=== PATIENT | female | born 1945 | race Caucasian/White ===

== ENCOUNTER 2019-04-01 08:54 | Inpatient (IN) | payer MEDICARE ==
[2019-04-01] MEDS ORDERED: methylPREDNISolone 125 MG* 2 ML VIAL IV ONE (09:05)
[2019-04-01] MEDS ORDERED: Albuterol/Ipratropium NEB.SOL* Albuterol 2.5 MG/Ipratropium 0.5 MG 3 ML INH ONE (09:05)
--- NOTE | 2019-04-01 09:07 | ED ---
Shortness of Breath - HPI Summary HPI Summary: This patient is a 73 year old female brought in by EMS presenting to [facility] with a chief complaint of SOB since 2 days ago. The patient reports dizziness, nausea , and vomiting. The patient has a Hx of COPD. The patient has a DNR that refuses CPR/intubation. She received nebulizer treatments by EMS en route. - History of Current Complaint Chief Complaint: EDShortnessOfBreath Time Seen by Provider: 04/01/19 08:58 Hx Obtained From: Patient Onset/Duration: Lasting Days Associated Signs & Symptoms: Wheezing - Risk Factors Pseudomonas: Chronic Lung Disease - Allergy/Home Medications Allergies/Adverse Reactions: Allergies Allergy/AdvReac Type Severity Reaction Status Date / Time latex Allergy Unknown Verified 04/01/19 09:42 Reaction Details Sulfa (Sulfonamide Allergy Unknown Verified 04/01/19 09:42 Antibiotics) Reaction Details Home Medications: Home Medications Albuterol 2.5MG/3ML (0.083%)* [Ventolin 2.5 MG/3 ML NEB.RASHAD*] 2.5 mg INH Q4H PRN 04/01/19 [History Confirmed 04/01/19] Fluoxetine HCl [Prozac] 60 mg PO DAILY 04/01/19 [History Confirmed 04/01/19] Fluticasone/Vilanterol [Breo Ellipta 200-25 Mcg INH] 1 each IH DAILY 04/01/19 [ History Confirmed 04/01/19] Gabapentin 400 mg PO TID 04/01/19 [History Confirmed 04/01/19] LORazepam [Ativan 0.5 MG TAB] 0.5 mg PO SEE INSTRUCTIONS PRN 04/01/19 [History Confirmed 04/01/19] Levothyroxine TAB* [Synthroid TAB*] 50 mcg PO DAILY 04/01/19 [History Confirmed 04/01/19] Montelukast Sodium TAB* [Singulair TAB*] 10 mg PO DAILY 04/01/19 [History Confirmed 04/01/19] Morphine CONCENTRATE ORAL SYR* 10 mg PO Q4HR PRN 04/01/19 [History Confirmed ] Omeprazole 20 mg PO DAILY 04/01/19 [History Confirmed 04/01/19] Potassium Chloride [K-Tab] 20 meq PO DAILY 04/01/19 [History Confirmed 04/01/19] Sennosides/Docusate Sodium [Senna Plus Tablet] 2 each PO BEDTIME 04/01/19 [ History Confirmed 04/01/19] Umeclidinium Emmett [Incruse Ellipta] 1 puff IN DAILY 04/01/19 [History Confirmed 04/01/19] dilTIAZem HCl [Diltiazem HCl] 90 mg PO BID 04/01/19 [History Confirmed 04/01/19] predniSONE [Prednisone 5 MG TAB] 5 mg PO DAILY 04/01/19 [History Confirmed 04/01] PMH/Surg Hx/FS Hx/Imm Hx Endocrine/Hematology History: Reports: Hx Thyroid Disease Respiratory History: Reports: Hx Chronic Obstructive Pulmonary Disease (COPD) Psychiatric History: Reports: Hx Anxiety, Hx Depression Infectious Disease History: No Infectious Disease History: Denies: Traveled Outside the [place] in Last 30 Days - Family History Known Family History: Negative: Seizure Disorder - Social History Alcohol Use: None Hx Substance Use: No Hx Tobacco Use: Yes Smoking Status (MU): Former Smoker Review of Systems Positive: Shortness Of Breath Positive: Vomiting, Nausea All Other Systems Reviewed And Are Negative: Yes Physical Exam - Summary Physical Exam Summary: Appearance: Well appearing, Skin: warm, dry, reflects adequate perfusion Head/face: normal Eyes: EOMI, LIBRADO ENT: normal Neck: supple, non-tender Respiratory: Bilateral wheezes. Cardiovascular: Tachycardia, pulses symmetrical Abdomen: non-tender, soft Musculoskeletal: normal, strength/ROM intact Neuro: A&Ox3 Triage Information Reviewed: Yes Vital Signs On Initial Exam: Initial Vitals Temp Pulse Resp BP Pulse Ox 99.0 F 123 34 147/79 92 04/01/19 08:58 04/01/19 08:58 04/01/19 08:58 04/01/19 08:58 04/01/19 08:58 Vital Signs Reviewed: Yes Diagnostics - Vital Signs Vital Signs Temp Pulse Resp BP Pulse Ox 04/01/19 08:58 99.0 F 123 34 147/79 92 - Laboratory Result Diagrams: 04/01/19 09:55 04/01/19 09:54 Lab Statement: Any lab studies that have been ordered have been reviewed, and results considered in the medical decision making process. - Radiology CXR Radiology Interpretation Completed By: Radiologist Summary of Radiographic Findings: Findings could be compatible with pulmonary edema/vascular congestion or early appearance of instersitial lung disease. There are no prior chest x-rays for comparison to comment on chronicity. ED Provider has reviewed this report. - EKG 0920 Cardiac Rate: Tachycardia - 119 BPM EKG Rhythm: Sinus Tachycardia Course/Dx - Course Course Of Treatment: This patient is a 73 year old female with a Hx of COPD brought in by EMS presenting to [facility] with a chief complaint of SOB since 2 days ago. The patient received breathing treatments in the ED. CXR revealed findings could be compatible with pulmonary edema/vascular congestion or early appearance of instersitial lung disease. There are no prior chest x-rays for comparison to comment on chronicity. Dr. Matamoros, hospitalist, accepted the patient for admission. The patient was agreeable with this plan. - Diagnoses Differential Diagnosis/HQI/PQRI: Positive: Asthma, Bronchitis, CHF, COPD Exacerbation, Pneumonia Provider Diagnoses: Pneumonia, COPD exacerbation - Critical Care Time Critical Care Time: 30-74 min Discharge - Sign-Out/Discharge Documenting (check all that apply): Patient Departure - Admission - Discharge Plan Condition: Stable Disposition: ADMITTED TO [facility] Referrals: Romy Terry MD [Medical Doctor] - - Billing Disposition and Condition Condition: STABLE Disposition: Admitted to [facility] - Attestation Statements Document Initiated by Anthony: Yes Documenting Sharronibkeyur: Shane Vazquez Provider For Whom Anthony is Documenting (Include Credential): Ortiz Devi MD Scribe Attestation: Shane Carter scribed for Ortiz Devi MD on 04/01/19 at 1130. Scribe Documentation Reviewed: Yes Provider Attestation: The documentation as recorded by the Shane morton accurately reflects the service I personally performed and the decisions made by , Ortiz Devi MD Status of Scribe Document: Viewed
[2019-04-01] MEDS ORDERED: Ondansetron INJ* 2 MG/ML VIAL IV ONE (09:15)
[2019-04-01 10:12] LABS: Activated Partial Thrombo Time 30.3 seconds (26.0-38.0); INR 0.98 (0.82-1.09)
[2019-04-01 10:18] LABS: Hematocrit 34 % (35-47); Hemoglobin 10.9 g/dL (12.0-16.0); Mean Corpuscular HGB Conc 32 g/dL (31-36); Mean Corpuscular Hemoglobin 29 pg (27-31); Mean Corpuscular Volume 91 fL (80-97); Mean Platelet Volume 7.2 fL (7.4-10.4); Platelet Count 610 10^3/uL (150-450); Red Cell Distribution Width 16 % (10-15); White Blood Count 34.7 10^3/uL (3.5-10.8)
[2019-04-01 10:23] LABS: Albumin 3.9 g/dL (3.2-5.2); Albumin/Globulin Ratio 1.3 (1-3); BUN/Creatinine Ratio 26.6 (8-20); Calcium 9.5 mg/dL (8.6-10.3); EGFR African American 86.3 (>60); EGFR Non-African American 71.3 (>60); Globulin 2.9 g/dL (2-4); Potassium 3.6 mmol/L (3.5-5.0); Total Bilirubin 0.4 mg/dL (0.2-1.0); Total Protein 6.8 g/dL (6.4-8.9)
[2019-04-01 10:24] LABS: Troponin I 0.27 ng/mL (<0.04)
[2019-04-01] MEDS ORDERED: Piperacillin/Tazobac ADVAN(*) 3.375 GM in NS 0.9% 100 ML* 100 ML IVPB ONE (10:25)
[2019-04-01 11:04] LABS: ABS Basophils 0.1 10^3/ul (0-0.2); ABS Lymphocytes 0.7 10^3/ul (1.0-4.8); ABS Monocytes 1.4 10^3/ul (0-0.8); ABS Neutrophils 32.5 10^3/ul (1.5-7.7); Lymphocyte % 2.1 %
[2019-04-01] MEDS ORDERED: Lorazepam PYXIS KEY PRN (11:50)
[2019-04-01] MEDS: NS 0.9% 1000 ML** 1,000 ML IV SCH ×2 (11:54→21:36)
[2019-04-01] MEDS ORDERED: Vancomycin per Pharmacy* NOTE FOLLOW UP SCH (12:00)
[2019-04-01] MEDS ORDERED: Vancomycin(*) 1,000 MG in NS 0.9% 250 ML* 250 ML IVPB ONE (12:00)
[2019-04-01] MEDS: Albuterol 2.5 MG/3 ML NEB.SOL* (0.083%) INH SCH ×3 (12:34→20:11)
[2019-04-01] MEDS: Azithromycin 500 mg/250 ml NS 500 MG/250 ML BAG IVPB SCH (14:01)
[2019-04-01 14:11] LABS: Troponin I 0.25 ng/mL (<0.04)
[2019-04-01] MEDS: Diltiazem TAB* 60 MG PO SCH ×2 (14:49→21:42)
[2019-04-01] MEDS: Gabapentin CAP(*) 400 MG PO SCH ×2 (14:50→21:41)
[2019-04-01] MEDS: Heparin VIAL(*) 5000 UNITS/ML VIAL (FIVE THOUSAND) SUBCUT SCH ×2 (14:50→21:23)
[2019-04-01] MEDS: LORazepam INJ* 2 MG/ML 1 ML VIAL IV PUSH PRN (16:41)
[2019-04-01] MEDS: Morphine ORAL CONCENTRATE* 5 MG/0.25 ML ORAL.SYRIN PO PRN ×2 (16:41→21:40)
[2019-04-01] MEDS: Lactobacillus Acidophilus* 1 TAB PO SCH ×2 (16:41→21:41)
[2019-04-01] MEDS: methylPREDNISolone SOD 40 MG* 1 ML VIAL IV SCH (16:41)
[2019-04-01] MEDS: Cefepime 2 GM in Dextrose(*) 2 GM/50 ML BAG IV SCH (18:03)
--- NOTE | 2019-04-01 20:18 | HP ---
HISTORY AND PHYSICAL: DATE OF ADMISSION: 04/01/19 PRIMARY CARE PROVIDER: Provider at [facility]. CHIEF COMPLAINT: Shortness of breath and hypoxia. HISTORY OF PRESENT ILLNESS: Ms. Barbosa is a 73-year-old female with history of end- stage COPD, who on the night prior to admission felt that she was being stalked by another resident. She noted that resident to be standing at door, peeping into her room. She became very nervous because of this and then subsequently developed severe shortness of breath. She called for nursing who gave her a nebulizer treatment due to marked wheezing. Several hours later, she called for another nebulizer treatment, however, it was too early and she was therefore given her dose of Roxanol. She received more Roxanol in the morning. Nursing went to check on the patient at some point early this morning and found her lying on the floor, cyanotic and with an O2 saturation of 48% on 4 L of oxygen. The patient was asked if she wanted to go to the emergency room and she said no. She was asked again and she again said no, then we called her daughter and the daughter said yes. The patient was subsequently brought to the emergency room for evaluation. At this point, despite the patient having comfort measures only dictated on her MOLST form, she does whish to be treated. She states that she chronically is severely short of breath, however, last night her breathing became worse. She denies any cough or sputum production. She denies any fever or chills. She denies any chest pain. The patient states that prior to arriving at [facility] at the end of February. She was living independently in [place]. Her daughter states that she had a hospitalization for respiratory issue approximately every other week. This went on for months and therefore, the patient moved to [facility] to see with more support she will be able to stay out of the hospital. PAST MEDICAL HISTORY: 1. COPD with chronic hypoxic respiratory failure, on 4 L O2 continuously. 2. Baseline tachycardia. PAST SURGICAL HISTORY: 1. D and C. 2. Left foot surgery. MEDICATIONS: 1. Omeprazole 20 mg p.o. daily. 2. Prednisone 5 mg p.o. daily. 3. Senna/docusate 2 caps p.o. q.h.s. 4. Potassium chloride 20 mEq p.o. daily. 5. Singulair 10 mg p.o. daily. 6. Ativan 0.5 mg p.o. daily p.r.n. anxiety. 7. Fluoxetine 60 mg p.o. daily. 8. Albuterol 1 neb inhale q.4 hours p.r.n. shortness of breath. 9. Diltiazem 90 mg p.o. b.i.d. 10. Incruse Ellipta 1 puff inhale daily. 11. Levothyroxine 50 mcg p.o. daily. 12 Gabapentin 400 mg p.o. t.i.d. 13. Breo Ellipta 1 puff inhale daily. 14. Roxanol 10 mg p.o. q.4 hours p.r.n. air hunger. ALLERGIES: SULFA. FAMILY HISTORY: Mom at the age of 73 of liver cancer. Dad at the age of 65, he had an PA and CVA. SOCIAL HISTORY: The patient is a former smoker. She believes she quit approximately 12 years ago. She smokes approximately 2 packs per day x50 years. She does not drink alcohol. 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 She is . She has 3 children. Her daughter, Shweta, who is present with her during her history and physical, is her healthcare proxy. REVIEW OF SYSTEMS: A complete 11 system review of systems was obtained. Pertinent positives and negatives are as HPI. In addition, the patient does states she has chronic anorexia and poor appetite. She did vomit just prior to EMS bringing her to the hospital and she has felt nauseous in the emergency room. She has significant anxiety and the rest of the review of systems was negative. PHYSICAL EXAMINATION GENERAL: The patient is a well-developed, elderly chronically ill appearing female, seen sitting up on bed. Appearing to be tachypneic and in mild respiratory distress. VITAL SIGNS: Blood pressure 108/80, pulse 118, respirations 19, temperature 99 , O2 sat 92% on 4 L. HEENT: Pupils are equal and round. Extraocular muscles were intact. Oropharynx is clear. Oral mucosa is moist. There is no submandibular, cervical , supraclavicular adenopathy. Thyroid is not enlarged. No thyroid nodules are noted. PULMONARY: There are minimal breath sounds heard in all lung barr. CARDIAC: Normal S1, S2. Heart rate is regular, but tachycardic. There is no lower extremity edema. ABDOMEN: Bowel sounds present. Abdomen is soft, nontender, nondistended. MUSCULOSKELETAL: There is cyanosis or clubbing of the digits. There is full active range of all 4 extremities. SKIN: Warm and dry. There are no rashes. NEUROLOGIC: Cranial nerves II through XII are grossly intact. Sensation is intact to light touch. Strength is 5/5 and symmetric in both upper and lower extremities bilaterally. PSYCH: The patient is alert. She is oriented x3. Affect appears appropriate. DIAGNOSTIC DATA/LAB DATA: WBC 34.7, hemoglobin 10.9, hematocrit 34, platelet 610. INR 0.98. Sodium 139, potassium 3.6, chloride 97, CO2 31, BUN 21, creatinine 0.79, glucose 128, lactic acid 0.8, calcium 9.5. Bilirubin 0.4, AST 19, AFT 20, alk phos 74. Troponin 0.27. BNP 57. Albumin 3.9. EKG reveals sinus tachycardia. Chest x-ray findings could be compatible with pulmonary edema/vascular congestion or early appearance of interstitial lung disease. There are no prior chest x-rays for comparison. ASSESSMENT AND PLAN: Ms. Barbosa is a 73-year-old female who has a history of end stage renal disease and chronic hypoxic respiratory failure, on 4 L O2 continuously, who developed probable chronic obstructive pulmonary disease exacerbation at the residential, prompting transfer to the emergency room for evaluation. 1. Chronic obstructive pulmonary disease exacerbation. At this point, the patient is on her baseline level of O2. She, however, is quite tachypneic and appearing to be in respiratory distress. The patient will be admitted for IV steroids, round the clock nebulizer treatments and IV antibiotics, though I do not suspect pneumonia based on the chest x-ray and history. We will likely give broad spectrum antibiotics for the next couple of days and weaned down to an oral antibiotic to complete a course of therapy. The patient is aware that her end stage chronic obstructive pulmonary disease going to continue to give her issues. She has already had very frequent hospitalization in [facility]. I believe continued discussions about her goals of care should be had. The patient's daughter was under the impression this patient was on hospice at the residential. We will need to determine if this is correct or not. I did explain that it is not feasible to have hospice at the residential and keep coming back and forth to hospital for admissions. We will continue Roxanol for air hunger and I will add IV Ativan for severe anxiety. 2. Sinus tachycardia and elevated troponin. I suspect these are being driven by the patient's respiratory distress and hypoxia earlier this morning. Follow up troponin has been ordered for 1300. I am not going to give anything to slow her heart rate at this point, but we will give IV fluids to see if improving her hydration status will help her heart rate. If she remains tachycardic, utilizing a calcium channel miguel may be necessary to bring heart rate down. Elevated troponin, I suspect is demand ischemia, again related to her respiratory distress, hypoxia, and ongoing sinus tachycardia. 3. Hypothyroidism, continue Synthroid. 4. DVT prophylaxis. According to the Adult Thrombosis Prophylaxis Risk Factor Assessment Guide, the patient has a total risk factor score of 4 making her high risk. She will be placed on heparin 500 units subcutaneous q.8 hours. 5. Code status is DNR/DNI. [id number]/[facility] #: [id number] MTDElver
[2019-04-01] MEDS: Senna TAB 8.6 mg* TAB PO SCH (21:41)
[2019-04-01] MEDS: Docusate CAP* 100 MG PO SCH (21:42)
[2019-04-02] MEDS: Albuterol 2.5 MG/3 ML NEB.SOL* (0.083%) INH SCH ×6 (00:30→19:37)
[2019-04-02] MEDS: methylPREDNISolone SOD 40 MG* 1 ML VIAL IV SCH ×3 (00:55→18:18)
[2019-04-02] MEDS: Vancomycin(*) 1,000 MG in NS 0.9% 250 ML* 250 ML IVPB SCH ×2 (00:55→12:46)
[2019-04-02] MEDS: Morphine ORAL CONCENTRATE* 5 MG/0.25 ML ORAL.SYRIN PO PRN ×5 (04:34→22:30)
[2019-04-02] MEDS: Heparin VIAL(*) 5000 UNITS/ML VIAL (FIVE THOUSAND) SUBCUT SCH ×3 (06:32→22:36)
[2019-04-02] MEDS: Diltiazem TAB* 60 MG PO SCH ×3 (06:33→22:29)
[2019-04-02] MEDS: Cefepime 2 GM in Dextrose(*) 2 GM/50 ML BAG IV SCH ×2 (06:33→18:17)
[2019-04-02 06:55] LABS: Hematocrit 28 % (35-47); Hemoglobin 8.8 g/dL (12.0-16.0); Mean Corpuscular HGB Conc 32 g/dL (31-36); Mean Corpuscular Hemoglobin 29 pg (27-31); Mean Corpuscular Volume 91 fL (80-97); Mean Platelet Volume 6.8 fL (7.4-10.4); Platelet Count 469 10^3/uL (150-450); Red Blood Count 3.04 10^6 /uL (3.70-4.87); Red Cell Distribution Width 16 % (10-15); White Blood Count 37.9 10^3/uL (3.5-10.8)
[2019-04-02 07:01] LABS: ABS Basophils 0.1 10^3/ul (0-0.2); ABS Lymphocytes 0.4 10^3/ul (1.0-4.8); ABS Monocytes 0.8 10^3/ul (0-0.8); ABS Neutrophils 36.5 10^3/ul (1.5-7.7); Lymphocyte % 1.2 %
[2019-04-02 07:18] LABS: Anion Gap 6 mmol/L (2-11); BUN/Creatinine Ratio 43.5 (8-20); Blood Urea Nitrogen 20 mg/dL (6-24); CO2 Carbon Dioxide 33 mmol/L (22-32); Chloride 99 mmol/L (101-111); EGFR African American 161.1 (>60); EGFR Non-African American 133.2 (>60); Glucose 132 mg/dL (70-100); Potassium 4.2 mmol/L (3.5-5.0); Sodium 138 mmol/L (135-145)
[2019-04-02] MEDS: LORazepam INJ* 2 MG/ML 1 ML VIAL IV PUSH PRN ×2 (08:12→18:12)
[2019-04-02] MEDS: Mometasone/Formoter 200/5 MDI INH SCH ×2 (08:14→19:37)
[2019-04-02] MEDS: FLUoxetine CAP* 20 MG PO SCH (08:34)
[2019-04-02] MEDS: Gabapentin CAP(*) 400 MG PO SCH ×3 (08:34→22:29)
[2019-04-02] MEDS: Levothyroxine TAB* 50 MCG TAB PO SCH (08:34)
[2019-04-02] MEDS: Pantoprazole TAB * 40 MG TAB PO SCH (08:35)
[2019-04-02] MEDS: Montelukast Sodium TAB* 10 MG PO SCH (08:36)
[2019-04-02] MEDS: Potassium Chlor TAB* 20 MEQ TAB.ER PO SCH (08:36)
[2019-04-02] MEDS: Lactobacillus Acidophilus* 1 TAB PO SCH ×2 (08:36→22:29)
--- NOTE | 2019-04-02 12:31 | PN ---
Subjective Date of Service: 04/02/19 Interval History: States she feels short of breath getting out of bed but at rest she is fine. Family History: Unchanged from Admission Social History: Unchanged from Admission Past Medical History: Unchanged from Admission Objective Active Medications: Albuterol (Ventolin 2.5 Mg/3 Ml Neb.Vandana*) 2.5 mg INH [id number] AWAKE [facility] Last Admin: 04/02/19 11:52 Dose: 2.5 mg Diltiazem HCl (Cardizem Tab*) 60 mg PO Q8HR [facility] Last Admin: 04/02/19 06:33 Dose: 60 mg Docusate Sodium (Colace Cap*) 100 mg PO BEDTIME [facility] Last Admin: 04/01/19 21:42 Dose: 100 mg Fluoxetine HCl (Prozac Cap*) 60 mg PO DAILY [facility] Last Admin: 04/02/19 08:34 Dose: 60 mg Gabapentin (Neurontin Cap(*)) 400 mg PO TID [facility] Last Admin: 04/02/19 08:34 Dose: 400 mg Heparin Sodium (Porcine) (Heparin Vial(*)) 5,000 units SUBCUT Q8HR [facility] Last Admin: 04/02/19 06:32 Dose: Not Given Azithromycin (Zithromax 500 Mg/250 Ml) 500 mg in 250 mls @ 250 mls/hr IVPB Q24H [facility] Last Admin: 04/01/19 14:01 Dose: 250 mls/hr Cefepime HCl (Maxipime 2 Gm In Dextrose Duplex (*)) 2 gm in 50 mls @ 100 mls/ hr IV Q12H [facility] Last Admin: 04/02/19 06:33 Dose: 100 mls/hr Sodium Chloride (Ns 0.9% 1000 Ml) 1,000 mls @ 100 mls/hr IV PER RATE [facility] Last Admin: 04/01/19 21:36 Dose: 100 mls/hr Vancomycin HCl 1,000 mg/ (Sodium Chloride) 250 mls @ 166.667 mls/hr IVPB Q12H [facility] Last Admin: 04/02/19 00:55 Dose: 166.667 mls/hr Lactobacillus Rhamnosus (Lactobacillus Acidophilus*) 1 tab PO BID [facility] Last Admin: 04/02/19 08:36 Dose: 1 tab Levothyroxine Sodium (Synthroid Tab*) 50 mcg PO DAILY@0600 [facility] Last Admin: 04/02/19 08:34 Dose: Not Given Lorazepam (Ativan Inj*) 0.5 mg IV PUSH Q6H PRN PRN Reason: ANXIETY Last Admin: 04/02/19 08:12 Dose: 0.5 mg Methylprednisolone Sodium Succinate (Solu-Medrol 40 Mg) 40 mg IV Q8H [facility] Last Admin: 04/02/19 08:34 Dose: 40 mg Miscellaneous (Ativan Pyxis Sandoval) 1 ea N/A .ATIVAN IV SANDOVAL PRN PRN Reason: PYXIS SANDOVAL Mometasone Furoate/Formoterol Fumar (Dulera 200/5 Mdi*) 2 puff INH BID [facility] Last Admin: 04/02/19 08:14 Dose: Not Given Montelukast Sodium (Singulair Tab*) 10 mg PO DAILY [facility] Last Admin: 04/02/19 08:36 Dose: 10 mg Morphine Sulfate (Morphine Oral Concentrate*) 10 mg PO Q4HR PRN PRN Reason: air hunger Last Admin: 04/02/19 08:36 Dose: 10 mg Pantoprazole Sodium (Protonix Tab*) 40 mg PO DAILY [facility] Last Admin: 04/02/19 08:35 Dose: 40 mg Pharmacy Consult (Vancomycin Per Pharmacy*) 1 note FOLLOW UP .VANC PER PHARMACY [facility]; Protocol Pharmacy Profile Note (Vancomycin Trough Check) 1 note FOLLOW UP .ENTER TIME ONE Stop: 04/03/19 11:31 Potassium Chloride (Klor Con Er Tab*) 20 meq PO DAILY [facility] Last Admin: 04/02/19 08:36 Dose: 20 meq Senna (Senokot Tab*) 2 tab PO BEDTIME [facility] Last Admin: 04/01/19 21:41 Dose: 2 tab Vital Signs - 8 hr 04/02/19 04/02/19 04/02/19 04:34 08:00 08:12 Temperature Pulse Rate Respiratory 26 28 32 Rate Blood Pressure (mmHg) O2 Sat by Pulse Oximetry 04/02/19 04/02/19 04/02/19 08:18 08:25 08:34 Temperature 98.1 F Pulse Rate 87 90 Respiratory 28 32 18 Rate Blood Pressure 116/69 (mmHg) O2 Sat by Pulse 94 95 Oximetry 04/02/19 04/02/19 04/02/19 08:36 09:14 11:15 Temperature 96.8 F Pulse Rate 90 Respiratory 32 28 16 Rate Blood Pressure 133/68 (mmHg) O2 Sat by Pulse 96 Oximetry 04/02/19 11:59 Temperature Pulse Rate 87 Respiratory 18 Rate Blood Pressure (mmHg) O2 Sat by Pulse 96 Oximetry Oxygen Devices in Use Now: Nasal Cannula - 4L Eyes: No Scleral Icterus Respiratory: Clear to Auscultation Cardiovascular: NL Sounds; No Murmurs; No JVD, RRR Abdominal: NL Sounds; No Tenderness; No Distention, No Hepatosplenomegaly Extremities: No Edema Skin: No Rash or Ulcers Neurological: Alert and Oriented x 3 Result Diagrams: 04/02/19 06:42 04/02/19 06:42 Microbiology and Other Data: Microbiology 04/01/19 09:54 Aerobic Blood Culture - Preliminary Blood Venous No Growth Day 1 Anaerobic Blood Culture - Preliminary No Growth Day 1 04/01/19 09:29 Aerobic Blood Culture - Preliminary Blood Venous No Growth Day 1 Anaerobic Blood Culture - Preliminary No Growth Day 1 04/01/19 11:29 Nasal Screen MRSA (PCR) - Final Nasal Mrsa Detected Assess/Plan/Problems-Billing Assessment: 73yoF with COPD, Hypothyroidism here due to worsening shortness of breath from COPD exacerbation. - Patient Problems (1) COPD exacerbation Current Visit: Yes Status: Acute Code(s): J44.1 - CHRONIC OBSTRUCTIVE PULMONARY DISEASE W (ACUTE) EXACERBATION SNOMED Code(s): 781840365 Comment: -Continue steroids, nebs, ABx. -Patient requesting to be placed on BiPAP at night. (2) Elevated troponin Current Visit: Yes Status: Acute Code(s): R74.8 - ABNORMAL LEVELS OF OTHER SERUM ENZYMES SNOMED Code(s): 918720506 Comment: -Tachycardia vs hypoxia induced. -Trending down. -Check ECHO. -Consider cardiology if repeat level worsens or ECHO suggests abnormality. (3) Leukocytosis Current Visit: Yes Status: Acute Code(s): D72.829 - ELEVATED WHITE BLOOD CELL COUNT, UNSPECIFIED SNOMED Code(s): 717285036 Comment: Follow up cultures. Repeat lab in AM. (4) Anemia Current Visit: Yes Status: Acute Code(s): D64.9 - ANEMIA, UNSPECIFIED SNOMED Code(s): 734385382 Comment: -Work-up initiated with Iron (Low), TIBC, B12(Low), Folate(Low), Stool occult and Ferritin (although ferritin might be elevated falsely due to leukocytosis) -Replace via IV to improve the anemia more quickly. -Outpatient work-up for malabsorbtion syndrome if stool occult is negative. -For no r/o any celiac causing malabsorbtion (5) Thrombocytosis Current Visit: Yes Status: Acute Comment: -Reactive from anemia. (6) Hypothyroidism Current Visit: Yes Status: Acute Code(s): E03.9 - HYPOTHYROIDISM, UNSPECIFIED SNOMED Code(s): 20246215 Comment: -Continue home levothyroxine. -Check TSH. (7) DVT prophylaxis Current Visit: Yes Status: Acute Code(s): Z29.9 - ENCOUNTER FOR PROPHYLACTIC MEASURES, UNSPECIFIED SNOMED Code(s): 096484135 Comment: SubCut Heparin.
[2019-04-02 13:15] LABS: Troponin I 0.07 ng/mL (<0.04)
[2019-04-02 15:06] LABS: Total Iron Binding Capacity 308 mcg/dL (250-450); Transferrin 220 mg/dL (203-362)
[2019-04-02 15:07] LABS: % Iron Saturation 6 % (15-55); Iron < 20 ug/dL (50-212)
[2019-04-02 15:16] LABS: TSH (Thyroid Stimulating Horm) 0.47 mcIU/mL (0.34-5.60)
[2019-04-02 15:23] LABS: Ferritin 200.8 ng/mL (11-307)
[2019-04-02 15:27] LABS: Folate 2.59 ng/mL (>3.99)
[2019-04-02] MEDS: Azithromycin 500 mg/250 ml NS 500 MG/250 ML BAG IVPB SCH (15:40)
[2019-04-02] MEDS: NS 0.9% 1000 ML** 1,000 ML IV SCH (15:40)
--- NOTE | 2019-04-02 17:48 | ECHO ---
*[facility]* [place] [address] Fax #: [phone] Transthoracic Echocardiogram Patient: Carole Barbosa : 1945 Study Date: 04/02/2019 Age: 73 Gender: F HR: 101 bpm Height: 66 in /167.6 cm BSA: 1.71 m^2 Weight: 137.7 lb /62.6 kg BMI: 22.3 kg/m^2 *Assorter: * April Milner RDCS RN *Referring Physician: * Alexander Chavez *Reading Physician: * Dc Patterson MD Indications: SOB. History: Chronic obstructive pulmonary disease. Tachycardia. Risk factors: Former tobacco use. Conclusions Summary: - Left ventricle: Systolic function is hyperdynamic. The estimated ejection fraction is 60-65%. Wall motion is normal; there are no regional wall motion abnormalities. - Mitral valve: There is trace to mild regurgitation. - Aortic valve: There is no significant regurgitation. - Tricuspid valve: There is trace regurgitation. - Pulmonary arteries: Systolic pressure can not be accurately estimated. Study data: Transthoracic echocardiogram. Procedure: Transthoracic echocardiography was performed. The study was technically limited due to COPD and Smoking history. Complete 2D, spectral Doppler, and color flow Doppler. Location: Bedside. Patient status: Inpatient. Patient room number: 451. Rhythm: Tachycardia. Findings Left ventricle: The cavity size is below normal. Wall thickness is normal. Systolic function is hyperdynamic. The estimated ejection fraction is 60-65%. Wall motion is normal; there are no regional wall motion abnormalities. There is no consistent Doppler evidence of clinically significant diastolic dysfunction. Right ventricle: The cavity size is normal. Systolic function is normal. Left atrium: The atrium is normal in size. Right atrium: The atrium is normal in size. Mitral valve: The leaflets are mildly thickened. There is no evidence of stenosis. There is trace to mild regurgitation. Aortic valve: Not well visualized. There is no evidence of stenosis. There is no significant regurgitation. Tricuspid valve: The valve is structurally normal. The leaflets are normal thickness. There is no evidence of stenosis. There is trace regurgitation. Pulmonic valve: Not well visualized. There is no evidence of stenosis. There is no significant regurgitation. Aorta: Aortic root: The aortic root is not dilated. Ascending aorta: The ascending aorta is not visualized. Aortic arch: The aortic arch is not visualized. Pericardium: There is no pericardial effusion. Pulmonary arteries: Not well visualized. Systolic pressure can not be accurately estimated. Systemic veins: Inferior vena cava: The vessel is normal in size. There is (< 50%) respiratory change in the IVC dimension. Measurements Left ventricle Value Ref Right atrium Value Ref FREDDY, LAX (L) 3.5 cm 3.8 - 5.2 ML dim, ES, A4C 3.0 cm 2.6 - 4.4 ESD, LAX 2.5 cm 2.2 - 3.5 SI dim, ES, A4C 3.8 cm 3.4 - 5.3 FS, LAX 32 % 27 - 45 PW, ED (H) 1.0 cm 0.6 - 0.9 Aortic valve Value Ref IVS/PW, ED 0.99 Peak v, S 1.8 m/sec --------- E', lat jose, TDI (L) 8.9 cm/sec >=10.0 VTI, S 34.9 cm --- ------ E/e', lat jose, 14 Mean grad, S 7.0 mm Hg ------ --- TDI Peak grad, S 14.0 mm Hg --------- E', med jose, TDI 9.5 cm/sec >=7.0 LVOT/AV, VTI ratio 0.66 --- ------ E/e', med jose, 13 TDI Mitral valve Value Ref E', avg, TDI 9.2 cm/sec Peak E 1.25 m/sec ------ --- E/e', avg, TDI 14 <=14 Peak A 1.57 m/sec --- ------ Decel time 211 ms --------- LVOT Value Ref Peak grad, D 6.3 mm Hg --------- Peak abeilno, S 1.18 m/sec Peak E/A ratio 0.8 --------- VTI, S 23.2 cm Peak grad, S 6 mm Hg Pulmonic valve Value Ref Mean grad, S 3 mm Hg Peak v, S 0.98 m/sec --------- Peak grad, S 4.0 mm Hg --------- Ventricular septum Value Ref IVS, ED (H) 1.0 cm 0.6 - 0.9 Aortic root Value Ref Root diam 2.7 cm <3.9 Right ventricle Value Ref FREDDY minor ax, 3.4 cm 1.9 - 3.5 Inferior vena cava Value Ref A4C mid Diam 2.0 cm --------- Left atrium Value Ref AP dim, ES 3.30 cm 2.70 - 3.80 ML dim, A4C 3.0 cm SI dim, A4C 4.7 cm Vol/bsa, ES, 1-p 16 ml/m^2 11 - 40 A4C Vol/bsa, ES, A/L 16 ml/m^2 16 - 34 Legend: (L) and (H) ale values outside specified reference range. Prepared and electronically signed by Dc Patterson MD 04/02/2019 17:48
[2019-04-02] MEDS ORDERED: Cyanocobalamin INJ * 1,000 MCG/ML VIAL 1 ML VIAL IM ONE (18:00)
[2019-04-02] MEDS ORDERED: Ferric Gluconate IV* 125 MG in NS 0.9% 100 ML* 100 ML IVPB SCH (18:00)
[2019-04-02] MEDS: Docusate CAP* 100 MG PO SCH (22:28)
[2019-04-02] MEDS: Senna TAB 8.6 mg* TAB PO SCH (22:29)
[2019-04-03] MEDS: Vancomycin(*) 1,000 MG in NS 0.9% 250 ML* 250 ML IVPB SCH ×2 (00:57→12:38)
[2019-04-03] MEDS: methylPREDNISolone SOD 40 MG* 1 ML VIAL IV SCH ×3 (00:57→17:18)
[2019-04-03] MEDS: Albuterol 2.5 MG/3 ML NEB.SOL* (0.083%) INH SCH ×3 (02:00→20:46)
[2019-04-03] MEDS: Diltiazem TAB* 60 MG PO SCH ×3 (06:26→22:24)
[2019-04-03] MEDS: Levothyroxine TAB* 50 MCG TAB PO SCH (06:26)
[2019-04-03] MEDS: Cefepime 2 GM in Dextrose(*) 2 GM/50 ML BAG IV SCH ×2 (06:26→17:18)
[2019-04-03] MEDS: NS 0.9% 1000 ML** 1,000 ML IV SCH (06:29)
[2019-04-03] MEDS: Morphine ORAL CONCENTRATE* 5 MG/0.25 ML ORAL.SYRIN PO PRN ×5 (06:45→22:26)
[2019-04-03] MEDS: Heparin VIAL(*) 5000 UNITS/ML VIAL (FIVE THOUSAND) SUBCUT SCH ×3 (07:41→23:00)
[2019-04-03] MEDS: Mometasone/Formoter 200/5 MDI INH SCH ×2 (07:44→20:46)
[2019-04-03] MEDS: LORazepam INJ* 2 MG/ML 1 ML VIAL IV PUSH PRN ×2 (08:44→17:17)
[2019-04-03] MEDS: Pantoprazole TAB * 40 MG TAB PO SCH (08:46)
[2019-04-03] MEDS: Lactobacillus Acidophilus* 1 TAB PO SCH ×2 (08:46→22:24)
[2019-04-03] MEDS: FLUoxetine CAP* 20 MG PO SCH (08:47)
[2019-04-03] MEDS: Potassium Chlor TAB* 20 MEQ TAB.ER PO SCH ×2 (08:47→08:51)
[2019-04-03] MEDS: Gabapentin CAP(*) 400 MG PO SCH ×3 (08:47→22:24)
[2019-04-03] MEDS: Montelukast Sodium TAB* 10 MG PO SCH (08:48)
[2019-04-03] MEDS: Albuterol 2.5 MG/3 ML NEB.SOL* (0.083%) INH PRN ×2 (08:51→14:10)
[2019-04-03] MEDS ORDERED: Folic Acid IV* 1 MG/0.2 ML SYRINGE IV SCH (09:00)
[2019-04-03] MEDS: Folic Acid IV* 1 MG in NS 0.9% 50 ML* 50 ML IVPB SCH (10:55)
[2019-04-03] MEDS ORDERED: Vancomycin Trough Check NOTE FOLLOW UP ONE (11:30)
[2019-04-03 11:50] LABS: Hematocrit 29 % (35-47); Hemoglobin 9.1 g/dL (12.0-16.0); Mean Corpuscular HGB Conc 32 g/dL (31-36); Mean Corpuscular Hemoglobin 29 pg (27-31); Mean Corpuscular Volume 92 fL (80-97); Red Blood Count 3.12 10^6 /uL (3.70-4.87); Red Cell Distribution Width 16 % (10-15); White Blood Count 35.8 10^3/uL (3.5-10.8)
[2019-04-03 11:51] LABS: ABS Basophils 0.1 10^3/ul (0-0.2); ABS Lymphocytes 0.3 10^3/ul (1.0-4.8); ABS Monocytes 0.8 10^3/ul (0-0.8); ABS Neutrophils 34.6 10^3/ul (1.5-7.7); Eosinophil % 0.1 %; Lymphocyte % 0.8 %; Nucleated Red Blood Cells % 0.1
--- NOTE | 2019-04-03 12:20 | PN ---
Subjective Date of Service: 04/03/19 Interval History: Nursing reports that patient expresses she wished she had been left to pass away when she was found with hypoxia at [facility] "because I would have been comfortable." When I speak with her, she emphasizes that now that she is at the hospital, she would like to continue with treatment. She is interested in palliative services. Additionally, nursing reports that patient was breathing with pursed lips and very tachypneic this AM. Frequency of morphine dose was increased and this improved. Patient reports her breathing is comfortable at rest. She has worsened dyspnea with exertion and additionally endorses dizziness with exertion. She denies chest pain, abd pain, fever/chills. Family History: Unchanged from Admission Social History: Unchanged from Admission Past Medical History: Unchanged from Admission Objective Active Medications: Albuterol (Ventolin 2.5 Mg/3 Ml Neb.Vandana*) 2.5 mg INH [id number] AWAKE PRN PRN Reason: SOB/WHEEZING Last Admin: 04/03/19 08:51 Dose: 2.5 mg Diltiazem HCl (Cardizem Tab*) 60 mg PO Q8HR [facility] Last Admin: 04/03/19 06:26 Dose: 60 mg Docusate Sodium (Colace Cap*) 100 mg PO BEDTIME [facility] Last Admin: 04/02/19 22:28 Dose: 100 mg Fluoxetine HCl (Prozac Cap*) 60 mg PO DAILY [facility] Last Admin: 04/03/19 08:47 Dose: 60 mg Gabapentin (Neurontin Cap(*)) 400 mg PO TID [facility] Last Admin: 04/03/19 08:47 Dose: 400 mg Heparin Sodium (Porcine) (Heparin Vial(*)) 5,000 units SUBCUT Q8HR [facility] Last Admin: 04/03/19 07:41 Dose: Not Given Azithromycin (Zithromax 500 Mg/250 Ml) 500 mg in 250 mls @ 250 mls/hr IVPB Q24H [facility] Last Admin: 04/02/19 15:40 Dose: 250 mls/hr Cefepime HCl (Maxipime 2 Gm In Dextrose Duplex (*)) 2 gm in 50 mls @ 100 mls/ hr IV Q12H [facility] Last Admin: 04/03/19 06:26 Dose: 100 mls/hr Vancomycin HCl 1,000 mg/ (Sodium Chloride) 250 mls @ 166.667 mls/hr IVPB Q12H [facility] Last Admin: 04/03/19 00:57 Dose: 166.667 mls/hr Ferric Sodium Gluconate Complex 125 mg/ Sodium Chloride 110 mls @ 110 mls/hr IVPB DAILY@1800 [facility] Stop: 04/06/19 17:59 Last Admin: 04/02/19 18:38 Dose: 110 mls/hr Folic Acid 1 mg/ Sodium (Chloride) 50.2 mls @ 100.4 mls/hr IVPB DAILY [facility] Last Admin: 04/03/19 10:55 Dose: 100.4 mls/hr Lactobacillus Rhamnosus (Lactobacillus Acidophilus*) 1 tab PO BID [facility] Last Admin: 04/03/19 08:46 Dose: 1 tab Levothyroxine Sodium (Synthroid Tab*) 50 mcg PO DAILY@0600 [facility] Last Admin: 04/03/19 06:26 Dose: 50 mcg Lorazepam (Ativan Inj*) 0.5 mg IV PUSH Q6H PRN PRN Reason: ANXIETY Last Admin: 04/03/19 08:44 Dose: 0.5 mg Methylprednisolone Sodium Succinate (Solu-Medrol 40 Mg) 40 mg IV Q8H [facility] Last Admin: 04/03/19 08:46 Dose: 40 mg Miscellaneous (Ativan Pyxis Sandoval) 1 ea N/A .ATIVAN IV SANDOVAL PRN PRN Reason: PYXIS SANDOVAL Mometasone Furoate/Formoterol Fumar (Dulera 200/5 Mdi*) 2 puff INH BID [facility] Last Admin: 04/03/19 07:44 Dose: Not Given Montelukast Sodium (Singulair Tab*) 10 mg PO DAILY [facility] Last Admin: 04/03/19 08:48 Dose: 10 mg Morphine Sulfate (Morphine Oral Concentrate*) 10 mg PO Q2H PRN PRN Reason: air hunger Last Admin: 04/03/19 09:18 Dose: 10 mg Pantoprazole Sodium (Protonix Tab*) 40 mg PO DAILY [facility] Last Admin: 04/03/19 08:46 Dose: 40 mg Pharmacy Consult (Vancomycin Per Pharmacy*) 1 note FOLLOW UP .VANC PER PHARMACY [facility]; Protocol Potassium Chloride (Klor Con Er Tab*) 20 meq PO DAILY [facility] Last Admin: 04/03/19 08:51 Dose: Not Given Senna (Senokot Tab*) 2 tab PO BEDTIME [facility] Last Admin: 04/02/19 22:29 Dose: 2 tab Vital Signs - 8 hr 04/03/19 04/03/19 04/03/19 06:45 07:15 07:58 Temperature 97.6 F Pulse Rate 83 Respiratory 32 24 28 Rate Blood Pressure 140/77 (mmHg) O2 Sat by Pulse 91 91 Oximetry 04/03/19 04/03/19 04/03/19 08:44 08:47 08:48 Temperature Pulse Rate Respiratory 34 34 34 Rate Blood Pressure (mmHg) O2 Sat by Pulse Oximetry 04/03/19 04/03/19 04/03/19 09:18 11:38 11:39 Temperature Pulse Rate Respiratory 38 24 24 Rate Blood Pressure (mmHg) O2 Sat by Pulse Oximetry Oxygen Devices in Use Now: Nasal Cannula Appearance: elderly white female, laying in hospital bed, appearing comfortable and in NAD Eyes: No Scleral Icterus, PERRLA Ears/Nose/Mouth/Throat: Mucous Membranes Moist Neck: NL Appearance and Movements; NL JVP Respiratory: Symmetrical Chest Expansion and Respiratory Effort, - - dimished lung sounds throughout, otherwise clear to auscultation Cardiovascular: NL Sounds; No Murmurs; No JVD, RRR Abdominal: - - abd soft, nontender, nondistended Extremities: No Edema, No Clubbing, Cyanosis Skin: - - skin is warm, dry, intact Neurological: Alert and Oriented x 3, NL Muscle Strength and Tone Result Diagrams: 04/03/19 11:30 04/03/19 16:00 Microbiology and Other Data: Microbiology 04/01/19 09:54 Aerobic Blood Culture - Preliminary Blood Venous No Growth Day 1 Anaerobic Blood Culture - Preliminary No Growth Day 1 04/01/19 09:29 Aerobic Blood Culture - Preliminary Blood Venous No Growth Day 1 Anaerobic Blood Culture - Preliminary No Growth Day 1 04/01/19 11:29 Nasal Screen MRSA (PCR) - Final Nasal Mrsa Detected Assess/Plan/Problems-Billing Assessment: 73yoF with COPD on 4L O2 at home and Hypothyroidism, presents from [facility] where she is a skilled nursing resident due to hypoxia to 48%. - Patient Problems (1) Acute and chronic respiratory failure Current Visit: Yes Status: Acute Code(s): J96.20 - ACUTE AND CHR RESP FAILURE, UNSP W HYPOXIA OR HYPERCAPNIA SNOMED Code(s): 01493231 Comment: -initially with hypoxia to 48% at [facility] -patient uses 4L oxygen and prn morphine at [facility] for COPD -patient with increased dyspnea between morphine doses today per nursing, increased frequency and patient more comfortable at time of my eval -discussed with patient, she still wants aggressive medical treatment though is open to discussing hospice -consult to Dr. Bello, appreciate recommendations -cont dulera, duonebs, solumedrol, prn ativan, singulair (2) Elevated troponin Current Visit: Yes Status: Acute Code(s): R74.8 - ABNORMAL LEVELS OF OTHER SERUM ENZYMES SNOMED Code(s): 443184741 Comment: -Tachycardia vs hypoxia induced. -Troponin trended down to 0.07 -echo without concern for ACS (3) Leukocytosis Current Visit: Yes Status: Acute Code(s): D72.829 - ELEVATED WHITE BLOOD CELL COUNT, UNSPECIFIED SNOMED Code(s): 980924677 Comment: -possible due to stress, CXR does appear abnormal and there are no previous CXRs for comparison -pt last received glucocorticoids outpatient on 03/12/19 per [facility] records and did not receive from ambulance either; therefore this is likely not the explanation as she had this leukocytosis upon arrival -will order UA -not ordering CT chest at this time as this will likely not globe changer as she is already receiving azithromycin and cefepime -requested pathologist comment (4) Thrombocytosis Current Visit: Yes Status: Acute Comment: -likely reactive but requested pathologist comment -plt results pending today, clumped (5) Hypothyroidism Current Visit: Yes Status: Acute Code(s): E03.9 - HYPOTHYROIDISM, UNSPECIFIED SNOMED Code(s): 96577448 Comment: -Continue home levothyroxine. -Check TSH. (6) DNR (do not resuscitate) Current Visit: Yes Status: Acute (7) DVT prophylaxis Current Visit: Yes Status: Acute Code(s): Z29.9 - ENCOUNTER FOR PROPHYLACTIC MEASURES, UNSPECIFIED SNOMED Code(s): 751003281 Comment: SubCut Heparin.
[2019-04-03 12:31] LABS: Platelet Count Platelets clumped. 10^3/uL (150-450)
[2019-04-03 12:40] LABS: Troponin I 0.04 ng/mL (<0.04)
[2019-04-03 13:57] LABS: BUN/Creatinine Ratio 45.5 (8-20); Blood Urea Nitrogen 20 mg/dL (6-24); CO2 Carbon Dioxide 30 mmol/L (22-32); Calcium 9.2 mg/dL (8.6-10.3); Chloride 102 mmol/L (101-111); EGFR African American 169.6 (>60); EGFR Non-African American 140.2 (>60); Glucose 161 mg/dL (70-100); Sodium 137 mmol/L (135-145)
[2019-04-03] MEDS: Azithromycin 500 mg/250 ml NS 500 MG/250 ML BAG IVPB SCH (14:09)
[2019-04-03 14:16] LABS: Anion Gap 5 mmol/L (2-11); Troponin I 0.49 ng/mL (<0.04)
--- NOTE | 2019-04-03 20:44 | CONSULT ---
Palliative / Hospice Consult Ordering Provider: Rossy Landis - PCPAdelso Referal Reason: Goals of care and aftercare - Subjective Code Status: DNR Advance Directives Location: No Advance Directives MOLST Part A Completed: Yes - on chart MOLST Part E Completed:: Yes - on chart - History or Present Illness History or Present Illness: 73yo female resident of [facility] presented [place] [facility] after being found on the floor with O2 sat 48%. 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 Pt is an ex smoker, no etoh, with 3 children her daughter Shweta is her HCP [phone]. Studies Echo EF 60-65%, Ekg -sinus tach, CXR-pulm edema/vascular congestion or early interstitial disease, H /H 9.1/29, BUN/Cr 20/.46, egfr 133.2, tprot 6.8 and alb 3.9. All history is from the pt, her daughter and medical record. Pt was admitted with chronic obstructive pulmonary disease exacerbation. Her home was in [place] and has been hospitalized at [place], this is her first hospitalization at [facility] Lab Values: Abnormal Lab Results 04/02/19 04/03/19 04/03/19 06:42 11:30 11:30 WBC 37.9 H 35.8 H RBC 3.04 L 3.12 L Hgb 8.8 L 9.1 L Hct 28 L 29 L MCV 91 92 MCH 29 29 MCHC 32 32 RDW 16 H 16 H Plt Count 469 H D Platelets clumped. H MPV 6.8 L Not Reportable Neut % (Auto) 96.4 96.6 Lymph % (Auto) 1.2 0.8 Campbell % (Auto) 2.2 2.2 Eos % (Auto) 0.0 0.1 Baso % (Auto) 0.2 0.3 Absolute Neuts (auto) 36.5 H 34.6 H Absolute Lymphs (auto) 0.4 L 0.3 L Absolute Monos (auto) 0.8 0.8 Absolute Eos (auto) 0.0 0.0 Absolute Basos (auto) 0.1 0.1 Absolute Nucleated RBC 0.0 0.0 Nucleated RBC % 0.0 0.1 Hem Pathologist Commnt Sodium Potassium Chloride Carbon Dioxide Anion Gap BUN Creatinine Est GFR ( Amer) Est GFR (Non-Af Amer) BUN/Creatinine Ratio Glucose Calcium Troponin I 0.04 H* Vancomycin Trough 13.0 04/03/19 04/03/19 13:08 16:00 WBC RBC Hgb Hct MCV MCH MCHC RDW Plt Count MPV Neut % (Auto) Lymph % (Auto) Campbell % (Auto) Eos % (Auto) Baso % (Auto) Absolute Neuts (auto) Absolute Lymphs (auto) Absolute Monos (auto) Absolute Eos (auto) Absolute Basos (auto) Absolute Nucleated RBC Nucleated RBC % Hem Pathologist Commnt Sodium 137 Potassium TNP 4.0 Chloride 102 Carbon Dioxide 30 Anion Gap 5 BUN 20 Creatinine 0.44 L Est GFR ( Amer) 169.6 Est GFR (Non-Af Amer) 140.2 BUN/Creatinine Ratio 45.5 H Glucose 161 H Calcium 9.2 Troponin I 0.49 H* Vancomycin Trough Laboratory Last Values WBC 35.8 10^3/uL (3.5-10.8) H 04/03/19 11:30 RBC 3.12 10^6 /uL (3.70-4.87) L 04/03/19 11:30 Hgb 9.1 g/dL (12.0-16.0) L 04/03/19 11:30 Hct 29 % (35-47) L 04/03/19 11:30 MCV 92 fL (80-97) 04/03/19 11:30 MCH 29 pg (27-31) 04/03/19 11:30 MCHC 32 g/dL (31-36) 04/03/19 11:30 RDW 16 % (10-15) H 04/03/19 11:30 Plt Count Platelets clumped. 10^3/uL (150-450) H 04/03/19 11:30 MPV Not Reportable 04/03/19 11:30 Neut % (Auto) 96.6 % 04/03/19 11:30 Lymph % (Auto) 0.8 % 04/03/19 11:30 Campbell % (Auto) 2.2 % 04/03/19 11:30 Eos % (Auto) 0.1 % 04/03/19 11:30 Baso % (Auto) 0.3 % 04/03/19 11:30 Absolute Neuts (auto) 34.6 10^3/ul (1.5-7.7) H 04/03/19 11:30 Absolute Lymphs (auto) 0.3 10^3/ul (1.0-4.8) L 04/03/19 11:30 Absolute Monos (auto) 0.8 10^3/ul (0-0.8) 04/03/19 11:30 Absolute Eos (auto) 0.0 10^3/ul (0-0.6) 04/03/19 11:30 Absolute Basos (auto) 0.1 10^3/ul (0-0.2) 04/03/19 11:30 Absolute Nucleated RBC 0.0 10^3/ul 04/03/19 11:30 Nucleated RBC % 0.1 04/03/19 11:30 Hem Pathologist Commnt 04/02/19 06:42 INR (Anticoag Therapy) 0.98 (0.82-1.09) 04/01/19 09:54 APTT 30.3 seconds (26.0-38.0) 04/01/19 09:54 ABG pH 7.36 (7.35-7.45) 04/01/19 09:22 ABG pCO2 64 mmHg (35-45) H 04/01/19 09:22 ABG pO2 75 mmHg (80-100) L 04/01/19 09:22 ABG HCO3 31.4 mmol/L (19-31) H 04/01/19 09:22 ABG O2 Saturation 96.5 % (94.0-98.0) 04/01/19 09:22 ABG Base Excess 8.4 mmol/L (-2.0-2.0) H 04/01/19 09:22 Sodium 137 mmol/L (135-145) 04/03/19 13:08 Potassium 4.0 mmol/L (3.5-5.0) 04/03/19 16:00 Chloride 102 mmol/L (101-111) 04/03/19 13:08 Carbon Dioxide 30 mmol/L (22-32) 04/03/19 13:08 Anion Gap 5 mmol/L (2-11) 04/03/19 13:08 BUN 20 mg/dL (6-24) 04/03/19 13:08 Creatinine 0.44 mg/dL (0.51-0.95) L 04/03/19 13:08 Est GFR ( Amer) 169.6 (>60) 04/03/19 13:08 Est GFR (Non-Af Amer) 140.2 (>60) 04/03/19 13:08 BUN/Creatinine Ratio 45.5 (8-20) H 04/03/19 13:08 Glucose 161 mg/dL (70-100) H 04/03/19 13:08 Lactic Acid 0.8 mmol/L (0.5-2.0) 04/01/19 09:56 Calcium 9.2 mg/dL (8.6-10.3) 04/03/19 13:08 Iron < 20 ug/dL (50-212) L 04/02/19 06:38 TIBC 308 mcg/dL (250-450) 04/02/19 06:38 % Saturation 6 % (15-55) L 04/02/19 06:38 Unsat Iron Binding < 293 ug/dL 04/02/19 06:38 Transferrin 220 mg/dL (203-362) 04/02/19 06:38 Ferritin 200.8 ng/mL (11-307) 04/02/19 06:38 Total Bilirubin 0.40 mg/dL (0.2-1.0) 04/01/19 09:54 AST 19 U/L (13-39) 04/01/19 09:54 ALT 20 U/L (7-52) 04/01/19 09:54 Alkaline Phosphatase 74 U/L (34-104) 04/01/19 09:54 Troponin I 0.49 ng/mL (<0.04) H* 04/03/19 13:08 B-Natriuretic Peptide 57 pg/mL (<=100) 04/01/19 09:55 Total Protein 6.8 g/dL (6.4-8.9) 04/01/19 09:54 Albumin 3.9 g/dL (3.2-5.2) 04/01/19 09:54 Globulin 2.9 g/dL (2-4) 04/01/19 09:54 Albumin/Globulin Ratio 1.3 (1-3) 04/01/19 09:54 Vitamin B12 349 pg/mL (180-914) 04/02/19 06:38 Folate 2.59 ng/mL (>3.99) 04/02/19 06:38 TSH 0.47 mcIU/mL (0.34-5.60) 04/02/19 06:38 Vancomycin Trough 13.0 mcg/mL 04/03/19 11:30 - Objective Active Medications: Albuterol (Ventolin 2.5 Mg/3 Ml Neb.Vandana*) 2.5 mg INH [id number] AWAKE [facility] Azithromycin (Zithromax Tab*) 250 mg PO DAILY [facility] Diltiazem HCl (Cardizem Tab*) 60 mg PO Q8HR [facility] Last Admin: 04/03/19 14:01 Dose: 60 mg Docusate Sodium (Colace Cap*) 100 mg PO BEDTIME [facility] Last Admin: 04/02/19 22:28 Dose: 100 mg Fluoxetine HCl (Prozac Cap*) 60 mg PO DAILY [facility] Last Admin: 04/03/19 08:47 Dose: 60 mg Gabapentin (Neurontin Cap(*)) 400 mg PO TID [facility] Last Admin: 04/03/19 14:02 Dose: 400 mg Heparin Sodium (Porcine) (Heparin Vial(*)) 5,000 units SUBCUT Q8HR [facility] Last Admin: 04/03/19 14:09 Dose: Not Given Cefepime HCl (Maxipime 2 Gm In Dextrose Duplex (*)) 2 gm in 50 mls @ 100 mls/ hr IV Q12H [facility] Last Admin: 04/03/19 17:18 Dose: 100 mls/hr Folic Acid 1 mg/ Sodium (Chloride) 50.2 mls @ 100.4 mls/hr IVPB DAILY [facility] Last Admin: 04/03/19 10:55 Dose: 100.4 mls/hr Lactobacillus Rhamnosus (Lactobacillus Acidophilus*) 1 tab PO BID [facility] Last Admin: 04/03/19 08:46 Dose: 1 tab Levothyroxine Sodium (Synthroid Tab*) 50 mcg PO DAILY@0600 [facility] Last Admin: 04/03/19 06:26 Dose: 50 mcg Lorazepam (Ativan Inj*) 0.5 mg IV PUSH Q6H PRN PRN Reason: ANXIETY Last Admin: 04/03/19 17:17 Dose: 0.5 mg Methylprednisolone Sodium Succinate (Solu-Medrol 40 Mg) 40 mg IV Q8H [facility] Last Admin: 04/03/19 17:18 Dose: 40 mg Miscellaneous (Ativan Pyxis Sandoval) 1 ea N/A .ATIVAN IV SANDOVAL PRN PRN Reason: PYXIS SANDOVAL Mometasone Furoate/Formoterol Fumar (Dulera 200/5 Mdi*) 2 puff INH BID [facility] Last Admin: 04/03/19 07:44 Dose: Not Given Montelukast Sodium (Singulair Tab*) 10 mg PO DAILY [facility] Last Admin: 04/03/19 08:48 Dose: 10 mg Morphine Sulfate (Morphine Oral Concentrate*) 10 mg PO Q2H PRN PRN Reason: air hunger Last Admin: 04/03/19 16:32 Dose: 10 mg Pantoprazole Sodium (Protonix Tab*) 40 mg PO DAILY [facility] Last Admin: 04/03/19 08:46 Dose: 40 mg Potassium Chloride (Klor Con Er Tab*) 20 meq PO DAILY [facility] Last Admin: 04/03/19 08:51 Dose: Not Given Senna (Senokot Tab*) 2 tab PO BEDTIME [facility] Last Admin: 04/02/19 22:29 Dose: 2 tab Vital Signs: Vital Signs: Temp Pulse Resp BP Pulse Ox 97.6 F 94 18 151/62 92 04/03/19 15:15 04/03/19 15:15 04/03/19 19:57 04/03/19 15:15 04/03/19 15:15 Patient Weight: Weight 62.596 kg Intake and Output: Intake & Output 04/01/19 04/02/19 04/03/19 04/04/19 06:59 06:59 06:59 06:59 Intake Total 1462 1750 710 Output Total 225 0 Balance 1462 1525 710 Weight 62.596 kg Intake: IV Fluids 1082 1270 350 ABX - VANCOMYCIN 280 NS (0.9%) 990 350 IVPB 270 ABX - VANCOMYCIN 270 Oral 110 480 360 Output: Urine 225 0 Other: Estimated Stool Amount Small # Voids 1 ADLs: Meal Record Start: 04/01/19 11: 57 Freq: DAILY@0900,1400,1800 Status: Active Protocol: Created 04/01/19 11:57 System (Rec: 04/01/19 11:57 System MED-2) Document 04/01/19 18:00 [id number] (Rec: 04/01/19 22:42 [id number] TELE-C05) Document 04/02/19 09:00 [id number] (Rec: 04/02/19 10:16 [id number] TELE-C01) Document 04/02/19 14:00 [id number] (Rec: 04/02/19 15:32 [id number] TELE-C01) Document 04/02/19 18:00 [id number] (Rec: 04/02/19 18:32 [id number] TELE-M02) Document 04/03/19 09:00 [id number] (Rec: 04/03/19 09:44 [id number] TELE-C01) Document 04/03/19 14:00 [id number] (Rec: 04/03/19 14:56 [id number] TELE-C05) Intake and Output Start: 04/01/19 09: 01 Freq: Status: Active Protocol: Created 04/01/19 09:01 System (Rec: 04/01/19 09:01 System [id number]) Intake and Output Start: 04/01/19 11: 57 Freq: DAILY@0600,1400,2200 Status: Active Protocol: Created 04/01/19 11:57 System (Rec: 04/01/19 11:57 System MED-M22) Document 04/01/19 22:00 [id number] (Rec: 04/01/19 22:43 [id number] TELE-C05) Document 04/02/19 06:00 [id number] (Rec: 04/02/19 06:42 [id number] TELE-C09) Document 04/02/19 08:07 [id number] (Rec: 04/02/19 08:07 [id number] TELE-M07) Document 04/02/19 14:00 [id number] (Rec: 04/02/19 15:32 [id number] TELE-C01) Document 04/02/19 21:54 [id number] (Rec: 04/02/19 21:55 [id number] TELE-C11) Document 04/03/19 05:16 [id number] (Rec: 04/03/19 05:17 [id number] TELE-C11) Document 04/03/19 14:00 [id number] (Rec: 04/03/19 14:56 [id number] TELE-C05) Eyes: No Scleral Icterus, PERRLA Ears/Nose/Mouth/Throat: Mucous Membranes Moist Neck: NL Appearance and Movements; NL JVP Cardiovascular: NL Sounds; No Murmurs; No JVD, RRR Respiratory: - - poor air movement, abdominal breathing Abdominal: - - abd soft, nontender, nondistended Extremities: No Edema, No Clubbing, Cyanosis Neurological: Alert and Oriented x 3, NL Muscle Strength and Tone - Assessment Assessment: 73 yo female resident of [facility] with endstage COPD exacerbation - Plan Consult Plan (MU): Hospice Plan: Long discussion with pt and her daughter Shweta. Pt was on comfort care orders at [facility] but pt got frightened and opted to go to the hospital. She is DNR/ DNI as per her MOLST. Pt is unable to be cared for at home and was getting settled at [facility]. She initially was there under rehab but had been switched over to permanent resident She has 7 cats and a dog, whom her daughter is looking after and trying to find the homes. Pt knows she is dying and is frightened by it but she acknowledges she is suffering when it is so hard to breathe. We discussed hospice, information/brochure were given. Daughter is going to visit the residence and decide if it is a good option. Overall they are happy with [facility]. I explained hospice could come to her at [facility] and help with her symptom management. Recommended chairman emeritus visit. Pt has applied for medicaid. Pt is eligible for hospice with end stage COPD on maximal therapy and dyspnea at rest. KPS 30%, PPS 40% - Time On Unit Date of Evaluation: 04/03/19 Hospice Consult Time in: 14:00 Hospice Consult Time Out: 15:30 Hospice Consult Time Total: 90 > 50% of Time Spend In Counseling or Coordinating Care: Yes
[2019-04-03] MEDS: Senna TAB 8.6 mg* TAB PO SCH (22:23)
[2019-04-03] MEDS: Docusate CAP* 100 MG PO SCH (22:25)
[2019-04-04] MEDS: Albuterol 2.5 MG/3 ML NEB.SOL* (0.083%) INH SCH ×2 (01:51→07:38)
[2019-04-04] MEDS: methylPREDNISolone SOD 40 MG* 1 ML VIAL IV SCH ×2 (02:03→09:51)
[2019-04-04] MEDS: Morphine ORAL CONCENTRATE* 5 MG/0.25 ML ORAL.SYRIN PO PRN ×3 (05:42→15:02)
[2019-04-04] MEDS: Cefepime 2 GM in Dextrose(*) 2 GM/50 ML BAG IV SCH (05:42)
[2019-04-04] MEDS: Levothyroxine TAB* 50 MCG TAB PO SCH (05:46)
[2019-04-04] MEDS: Diltiazem TAB* 60 MG PO SCH ×2 (05:46→13:26)
[2019-04-04 06:55] LABS: Hematocrit 28 % (35-47); Hemoglobin 9.3 g/dL (12.0-16.0); Mean Corpuscular HGB Conc 33 g/dL (31-36); Mean Corpuscular Hemoglobin 30 pg (27-31); Mean Corpuscular Volume 90 fL (80-97); Mean Platelet Volume 7.3 fL (7.4-10.4); Platelet Count 432 10^3/uL (150-450); Red Blood Count 3.11 10^6 /uL (3.70-4.87); Red Cell Distribution Width 16 % (10-15)
[2019-04-04 06:58] LABS: ABS Lymphocytes 0.2 10^3/ul (1.0-4.8); ABS Monocytes 0.4 10^3/ul (0-0.8); ABS Neutrophils 21.3 10^3/ul (1.5-7.7); Eosinophil % 0.1 %
[2019-04-04] MEDS: Heparin VIAL(*) 5000 UNITS/ML VIAL (FIVE THOUSAND) SUBCUT SCH ×2 (07:37→13:29)
[2019-04-04 07:38] LABS: Calcium 9.3 mg/dL (8.6-10.3); Potassium 4.7 mmol/L (3.5-5.0)
[2019-04-04] MEDS: Mometasone/Formoter 200/5 MDI INH SCH (07:39)
[2019-04-04] MEDS ORDERED: Albuterol 2.5 MG/3 ML NEB.SOL* (0.083%) INH PRN (07:41)
[2019-04-04 07:43] LABS: BUN/Creatinine Ratio 41.7 (8-20); EGFR African American 153.4 (>60); EGFR Non-African American 126.8 (>60)
[2019-04-04 08:17] LABS: Troponin I 0.16 ng/mL (<0.04)
[2019-04-04] MEDS ORDERED: Azithromycin TAB* 250 MG PO SCH (09:00)
[2019-04-04] MEDS: Gabapentin CAP(*) 400 MG PO SCH ×2 (09:51→13:26)
[2019-04-04] MEDS: FLUoxetine CAP* 20 MG PO SCH (09:52)
[2019-04-04] MEDS: Lactobacillus Acidophilus* 1 TAB PO SCH (09:52)
[2019-04-04] MEDS: Pantoprazole TAB * 40 MG TAB PO SCH (09:52)
[2019-04-04] MEDS: Potassium Chlor TAB* 20 MEQ TAB.ER PO SCH (09:54)
[2019-04-04] MEDS: Folic Acid IV* 1 MG in NS 0.9% 50 ML* 50 ML IVPB SCH (11:57)
[2019-04-04] MEDS ORDERED: Folic Acid TAB* 1 MG PO SCH (12:00)
[2019-04-04] MEDS: Montelukast Sodium TAB* 10 MG PO SCH (12:11)
[2019-04-04] MEDS ORDERED: LORazepam TAB(*) 0.5 MG PO PRN (12:31)
[2019-04-04 12:38] LABS: Urine Appearance Clear; Urine Bilirubin Negative (Negative); Urine Blood Negative (Negative); Urine Color Yellow; Urine Glucose Negative (Negative); Urine Ketones Negative (Negative); Urine Nitrite Negative (Negative); Urine Protein Negative (Negative); Urine Specific Gravity 1.012 (1.010-1.030); Urine Urobilinogen Negative (Negative)
[2019-04-04 15:58] LABS: Tissue Transglutaminase IgA Ab <1.2 U/mL
[2019-04-04] MEDS ORDERED: Cefdinir cap* 300 MG CAP PO SCH ×2 (16:30→17:00)
--- NOTE | 2019-04-04 17:18 | DS ---
DISCHARGE SUMMARY: ADDENDUM: In addition to previously mentioned prescriptions, the patient may be of benefit for receiving folic acid 1 mg p.o. daily given low folic acid found during her hospital stay in the setting of her anemia. DEVEN BEE [id number]/[facility] #: [id number] LAURA
--- NOTE | 2019-04-04 17:18 | DS ---
DISCHARGE SUMMARY: DATE OF ADMISSION: 04/01/19 DATE OF DISCHARGE: 04/04/19 PROVIDER: DEVEN King. ATTENDING PHYSICIAN WHILE IN THE HOSPITAL: Dr. Rama Coffey * (dictated by DEVEN King). PRIMARY CARE PROVIDER: Physician at [facility]. PRIMARY DIAGNOSES: 1. Brkwu-ue-fupbgym hypoxic respiratory failure, likely exacerbated by pneumonia or acute bronchitis. 2. Type 2 [id number] myocardial infarction. SECONDARY DIAGNOSES: 1. Chronic obstructive pulmonary disease with chronic hypoxic respiratory failure, on 4 L of O2 continuously. 2. Baseline tachycardia. PERTINENT STUDIES WHILE IN THE HOSPITAL: Transthoracic echocardiogram on : Ejection fraction of 60% to 65%. Normal wall motion of the left ventricle. PERTINENT LAB DATA: Troponin 0.16 on 04/04/19. HISTORY OF PRESENT ILLNESS/HOSPITAL COURSE: Carole Barbosa is a 73-year-old white female with past medical history significant for tachycardia and COPD, on 4 L of oxygen, who presented to the emergency department via [facility], where she is a long- term resident, with confusion and shortness of breath. She was reportedly cyanotic and with oxygen saturation to 48% at [facility]. Please see admitting H and P dictated by Dr. Anabell Matamoros from 04/01/19 for further details. During her hospital stay, she was at her baseline level of oxygen requirement, but did continue to have obvious shortness of breath. She was provided with IV antibiotics of azithromycin and cefepime to cover for possible pneumonia or acute bronchitis. She did have a significant leukocytosis at admission; however, she was afebrile during the entirety of her hospital stay. Her leukocytosis did begin to downtrend by the date of discharge to 22,000. She continued to have good saturations on her normal 4 L of oxygen. She was increasingly short of breath at rest at times, which was relieved with morphine. The patient was already receiving every 4 hours oral morphine at [facility] and I increased the frequency to every 2 hours; however, it appears that the patient never required this every 2 hours. She also received Solu- Medrol during her hospital stay for this exacerbation of her COPD. During her hospital stay, the patient was seen by palliative care physician, Dr. Bello, and was agreeable to hospice services. She was interested in potentially going to the hospice residence; however, there was no bed available and was therefore agreeable to returning to [facility] to receive hospice care there. During her hospital stay, it was evident that the patient did have an ischemic demand. Her troponin was elevated, but there were no EKG changes and no symptoms and her echo showed no wall motion findings, which is consistent with a type 2 NSTEMI. On the day of discharge, the patient feels that her breathing is better than the day before. She does have shortness of breath with mild exertion, but maintains good saturations and is relieved by oral morphine. Denies chest pain, difficulty breathing at rest, abdominal pain, neck pain, jaw pain. PHYSICAL EXAMINATION: General: An elderly white female, lying in hospital bed , appearing in no acute distress. Breathing was pursed-lipped at times, not using accessory muscles. Eyes: PERRL. Sclerae anicteric. ENT: Mucous membranes moist. Lungs: Diminished breath sounds throughout. Cardio: Regular rate and rhythm without murmurs, rubs, or gallops. Abdomen: Abdomen is soft, nontender, nondistended. Extremities: No cyanosis, clubbing, or edema. Neuro: The patient is alert and oriented x3. No focal deficits. Psych : The patient is pleasant and cooperative. DISCHARGE PLAN: Diet: The patient may return to normal unrestricted diet. Activity: The patient may return to normal activity as tolerated with the use of oxygen. The patient is going to be returning to [facility], where she is a long-term resident, and hospice will be signing on with the patient there. She is to continue treatment for possible pneumonia with her antibiotics and she is to continue a taper of prednisone. She is going to return to her normal home medications, but we will increase her morphine frequency to every 2 hours instead of every 4 hours and additionally, Ativan should be utilized in the meantime until hospice can come evaluate the patient. Folic acid as been added as well to treat anemia. The patient should determine with hospice at the time of sign on whether she would like to change her MOLST if she decides she does not want to be hospitalized in the future. The patient is unsure of this at this time and that should be discussed. DISCHARGE MEDICATIONS: Continued Home Medications: 1. Omeprazole 20 mg p.o. daily. 2. Senna 2 tabs p.o. at bedtime. 3. Potassium chloride 20 mEq p.o. daily. 4. Singulair 10 mg p.o. daily. 5. Ativan 0.5 mg p.o. p.r.n. for anxiety. 6. Fluoxetine 60 mg p.o. daily. 7. Albuterol nebulized solution 2.5 mg inhaled q.4 hours p.r.n. for shortness of breath/wheezing. 8. Diltiazem 300 mg p.o. b.i.d. 9. Incruse Ellipta 1 puff inhaled daily. 10. Synthroid 50 mcg p.o. daily. 11. Gabapentin 400 mg p.o. t.i.d. 12. Breo Ellipta 1 inhalation daily. 13. Folic acid 1 mg po daily New Medications: 1. Morphine concentrate oral solution 10 mg p.o. q.2 hours p.r.n. for shortness of breath or pain. 2. Prednisone 50 mg x2 days, 40 mg x2 days, 30 mg x2 days, 20 mg x2 days, 10 mg x2 days, then discontinue. 3. Azithromycin 250 mg p.o. x1 dose on 04/05/19, which can then be discontinued. 4. Cefdinir 300 mg p.o. b.i.d., which can be discontinued after administration on 04/10/19. DISPOSITION: To [facility] to receive hospice care. CONDITION ON DISCHARGE: Fair. TIME SPENT: Approximately 45 minutes were spent on this discharge; approximately half this time was spent at bedside. [id number]/[facility]PS #: [id number]/CPS #: [id number] LAURA
[2019-04-04 17:22] VITALS: BP 151/72
[2019-04-04 17:39] LABS: Tissue Transglutaminase IgG Ab <1.2 U/mL
== END 2019-04-04 18:40 | DRG 189 ==
LOC: ED 08:54 → MEDTELE 11:24 → UNDOADMIN 11:24 → MED 11:24
PROVIDERS: ADMIT Hospitalist; ATTEND Internal Medicine
DX: J96.21 Acute and chronic respiratory failure with hypoxia (principal); I21.A1 Myocardial infarction type 2; J44.1 Chronic obstructive pulmonary disease with (acute) exacerbation; J44.0 Chronic obstructive pulmonary disease with (acute) lower respiratory infection; I10 Essential (primary) hypertension; Z66 Do not resuscitate; E03.9 Hypothyroidism, unspecified; R63.0 Anorexia; F41.9 Anxiety disorder, unspecified; D64.9 Anemia, unspecified; J20.9 Acute bronchitis, unspecified; R00.0 Tachycardia, unspecified; D47.3 Essential (hemorrhagic) thrombocythemia; F32.9 Major depressive disorder, single episode, unspecified; Z87.891 Personal history of nicotine dependence; Z68.22 Body mass index [BMI] 22.0-22.9, adult; Z82.49 Family history of ischemic heart disease and other diseases of the circulatory system; Z88.2 Allergy status to sulfonamides; Z91.040 Latex allergy status; Z80.0 Family history of malignant neoplasm of digestive organs; Z82.3 Family history of stroke
CPT/HCPCS: 36415; 71045; 80048; 80053; 80202; 81003; 82607; 82728; 82746; 82803; 83516; 83540; 83550; 83605; 83880; 84443; 84484; 85025; 85060; 85610; 85730; 86256; 87040; 87641; 93005; 93306; 94640; 94660; 99284; A9270-GY; J0456; J0692; J1644; J2060; J2405; J2543; J2916; J2920; J2930; J3370; J3420

== ENCOUNTER 2019-05-07 11:18 | Inpatient (IN) | payer MEDICARE, MEDICAID ==
--- NOTE | 2019-05-07 11:34 | ED ---
Adult Trauma - HPI Summary HPI Summary: This pt is a 73 y/o female presenting to [facility] via EMS from [facility] for right hip pain s/p fall today. Pt reports at 0800 today she got up from her bed to grab Febreze from across the room. She notes as she was walking she fell directly on her right hip. Denies head strike or LOC. Staff were able to put the patient back to her bed but has been complaining of right hip pain. Pain is 10/10 sharp, aggravated with movement. Denies back pain, left hip pain, leg pain. Pt was given Aleve and morphine today. Pt has hx of COPD and wears 4L of O2 at home at baseline. She does not have an inhaler that she uses regularly. Pt c/o SOB while in the ED but states this is chronic. Pt is on comfort care for COPD and receives morphine. - History of Current Complaint Stated Complaint: RIGHT HIP PAIN PER EMS Time Seen by Provider: 05/07/19 11:21 Hx Obtained From: Patient Mechanism of Injury: Fall Ambulatory at the Scene: Yes Loss of Consciousness: no loss of consciousness Onset/Duration: Started Hours Ago, Traumatic, Still Present Onset of Pain: Hours Current Severity: Severe Pain Intensity: 10 Pain Scale Used: 0-10 Numeric Location: Other - Right hip Aggravating Factor(s): Movement Alleviating Factor(s): Nothing Associated Signs & Symptoms: Positive: SOB - chronic. Negative: Fever, Nausea/ Vomiting, Loss of Consciousness Related History: Other: - s/p fall today - Additional Pertinent History Primary Care Physician: [facility] - Allergy/Home Medications Allergies/Adverse Reactions: Allergies Allergy/AdvReac Type Severity Reaction Status Date / Time latex Allergy Unknown Verified 05/07/19 11:28 Reaction Details Sulfa (Sulfonamide Allergy Unknown Verified 05/07/19 11:28 Antibiotics) Reaction Details PMH/Surg Hx/FS Hx/Imm Hx Endocrine/Hematology History: Reports: Hx Thyroid Disease Respiratory History: Reports: Hx Chronic Obstructive Pulmonary Disease (COPD) Sensory History: Reports: Hx Contacts or Glasses Denies: Hx Hearing Aid Opthamlomology History: Reports: Hx Contacts or Glasses Psychiatric History: Reports: Hx Anxiety, Hx Depression Infectious Disease History: Denies: Traveled Outside the [place] in Last 30 Days - Family History Known Family History: Negative: Seizure Disorder - Social History Alcohol Use: None Hx Substance Use: No Substance Use Type: Reports: None Hx Tobacco Use: Yes Smoking Status (MU): Former Smoker Type: Cigarettes Length of Time of Smoking/Using Tobacco: 50 years 2 packs per day Have You Smoked in the Last Year: No Review of Systems Negative: Fever, Chills Positive: Shortness Of Breath Musculoskeletal: Other - POSITIVE: right hip pain Negative: Other - NEGATIVE: back pain, left hip pain, leg pain All Other Systems Reviewed And Are Negative: Yes Physical Exam - Summary Physical Exam Summary: Constitutional: Chronically ill appearing HENT: Normocephalic. Atraumatic, No abrasions/contusions, Midface stable, No dental trauma, No trismus Eyes: EOM normal, PERRL Neck: Trachea midline, No stridor, No cervical step off, No posterior cervical spine tenderness Cardio: Rhythm regular, rate normal, Heart sounds normal, Radial pulses are 2+ and symmetric. Pulmonary/Chest wall: Increased work of breathing. Diffuse expiratory wheezing. Accessory muscle use. Abd: Soft, Appearance normal. (-) Distension, (-) Tenderness. Musculoskeletal: Tenderness to the right lateral proximal femur. No knee/tib fib tenderness. 2+ DP pulse Neuro: Alert,GCS 15. Strength R 5/5 foot/ankle unable to SLR 2/2 pain. Skin: Warm, Dry, Skin intact Triage Information Reviewed: Yes Vital Signs Reviewed: Yes Diagnostics - Laboratory Result Diagrams: 05/07/19 12:13 05/07/19 12:13 Lab Statement: Any lab studies that have been ordered have been reviewed, and results considered in the medical decision making process. - Radiology Right femur XR Radiology Interpretation Completed By: Radiologist Summary of Radiographic Findings: IMPRESSION: No fracture of the right femur or hip is noted. Dr. Art has reviewed this report. Right hip and pelvis XR Radiology Interpretation Completed By: Radiologist Summary of Radiographic Findings: IMPRESSION: Likely impacted fracture through the neck of the right femur. Dr. Art has reviewed this report. chest XR Radiology Interpretation Completed By: Radiologist Summary of Radiographic Findings: IMPRESSION: Likely chronic interstitial disease, no active cardiopulmonary disease is noted. Dr. Art has reviewed this report. Re-Evaluation - Re-Evaluation First Eval Comment: Wet read of x-ray shows a femoral neck fracture we'll consult orthopedics. Family updated of plan. Given comorbidities patient may be poor surgical candidate but family still interested in surgery if an option. Adult Trauma Course/Dx - Course Course Of Treatment: 73 y/o F w end stage COPD p/w R hip/leg pain after fall. - Physical exam with tenderness to the right proximal femur, concern for femur fracture will check plain films. Vital signs notable for tachycardia and low 100s, SPO2 94% on 5 L. - Give 1 DuoNeb and check a chest x-ray as well - Diagnoses Provider Diagnoses: Fracture of femoral neck, right - Physician Notifications Discussed Care Of Patient With: Dennise Isaacs Time Discussed With Above Provider: 11:59 Instructed by Provider To: Other - Discussed with Dr. Isaacs, orthopedist, who will come see the pt for possible surgery and recommends admission to medicine. [12:02] Discussed with Dr. Matamoros, hospitalist, who accepted the pt for admission. Discharge ED - Sign-Out/Discharge Documenting (check all that apply): Patient [place]art[place] [facility] [place] Received Moderate/Deep Sedation with Procedure: No - Discharge Plan Condition: Stable Disposition: ADMITTED TO [facility] Referrals: Chandu Sorensen MD [Primary Care Provider] - - Billing Disposition and Condition Condition: STABLE Disposition: Admitted to [facility] - Attestation Statements Document Initiated by Anthony: Yes Documenting Scribe: Alejandra Solorzano Provider For Whom Anthony is Documenting (Include Credential): Renu Art MD Scribe Attestation: Alejandra Carter, scribed for Renu Art MD on 05/07/19 at 1325. Scribe Documentation Reviewed: Yes Provider Attestation: The documentation as recorded by the Alejandra morton accurately reflects the service I personally performed and the decisions made by me, Renu Art MD Status of Scribe Document: Viewed
[2019-05-07] MEDS ORDERED: Albuterol/Ipratropium NEB.SOL* Albuterol 2.5 MG/Ipratropium 0.5 MG 3 ML INH ONE (11:37)
[2019-05-07 12:22] LABS: ABS Basophils 0.1 10^3/ul (0-0.2); ABS Lymphocytes 0.6 10^3/ul (1.0-4.8); ABS Monocytes 1.2 10^3/ul (0-0.8); ABS Neutrophils 17.1 10^3/ul (1.5-7.7); Eosinophil % 0.1 %; Hematocrit 33 % (35-47); Hemoglobin 10.7 g/dL (12.0-16.0); Lymphocyte % 2.9 %; Mean Corpuscular HGB Conc 32 g/dL (31-36); Mean Corpuscular Hemoglobin 29 pg (27-31); Mean Corpuscular Volume 89 fL (80-97); Mean Platelet Volume 6.9 fL (7.4-10.4); Platelet Count 398 10^3/uL (150-450); Red Cell Distribution Width 16 % (10-15)
[2019-05-07 12:40] LABS: Albumin 3.8 g/dL (3.2-5.2); Albumin/Globulin Ratio 1.5 (1-3); BUN/Creatinine Ratio 33.9 (8-20); Calcium 9.4 mg/dL (8.6-10.3); EGFR African American 120.9 (>60); EGFR Non-African American 99.9 (>60); Globulin 2.6 g/dL (2-4); Potassium 3.6 mmol/L (3.5-5.0); Total Bilirubin 0.3 mg/dL (0.2-1.0); Total Protein 6.4 g/dL (6.4-8.9)
[2019-05-07] MEDS ORDERED: Ondansetron INJ* 2 MG/ML VIAL IV PRN (13:31)
--- NOTE | 2019-05-07 14:54 | CONS ---
ORTHOPEDIC CONSULTATION NOTE IN EMERGENCY ROOM: DATE OF CONSULT: 05/07/19 DICTATED BY: Dennise Isaacs MD ATTENDING SURGEON: Dennise Isaacs MD CHIEF COMPLAINT: Right hip pain. HISTORY OF PRESENT ILLNESS: Ms. Barbosa is a 73-year-old resident of [facility], who had a fall while ambulating without her required rolling walker earlier today. She fell onto the right side. She immediately had 8/10 pain in the right hip. Any attempt to stand or walk increased her pain. She was brought to [facility] and found to have a valgus-impacted right femoral neck fracture. I am consulted for orthopedic fracture care. PAST MEDICAL HISTORY: End-stage COPD, on comfort care. PAST SURGICAL HISTORY: None. HOME MEDICATIONS: 1. Albuterol 2.5 inhaled q.6 hours. 2. Zithromax 250 mg p.o. daily. 3. Cardizem 60 mg p.o. q.8 hours. 4. Docusate 100 mg p.o. q.h.s. 5. Prozac 60 mg p.o. daily. 6. Gabapentin 400 mg p.o. t.i.d. 7. Heparin 5000 units subcu q.8 hours. 8. Morphine 10 mg p.o. q.2 hours p.r.n. pain. 9. Protonix 40 mg p.o. daily. 10. Klor-Con 20 mEq p.o. daily. 11. Senna 2 tabs p.o. q.h.s. 12. Singulair 10 mg p.o. daily. ALLERGIES: SULFA, LATEX. FAMILY HISTORY: Negative. SOCIAL HISTORY: The patient lives at [facility]. Former smoker, 50-pack years, 2 packs per day. No alcohol or recreational drugs. Normally ambulates with a rolling walker, is a minimal ambulator. REVIEW OF SYSTEMS: Fourteen systems reviewed with the patient, positive for recent fall, positive for shortness of breath, right hip pain. Negative for fevers, chills, chest pain, nausea, vomiting, headache, or dizziness. Otherwise , the patient reports review of systems is negative or not relevant. PHYSICAL EXAM: Vitals: Temperature 98.3, pulse of 110, blood pressure 158/98, O2 saturation 93% on 5 L, respiratory rate 24. General: The patient is a thin , cachectic female, alert and oriented x3, daughter is at the bedside. Slightly angry mood and inappropriate affect. Gait not assessed. HEENT: Atraumatic, normocephalic. Pupils equal and reactive to light. Neck: Trachea midline. No palpable adenopathy. Heart: S1, S2. Lungs: Significant wheezing in all lung barr. Mild accessory muscle use. Abdomen: Soft, nontender, nondistended. Bowel sounds in 4 quadrants. Bilateral Upper Extremities: Skin is intact. She can elevate at the shoulders to 110 degrees. 2+ palpable radial pulses. Right Lower Extremity: The patient's skin is intact. No abrasions or open wounds. She demonstrates dorsiflexion, plantarflexion. Any movement of the hip causes pain. Full sensation to light touch in all nerve distributions and 2+ palpable DP pulse. Left Lower Extremity : The patient's skin is intact. No abrasions or open wounds. No palpable masses or lymph nodes. Hip flexion to 90 degrees. Distally neurovascularly intact. DIAGNOSTIC STUDIES/LAB DATA: Laboratory values show white blood cell of 19, hematocrit 33, platelets 398. INR 1. Sodium 139, potassium 3.6, BUN and creatinine 20 and 0.59, chloride 99, carbon dioxide 35. Protein 6.4. Radiographs: Chest x-ray per Radiology report shows chronic interstitial disease, no active cardiopulmonary disease. Femur and hip films show a valgus- impacted femoral neck fracture with minimal displacement. ASSESSMENT AND PLAN: Ms. Barbosa is a 73-year-old female on comfort care for end - stage chronic obstructive pulmonary disease. She had a fall on [facility], where she is a resident, sustaining a minimally displaced closed right femoral neck fracture. The patient, her daughter, and I discussed the operative and nonoperative treatment options. They understand nonoperative treatment would involve bedrest and minimal ability to walk now or possibly ever. Operative care would involve cannulated screw fixation if the fracture does not displace versus hemiarthroplasty if the fracture does displace. We discussed the risks and benefits of surgery and nonoperative care. I do believe she should be high risk for surgery. The hospitalist group and pulmonary group will see the patient and asses her further for surgical risks. If she is deemed to be a surgical candidate at high risk, I am willing to perform cannulated screws tomorrow on 05/08/19 in the afternoon. She should be clear liquids for breakfast, n.p.o. after breakfast. She should be nonweightbearing. I would recommend a urinalysis due to her elevated white blood cells, although this could be reactive. For now, she will have respiratory treatments. I would recommend a Tucker catheter since she will be on bedrest. I will follow up in the morning to see about her decision regarding surgery. Of course, I respect her decision if she decides on nonoperative care, although my best medical recommendation is surgical intervention and I made this clear to the patient and her family. [id number]/[facility] #: [id number] LAURA
[2019-05-07] MEDS: Morphine 4 MG/ML VIAL (1 ml) 4 MG/ML VIAL IV PRN ×3 (15:20→23:27)
[2019-05-07] MEDS: Heparin VIAL(*) 5000 UNITS/ML VIAL (FIVE THOUSAND) SUBCUT SCH ×3 (15:20→21:35)
[2019-05-07] MEDS: NS 0.9% 1000 ML** 1,000 ML IV SCH (15:46)
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
[2019-05-07] MEDS ORDERED: LORazepam TAB(*) 0.5 MG PO PRN (18:24)
[2019-05-07] MEDS ORDERED: Albuterol 2.5 MG/3 ML NEB.SOL* (0.083%) INH PRN (18:24)
[2019-05-07] MEDS ORDERED: Senna/Docusate (NF) TAB PO SCH (21:00)
[2019-05-07] MEDS ORDERED: Docusate CAP* 100 MG PO SCH (21:00)
[2019-05-07] MEDS: Diltiazem TAB* 30 MG PO SCH (21:34)
[2019-05-07] MEDS: Gabapentin CAP(*) 400 MG PO SCH (21:34)
[2019-05-07] MEDS: Senna TAB 8.6 mg* TAB PO SCH (21:35)
[2019-05-07] MEDS ORDERED: fentaNYL* 50 MCG/ML 2 ML VIAL (100 MCG VIAL) IV SLOW PU ONE (23:00)
[2019-05-07 23:14] LABS: Urine Appearance Cloudy; Urine Bacteria Absent (Absent); Urine Bilirubin Negative (Negative); Urine Blood 2+ (Negative); Urine Color Yellow; Urine Glucose Negative (Negative); Urine Ketones Negative (Negative); Urine Nitrite Negative (Negative); Urine Protein 2+(100 mg/dL) (Negative); Urine Red Blood Cell 3+(>10/hpf) (Absent); Urine Specific Gravity 1.026 (1.010-1.030); Urine Urobilinogen Negative (Negative); Urine White Blood Cell Absent (Absent)
[2019-05-08] MEDS ORDERED: fentaNYL* 50 MCG/ML 2 ML VIAL (100 MCG VIAL) IV SLOW PU ONE (02:30)
[2019-05-08] MEDS: NS 0.9% 1000 ML** 1,000 ML IV SCH ×2 (05:05→17:46)
[2019-05-08] MEDS: Morphine 4 MG/ML VIAL (1 ml) 4 MG/ML VIAL IV PRN ×4 (05:19→22:08)
[2019-05-08] MEDS: Levothyroxine TAB* 50 MCG TAB PO SCH (05:19)
[2019-05-08 05:42] LABS: ABS Basophils 0.1 10^3/ul (0-0.2); ABS Eosinophils 0.1 10^3/ul (0-0.6); ABS Lymphocytes 0.8 10^3/ul (1.0-4.8); ABS Monocytes 1.3 10^3/ul (0-0.8); ABS Neutrophils 15.5 10^3/ul (1.5-7.7); Eosinophil % 0.4 %; Hematocrit 32 % (35-47); Hemoglobin 10.4 g/dL (12.0-16.0); Lymphocyte % 4.5 %; Mean Corpuscular HGB Conc 33 g/dL (31-36); Mean Corpuscular Hemoglobin 29 pg (27-31); Mean Corpuscular Volume 89 fL (80-97); Mean Platelet Volume 7.3 fL (7.4-10.4); Platelet Count 363 10^3/uL (150-450); Red Blood Count 3.55 10^6 /uL (3.70-4.87); Red Cell Distribution Width 16 % (10-15); White Blood Count 17.7 10^3/uL (3.5-10.8)
[2019-05-08 05:48] LABS: Calcium 9.1 mg/dL (8.6-10.3); EGFR African American 131.1 (>60); EGFR Non-African American 108.3 (>60); Potassium 4.2 mmol/L (3.5-5.0)
[2019-05-08] MEDS ORDERED: Lorazepam PYXIS KEY PRN ×2 (08:27→16:04)
[2019-05-08] MEDS ORDERED: Montelukast Sodium TAB* 10 MG PO SCH (09:00)
[2019-05-08] MEDS: FLUoxetine CAP* 20 MG PO SCH (09:08)
[2019-05-08] MEDS: predniSONE TAB* 10 MG PO SCH (09:08)
[2019-05-08] MEDS: Folic Acid TAB* 1 MG PO SCH (09:08)
[2019-05-08] MEDS: Gabapentin CAP(*) 400 MG PO SCH ×3 (09:08→21:36)
[2019-05-08] MEDS: Pantoprazole TAB * 40 MG TAB PO SCH (09:08)
[2019-05-08] MEDS: Diltiazem TAB* 30 MG PO SCH ×2 (09:08→21:36)
[2019-05-08] MEDS: Mometasone/Formoter 200/5 MDI INH SCH (09:29)
[2019-05-08] MEDS: SPIRIVA Respimat* (tiotropium) 2.5 mcg/inh Inhaler INH SCH (09:30)
--- NOTE | 2019-05-08 10:15 | PN ---
Progress Note - Progress Note Date of Service: 05/08/19 SOAP: Subjective: []Pt seen at bedside. She is comfortable at rest, no pain in the right hip currently. Denies CP, nausea, dizziness. She has end stage COPD and is chronically SOB. Objective: []Gen: Appears well, NAD RLE: skin envelope intact, tender to palpation over the right hip, RLE is otherwise nontender. f/e ankle and MTPs intact without pain. Sensation intact to light touch distally. LLE: skin envelope intact. nontender to palpation. f/e hip, knee, ankle, MTPs intact without pain. BL Calves are supple and nontender without erythema, edema or palpable cords BL upper extremities skin envelope intact, nontender to palpation. F/E at digits , wrist, elbow, shoulder nonpainful. Assessment: [Right femoral neck fracture Plan: []NWB RLE NPO and hold chemical DVT prophy for today for possible OR Needs pulm consult which has been placed If optimized from pulm standpoint, possible patient would go to the OR today for R hip cannulated screws today. Vital Signs Temp 98.6 F 05/08/19 11:10 Pulse 96 05/08/19 11:10 Resp 19 05/08/19 11:10 BP 145/65 05/08/19 11:10 Pulse Ox 93 05/08/19 11:10 Intake & Output 05/07/19 05/08/19 05/08/19 18:59 06:59 18:59 Intake Total 979 Output Total 320 Balance 659 Weight 135 lb Intake: IV Fluids 979 NS (0.9%) 979 Output: Tucker 320 Laboratory Last Values WBC 17.7 10^3/uL (3.5-10.8) H 05/08/19 05:19 RBC 3.55 10^6 /uL (3.70-4.87) L 05/08/19 05:19 Hgb 10.4 g/dL (12.0-16.0) L 05/08/19 05:19 Hct 32 % (35-47) L 05/08/19 05:19 MCV 89 fL (80-97) 05/08/19 05:19 MCH 29 pg (27-31) 05/08/19 05:19 MCHC 33 g/dL (31-36) 05/08/19 05:19 RDW 16 % (10-15) H 05/08/19 05:19 Plt Count 363 10^3/uL (150-450) 05/08/19 05:19 MPV 7.3 fL (7.4-10.4) L 05/08/19 05:19 Neut % (Auto) 87.3 % 05/08/19 05:19 Lymph % (Auto) 4.5 % 05/08/19 05:19 [place] % (Auto) 7.3 % 05/08/19 05:19 Eos % (Auto) 0.4 % 05/08/19 05:19 Baso % (Auto) 0.5 % 05/08/19 05:19 Absolute Neuts (auto) 15.5 10^3/ul (1.5-7.7) H 05/08/19 05:19 Absolute Lymphs (auto) 0.8 10^3/ul (1.0-4.8) L 05/08/19 05:19 Absolute Monos (auto) 1.3 10^3/ul (0-0.8) H 05/08/19 05:19 Absolute Eos (auto) 0.1 10^3/ul (0-0.6) 05/08/19 05:19 Absolute Basos (auto) 0.1 10^3/ul (0-0.2) 05/08/19 05:19 Absolute Nucleated RBC 0.0 10^3/ul 05/08/19 05:19 Nucleated RBC % 0.0 05/08/19 05:19 INR (Anticoag Therapy) 1.00 (0.82-1.09) 05/07/19 12:13 Sodium 138 mmol/L (135-145) 05/08/19 05:19 Potassium 4.2 mmol/L (3.5-5.0) 05/08/19 05:19 Chloride 101 mmol/L (101-111) 05/08/19 05:19 Carbon Dioxide 33 mmol/L (22-32) H 05/08/19 05:19 Anion Gap 4 mmol/L (2-11) 05/08/19 05:19 BUN 22 mg/dL (6-24) 05/08/19 05:19 Creatinine 0.55 mg/dL (0.51-0.95) 05/08/19 05:19 Est GFR ( Amer) 131.1 (>60) 05/08/19 05:19 Est GFR (Non-Af Amer) 108.3 (>60) 05/08/19 05:19 BUN/Creatinine Ratio 40.0 (8-20) H 05/08/19 05:19 Glucose 111 mg/dL (70-100) H 05/08/19 05:19 Calcium 9.1 mg/dL (8.6-10.3) 05/08/19 05:19 Total Bilirubin 0.30 mg/dL (0.2-1.0) 05/07/19 12:13 AST 22 U/L (13-39) 05/07/19 12:13 ALT 30 U/L (7-52) 05/07/19 12:13 Alkaline Phosphatase 74 U/L (34-104) 05/07/19 12:13 Total Protein 6.4 g/dL (6.4-8.9) 05/07/19 12:13 Albumin 3.8 g/dL (3.2-5.2) 05/07/19 12:13 Globulin 2.6 g/dL (2-4) 05/07/19 12:13 Albumin/Globulin Ratio 1.5 (1-3) 05/07/19 12:13 Urine Color Yellow 05/07/19 22:53 Urine Appearance Cloudy 05/07/19 22:53 Urine pH 5.0 (5-9) 05/07/19 22:53 Ur Specific [place] 1.026 (1.010-1.030) 05/07/19 22:53 Urine Protein 2+(100 mg/dl) (Negative) A 05/07/19 22:53 Urine Ketones Negative (Negative) 05/07/19 22:53 Urine Blood 2+ (Negative) A 05/07/19 22:53 Urine Nitrate Negative (Negative) 05/07/19 22:53 Urine Bilirubin Negative (Negative) 05/07/19 22:53 Urine Urobilinogen Negative (Negative) 05/07/19 22:53 Ur Leukocyte Esterase Negative (Negative) 05/07/19 22:53 Urine WBC (Auto) Absent (Absent) 05/07/19 22:53 Urine RBC (Auto) 3+(>10/hpf) (Absent) A 05/07/19 22:53 Urine Bacteria Absent (Absent) 05/07/19 22:53 Urine Glucose Negative (Negative) 05/07/19 22:53 Blood Type A Positive 05/07/19 12:13 Antibody Screen Negative 05/07/19 12:13
[2019-05-08] MEDS: LORazepam INJ* 2 MG/ML 1 ML VIAL IV PUSH PRN (12:59)
--- NOTE | 2019-05-08 13:17 | PN ---
Progress Note - Progress Note Date of Service: 05/08/19 - Pulm consult Note: Pt seen and examined at bedside. Please refer to detail consult reprot that was dictated Pt to have surgery that is considered to be low risk. Would advise against GA. She has severe COPD and chronic hypoxic and possibly hypercapnic resp failure. Her O2 requirement has not increased from her baseline. She is tachypneic likely from anxiety with contribution from underlying severe COPD I donot think waiting longer would minimize her risk and might only increase the change for complications that could result from immobility. She is at high risk for pulmonary complications however benefits outweigh risks and I would recommend continuing with surgical procedure as planned today. Continue with bronchodilators, low dose prednisone, incentive spirometry, DVT px and early mobilization. I have discussed in detail with pt and her daughter at bedside in length. I have also discussed with Dr Martinez and Martha Cardenas
--- NOTE | 2019-05-08 14:00 | CONS ---
PULMONARY CONSULTATION REPORT: DATE OF CONSULT: 05/08/19 CONSULTATION REQUESTED BY: Alejandra Martinez MD, DEVEN Schumacher REASON FOR CONSULT: Pulmonary consultation for preop pulmonary clearance. HISTORY OF PRESENT ILLNESS: The patient is a 73-year-old female with history of end-stage COPD; chronic hypoxemia, on 4 L oxygen at baseline. The patient was brought in for evaluation of a fall and was found to have right hip fracture. She is awaiting surgery today. The patient was seen and examined at bedside. The patient is hyperventilating at baseline. She has mild expiratory wheeze on auscultation. No cough or sputum production. Denies recent colds. She is at her baseline O2 requirement , which is 2 L per minute. PAST MEDICAL HISTORY: 1. End-stage COPD with hypoxemic respiratory failure, on 4 L. 2. Tachycardia. 3. History of breast cancer. PAST SURGICAL HISTORY: D and C, left foot surgery, left breast surgery. MEDICATIONS: 1. Omeprazole. 2. Senna. 3. Potassium. 4. Singulair. 5. Ativan. 6. Fluoxetine. 7. Albuterol. 8. Diltiazem. 9. Incruse. 10. Synthroid. 11. Gabapentin. 12. Breo. 13. Folic acid. 14. Morphine 10 mg p.o. q.2 hours for shortness of breath. ALLERGIES: SULFA. FAMILY HISTORY: Mom at the age of 73 of liver cancer. Dad at age 65 with DE and CVA. SOCIAL HISTORY: Former smoker, quit 12 years ago, smoked 2 packs per day for 50 years prior to quitting. REVIEW OF SYSTEMS: Fourteen systems reviewed and as per HPI. PHYSICAL EXAM: The patient is in bed, in no apparent distress. Vital Signs: Temperature 98.6, pulse 96 beats per minute, respiratory rate 19 to 24 per minute, O2 sat 93% on 4 L, blood pressure 145/65. HEENT: Pupils equal, reactive to light. Mucous membranes moist. Lungs: Diminished air entry, mild expiratory wheezing. Cardiovascular: S1, S2 present. Abdomen: Soft, nontender , nondistended. Bowel sounds present. Musculoskeletal: Right lower extremity externally rotated. Neuro: Alert, awake, oriented, anxiety present. DIAGNOSTIC STUDIES/LAB DATA: WBC count 17.7, hemoglobin 10.4, hematocrit 32, platelet count 363. Sodium 138, potassium 4.2, chloride 101, bicarb 33, BUN 22 , creatinine 0.5. Chest x-ray done on admission was personally reviewed by me - prominence of interstitial markings with no acute process evident. IMPRESSION AND RECOMMENDATIONS: 73-year-old female with history of severe chronic obstructive pulmonary disease, severity unknown, as per reports seems like severe. She also has chronic hypoxemic respiratory failure requiring 4 L oxygen. She does have diminished breath sounds and mild expiratory wheeze. Bicarb is slightly elevated at 33. She had fall and hip fracture on the right side and is requiring surgery. The patient to be undergoing low risk surgical procedure, which is pinning of the left hip. This could be done under local and nerve block and does not need general anesthesia, which minimizes risk for postop respiratory complications. From my end, given this is essential surgery to help minimize complications later for her that could result from immobility, she should be able to undergo the procedure as planned today. Partly, her breathing could also have been affected by her anxiety. The patient reports that her son a few days back. She does report benefit with Ativan and morphine p.r.n., which would be continued. She is also initiated on nebulizers. She would receive nebulizers perioperatively, pre and postprocedure. She would also be closely monitored during the procedure while she goes under anesthesia to ensure no further worsening of hypoxemic respiratory failure. She should do incentive spirometer and will be started on DVT prophylaxis as soon as possible after the surgery. There is no other further optimization that would help her even if she delays the surgery. If this is much required surgery in spite of the risks, she should go ahead with the surgery as the benefits outweigh the risks at this time. This was thoroughly discussed with the patient and her daughter at bedside. I also discussed with DEVEN Schumacher and Dr. Alejandra Martinez. Please feel free to contact me with any questions or concerns. [id number]/[facility] #: [id number] ALURA
--- NOTE | 2019-05-08 15:01 | PN ---
Subjective Date of Service: 05/08/19 Interval History: Significant pain overnight, as patient given less morphine and lorazepam here than her home dosing. Covered with one time doses of IV fentanyl. Patient reports significant anxiety, which is making her feel more SOB. She reports pain only over her R groin. Denies fevers, chills, orthopnea, chest pain , palpitations. She states she is always tremulous. She refuses breathing treatments, as one time, years ago, she became hypoxic after a breathing treatment and thinks the nebulizer caused hypoxia. To OR today if medically optimized by Pulm consult. UPDATE On way to OR, pt experienced significant anxiety and increased WOB. Discussed case with pulm. Possible that anxiety driving current COPD exacerbation. Pt held in PACU, given IV lorazepam and IV methylprednisone, started on BiPAP, and transferred to ICU. Objective Active Medications: Albuterol (Ventolin 2.5 Mg/3 Ml Neb.Vandana*) 2.5 mg INH Q4H PRN PRN Reason: SOB/WHEEZING Diltiazem HCl (Cardizem Tab*) 90 mg PO BID [facility] Last Admin: 05/08/19 09:08 Dose: Not Given Fluoxetine HCl (Prozac Cap*) 60 mg PO DAILY [facility] Last Admin: 05/08/19 09:08 Dose: Not Given Folic Acid (Folvite Tab*) 1 mg PO DAILY [facility] Last Admin: 05/08/19 09:08 Dose: Not Given Gabapentin (Neurontin Cap(*)) 400 mg PO TID [facility] Last Admin: 05/08/19 14:28 Dose: Not Given Sodium Chloride (Ns 0.9% 1000 Ml) 1,000 mls @ 75 mls/hr IV PER RATE [facility] Last Admin: 05/08/19 05:05 Dose: 75 mls/hr Levothyroxine Sodium (Synthroid Tab*) 50 mcg PO 0600 [facility] Last Admin: 05/08/19 05:19 Dose: 50 mcg Lorazepam (Ativan Inj*) 0.5 mg IV PUSH Q6H PRN PRN Reason: ANXIETY Last Admin: 05/08/19 12:59 Dose: 0.5 mg Magnesium Hydroxide (Milk Of Magnesia Liq*) 30 ml PO Q6H PRN PRN Reason: CONSTIPATION Miscellaneous (Ativan Pyxis Sandoval) 1 ea N/A .ATIVAN IV SANDOVAL PRN PRN Reason: PYXIS SANDOVAL Mometasone Furoate/Formoterol Fumar (Dulera 200/5 Mdi*) 2 puff INH DAILY [facility] Last Admin: 05/08/19 09:29 Dose: 2 % Montelukast Sodium (Singulair Tab*) 10 mg PO DAILY [facility] Last Admin: 05/08/19 09:08 Dose: Not Given Morphine Sulfate (Morphine 4 Mg/Ml Vial (1 Ml)) 8 mg IV Q4H PRN PRN Reason: PAIN - SEVERE Last Admin: 05/08/19 09:24 Dose: 8 mg Ondansetron HCl (Zofran Inj*) 4 mg IV Q6H PRN PRN Reason: NAUSEA Pantoprazole Sodium (Protonix Tab*) 40 mg PO DAILY [facility] Last Admin: 05/08/19 09:08 Dose: Not Given Prednisone (Deltasone Tab*) 10 mg PO DAILY [facility] Last Admin: 05/08/19 09:08 Dose: Not Given Senna (Senokot 8.6 Mg Tab*) 2 tab PO BEDTIME [facility] Last Admin: 05/07/19 21:35 Dose: 2 tab Tiotropium [place] (Spiriva Respimat 2.5 Mcg) 2 puff INH DAILY [facility] Last Admin: 05/08/19 09:30 Dose: 2 puff Vital Signs - 8 hr 05/08/19 05/08/19 05/08/19 07:56 08:00 09:24 Temperature 99.3 F Pulse Rate 99 Respiratory 18 18 28 Rate Blood Pressure 130/65 (mmHg) O2 Sat by Pulse 96 Oximetry 05/08/19 05/08/19 11:10 12:59 Temperature 98.6 F Pulse Rate 96 Respiratory 19 28 Rate Blood Pressure 145/65 (mmHg) O2 Sat by Pulse 93 Oximetry Oxygen Devices in Use Now: Nasal Cannula Appearance: anxious, increased WOB Ears/Nose/Mouth/Throat: Clear Oropharnyx, Mucous Membranes Moist Neck: NL Appearance and Movements; NL JVP Respiratory: - - scant expiratory wheeze, decreased air movement b/l Cardiovascular: NL Sounds; No Murmurs; No JVD, RRR Abdominal: NL Sounds; No Tenderness; No Distention, No Hepatosplenomegaly Extremities: No Edema Neurological: Alert and Oriented x 3 Result Diagrams: 05/09/19 03:15 05/09/19 03:15 Assess/Plan/Problems-Billing 73W with end-stage COPD with chronic hypoxic respiratory failure on 4L O2 at home, also on morphine/lorazepam, who presents after mechanical fall with R hip fracture. Planned for OR 05/09. - Patient Problems (1) Closed right hip fracture Comment: - appreciate Ortho input - Dr. Valentine to medically optimize for OR - pain control with morphine, bowel regimen (2) COPD (chronic obstructive pulmonary disease) Comment: - pt refuses nebs - cont home inhalers, home pred 10 daily - cont home morphine and Ativan, switch to IV pending OR (3) Anxiety Comment: Significant anxiety driving dyspnea. - cont home Ativan, convert to IV prn - cont home SSRI (4) DVT prophylaxis Current Visit: Yes Status: Acute Comment: SCDs pending surgery (5) DNR (do not resuscitate) Current Visit: Yes Status: Acute
[2019-05-08] MEDS ORDERED: LORazepam INJ* 2 MG/ML 1 ML VIAL IV PUSH ONE (16:04)
[2019-05-08] MEDS ORDERED: Lorazepam PYXIS KEY ONE (16:08)
[2019-05-08] MEDS ORDERED: LORazepam INJ* 2 MG/ML 1 ML VIAL ONE (16:08)
[2019-05-08] MEDS ORDERED: Albuterol/Ipratropium NEB.SOL* Albuterol 2.5 MG/Ipratropium 0.5 MG 3 ML INH ONE (16:22)
[2019-05-08] MEDS ORDERED: methylPREDNISolone 125 MG* 2 ML VIAL IV ONE (16:23)
[2019-05-08 19:11] LABS: Magnesium 1.8 mg/dL (1.9-2.7)
[2019-05-08 19:29] LABS: TSH (Thyroid Stimulating Horm) 0.9 mcIU/mL (0.34-5.60)
[2019-05-08] MEDS ORDERED: Metoprolol Tartrate IV* 1 MG/ML 5 ML VIAL IV ONE (20:50)
[2019-05-08] MEDS: Senna TAB 8.6 mg* TAB PO SCH (21:36)
[2019-05-09] MEDS: LORazepam INJ* 2 MG/ML 1 ML VIAL IV PUSH PRN ×3 (00:53→21:02)
[2019-05-09 03:35] LABS: ABS Lymphocytes 0.2 10^3/ul (1.0-4.8); ABS Monocytes 0.2 10^3/ul (0-0.8); ABS Neutrophils 17.1 10^3/ul (1.5-7.7); Hematocrit 30 % (35-47); Hemoglobin 9.9 g/dL (12.0-16.0); Lymphocyte % 1.4 %; Mean Corpuscular HGB Conc 33 g/dL (31-36); Mean Corpuscular Hemoglobin 29 pg (27-31); Mean Corpuscular Volume 89 fL (80-97); Mean Platelet Volume 7.6 fL (7.4-10.4); Platelet Count 309 10^3/uL (150-450); Red Blood Count 3.37 10^6 /uL (3.70-4.87); Red Cell Distribution Width 16 % (10-15); White Blood Count 17.5 10^3/uL (3.5-10.8)
[2019-05-09 03:37] LABS: INR 1.14 (0.82-1.09)
[2019-05-09 03:50] LABS: BUN/Creatinine Ratio 48.9 (8-20); Calcium 9.3 mg/dL (8.6-10.3); EGFR African American 165.3 (>60); EGFR Non-African American 136.6 (>60); Magnesium 1.8 mg/dL (1.9-2.7); Potassium 3.8 mmol/L (3.5-5.0)
[2019-05-09] MEDS: Morphine 4 MG/ML VIAL (1 ml) 4 MG/ML VIAL IV PRN ×3 (05:50→20:50)
[2019-05-09] MEDS: FLUoxetine CAP* 20 MG PO SCH (08:10)
[2019-05-09] MEDS: Diltiazem TAB* 30 MG PO SCH ×2 (08:10→20:54)
[2019-05-09] MEDS: Folic Acid TAB* 1 MG PO SCH (08:11)
[2019-05-09] MEDS: predniSONE TAB* 10 MG PO SCH (08:11)
[2019-05-09] MEDS: Pantoprazole TAB * 40 MG TAB PO SCH (08:11)
[2019-05-09] MEDS: Gabapentin CAP(*) 400 MG PO SCH ×3 (08:15→20:54)
[2019-05-09] MEDS: Mometasone/Formoter 200/5 MDI INH SCH (08:18)
[2019-05-09] MEDS: SPIRIVA Respimat* (tiotropium) 2.5 mcg/inh Inhaler INH SCH (08:18)
--- NOTE | 2019-05-09 11:03 | PN ---
Date of Service: 05/09/19 Critical Care Services: Scenario most consistent with acute anxiety attack precipitating cancel of OR yesterday Vital Signs: Temp Pulse Resp BP SpO2 FiO2 36.2 C 91 18 128/63 95 40 05/09/19 07:56 05/09/19 10:00 05/09/19 10:01 05/09/19 10:00 05/09/19 10:00 05/08 20:00 Physical Exam: Gen: Alternating between periods of somnolence and mild agitation with some hallucinations, "seeing bugs" HEENT: NCAT, PERRL Lungs: decreased entry, no wheeze Cardiac: S1S2 regular Abdomen: soft, NT, ND, +BS Extremities: distal PMS intact, trace edema, limited ROM to affected Neuro: Genrally A&O, grossly non-focal Fluid Balance (Past 24 Hours): I= O= Net Intake & Output 05/07/19 05/08/19 05/09/19 05/10/19 06:59 06:59 06:59 06:59 Intake Total 979 0 Output Total 320 685 44 Balance 659 -685 -44 Weight 61.235 kg 61.8 kg Intake: IV Fluids 979 NS (0.9%) 979 Oral 0 Output: Urine 0 Tucker 320 685 44 Labs: Laboratory Results - last 24 hr 05/08/19 05/09/19 05/09/19 05:19 03:15 03:15 WBC 17.5 H RBC 3.37 L Hgb 9.9 L Hct 30 L MCV 89 MCH 29 MCHC 33 RDW 16 H Plt Count 309 MPV 7.6 Neut % (Auto) 97.3 Lymph % (Auto) 1.4 [place] % (Auto) 1.1 Eos % (Auto) 0.0 Baso % (Auto) 0.2 Absolute Neuts (auto) 17.1 H Absolute Lymphs (auto) 0.2 L Absolute Monos (auto) 0.2 Absolute Eos (auto) 0.0 Absolute Basos (auto) 0.0 Absolute Nucleated RBC 0.0 Nucleated RBC % 0.0 INR (Anticoag Therapy) Sodium 138 137 Potassium 4.2 3.8 Chloride 101 99 L Carbon Dioxide 33 H 32 Anion Gap 4 6 BUN 22 22 Creatinine 0.55 0.45 L Est GFR ( Amer) 131.1 165.3 Est GFR (Non-Af Amer) 108.3 136.6 BUN/Creatinine Ratio 40.0 H 48.9 H Glucose 111 H 151 H Calcium 9.1 9.3 Magnesium 1.8 L 1.8 L TSH 0.90 05/09/19 03:15 WBC RBC Hgb Hct MCV MCH MCHC RDW Plt Count MPV Neut % (Auto) Lymph % (Auto) [place] % (Auto) Eos % (Auto) Baso % (Auto) Absolute Neuts (auto) Absolute Lymphs (auto) Absolute Monos (auto) Absolute Eos (auto) Absolute Basos (auto) Absolute Nucleated RBC Nucleated RBC % INR (Anticoag Therapy) 1.14 H Sodium Potassium Chloride Carbon Dioxide Anion Gap BUN Creatinine Est GFR ( Amer) Est GFR (Non-Af Amer) BUN/Creatinine Ratio Glucose Calcium Magnesium TSH Nutrition: Taking PO Impression: Acute fracture right hip, advanced COPD, severe anxiety. Plan: Acute fracture right hip - for OR when pulmonary stable. I believe yesterday's events were most consistent with acute anxiety rather than acute primary lung pathology. She is currently medically maximized for oR at increased risk which we all acknowledge but there is nothing more to do to make her a better candidate and if the hip is not fixed the resultant lack of mobility will be fatal in itself on a more protracted course. This has all been discussed with patient and daughter in detail who both agree with that assessment and would like to move forward with OR as soon as OK with Dr. Isaacs and can be scheduled. Daughter has requested ATC dosing of narcotics and anxiolytics. I explained that I agreed that a little deeper than usual probably in her best interest but that significant over-sedation not the goal because of the attendant risks of that as well. She voiced understanding and agreement. SCDs in place. Hgb and Cr stable along with reactive leukocytosis and no fever. Continue the balance of her medication regimen as ordered.
--- NOTE | 2019-05-09 16:30 | PN ---
Progress Note - Progress Note Date of Service: 05/09/19 SOAP: Subjective: []Pt seen at bedside in ICU today. Her anxiety and pain control are much improved today. She feels she is breathing well. CAT call this morning due to resp distress, she is now breathing without difficulty on 4L oxymask and requests transition to nasal cannula Objective: [] Gen: NAD, A&O x 3, carries on appropriate conversation. Confused about if she has already had her hip repaired. RLE: skin envelope intact, tender to palpation over the right hip, RLE is otherwise nontender. f/e ankle and MTPs intact without pain. Sensation intact to light touch distally. BL Calves are supple and nontender without erythema, edema or palpable cords Assessment: [Right femoral neck fracture Plan: []NWB RLE, best rest NPO and hold chemical DVT prophy at midnight for OR tomorrow Discussed with ICU attending, she is optimized for OR with plan for tight control of anxiety and pain prior to OR Discussed with Dr Isaacs and booked with OR to follow her previously scheduled cases 05/10 Vital Signs Temp 96.8 F 05/09/19 16:00 Pulse 88 05/09/19 14:01 Resp 19 05/09/19 14:01 BP 125/72 05/09/19 14:00 Pulse Ox 96 05/09/19 14:01 Intake & Output 05/08/19 05/09/19 05/09/19 18:59 06:59 18:59 Intake Total 0 0 409 Output Total 350 335 209 Balance -350 -335 200 Weight 136 lb 3.931 oz Intake: IV Fluids 409 NS (0.9%) 409 Oral 0 0 Output: Urine 0 Tucker 350 335 209 Laboratory Last Values WBC 17.5 10^3/uL (3.5-10.8) H 05/09/19 03:15 RBC 3.37 10^6 /uL (3.70-4.87) L 05/09/19 03:15 Hgb 9.9 g/dL (12.0-16.0) L 05/09/19 03:15 Hct 30 % (35-47) L 05/09/19 03:15 MCV 89 fL (80-97) 05/09/19 03:15 MCH 29 pg (27-31) 05/09/19 03:15 MCHC 33 g/dL (31-36) 05/09/19 03:15 RDW 16 % (10-15) H 05/09/19 03:15 Plt Count 309 10^3/uL (150-450) 05/09/19 03:15 MPV 7.6 fL (7.4-10.4) 05/09/19 03:15 Neut % (Auto) 97.3 % 05/09/19 03:15 Lymph % (Auto) 1.4 % 05/09/19 03:15 [place] % (Auto) 1.1 % 05/09/19 03:15 Eos % (Auto) 0.0 % 05/09/19 03:15 Baso % (Auto) 0.2 % 05/09/19 03:15 Absolute Neuts (auto) 17.1 10^3/ul (1.5-7.7) H 05/09/19 03:15 Absolute Lymphs (auto) 0.2 10^3/ul (1.0-4.8) L 05/09/19 03:15 Absolute Monos (auto) 0.2 10^3/ul (0-0.8) 05/09/19 03:15 Absolute Eos (auto) 0.0 10^3/ul (0-0.6) 05/09/19 03:15 Absolute Basos (auto) 0.0 10^3/ul (0-0.2) 05/09/19 03:15 Absolute Nucleated RBC 0.0 10^3/ul 05/09/19 03:15 Nucleated RBC % 0.0 05/09/19 03:15 INR (Anticoag Therapy) 1.14 (0.82-1.09) H 05/09/19 03:15 Sodium 137 mmol/L (135-145) 05/09/19 03:15 Potassium 3.8 mmol/L (3.5-5.0) 05/09/19 03:15 Chloride 99 mmol/L (101-111) L 05/09/19 03:15 Carbon Dioxide 32 mmol/L (22-32) 05/09/19 03:15 Anion Gap 6 mmol/L (2-11) 05/09/19 03:15 BUN 22 mg/dL (6-24) 05/09/19 03:15 Creatinine 0.45 mg/dL (0.51-0.95) L 05/09/19 03:15 Est GFR ( Amer) 165.3 (>60) 05/09/19 03:15 Est GFR (Non-Af Amer) 136.6 (>60) 05/09/19 03:15 BUN/Creatinine Ratio 48.9 (8-20) H 05/09/19 03:15 Glucose 151 mg/dL (70-100) H 05/09/19 03:15 Calcium 9.3 mg/dL (8.6-10.3) 05/09/19 03:15 Magnesium 1.8 mg/dL (1.9-2.7) L 05/09/19 03:15 Total Bilirubin 0.30 mg/dL (0.2-1.0) 05/07/19 12:13 AST 22 U/L (13-39) 05/07/19 12:13 ALT 30 U/L (7-52) 05/07/19 12:13 Alkaline Phosphatase 74 U/L (34-104) 05/07/19 12:13 Total Protein 6.4 g/dL (6.4-8.9) 05/07/19 12:13 Albumin 3.8 g/dL (3.2-5.2) 05/07/19 12:13 Globulin 2.6 g/dL (2-4) 05/07/19 12:13 Albumin/Globulin Ratio 1.5 (1-3) 05/07/19 12:13 TSH 0.90 mcIU/mL (0.34-5.60) 05/08/19 05:19 Urine Color Yellow 05/07/19 22:53 Urine Appearance Cloudy 05/07/19 22:53 Urine pH 5.0 (5-9) 05/07/19 22:53 Ur Specific [place] 1.026 (1.010-1.030) 05/07/19 22:53 Urine Protein 2+(100 mg/dl) (Negative) A 05/07/19 22:53 Urine Ketones Negative (Negative) 05/07/19 22:53 Urine Blood 2+ (Negative) A 05/07/19 22:53 Urine Nitrate Negative (Negative) 05/07/19 22:53 Urine Bilirubin Negative (Negative) 05/07/19 22:53 Urine Urobilinogen Negative (Negative) 05/07/19 22:53 Ur Leukocyte Esterase Negative (Negative) 05/07/19 22:53 Urine WBC (Auto) Absent (Absent) 05/07/19 22:53 Urine RBC (Auto) 3+(>10/hpf) (Absent) A 05/07/19 22:53 Urine Bacteria Absent (Absent) 05/07/19 22:53 Urine Glucose Negative (Negative) 05/07/19 22:53 Blood Type A Positive 05/07/19 12:13 Antibody Screen Negative 05/07/19 12:13
[2019-05-09] MEDS: Senna TAB 8.6 mg* TAB PO SCH (20:54)
[2019-05-10] MEDS: Lactated Ringers 1000 ML Bag* 1,000 ML IV SCH ×2 (00:07→20:41)
[2019-05-10] MEDS: Morphine 4 MG/ML VIAL (1 ml) 4 MG/ML VIAL IV PRN ×4 (02:45→16:55)
[2019-05-10 06:44] LABS: ABS Basophils 0.1 10^3/ul (0-0.2); ABS Eosinophils 0.1 10^3/ul (0-0.6); ABS Lymphocytes 1.1 10^3/ul (1.0-4.8); ABS Monocytes 1.1 10^3/ul (0-0.8); ABS Neutrophils 15.6 10^3/ul (1.5-7.7); Eosinophil % 0.4 %; Hematocrit 30 % (35-47); Hemoglobin 9.9 g/dL (12.0-16.0); Lymphocyte % 5.9 %; Mean Corpuscular HGB Conc 33 g/dL (31-36); Mean Corpuscular Hemoglobin 29 pg (27-31); Mean Corpuscular Volume 88 fL (80-97); Mean Platelet Volume 7.7 fL (7.4-10.4); Platelet Count 344 10^3/uL (150-450); Red Blood Count 3.39 10^6 /uL (3.70-4.87); Red Cell Distribution Width 16 % (10-15); White Blood Count 17.9 10^3/uL (3.5-10.8)
[2019-05-10 06:48] LABS: INR 1.04 (0.82-1.09)
[2019-05-10 06:59] LABS: Calcium 9.3 mg/dL (8.6-10.3); EGFR African American 133.9 (>60); EGFR Non-African American 110.7 (>60); Potassium 4.1 mmol/L (3.5-5.0)
[2019-05-10] MEDS: LORazepam INJ* 2 MG/ML 1 ML VIAL IV PUSH PRN ×2 (07:03→16:38)
[2019-05-10] MEDS: SPIRIVA Respimat* (tiotropium) 2.5 mcg/inh Inhaler INH SCH (07:48)
[2019-05-10] MEDS: Mometasone/Formoter 200/5 MDI INH SCH (07:48)
[2019-05-10] MEDS: Gabapentin CAP(*) 400 MG PO SCH ×3 (07:57→21:19)
[2019-05-10] MEDS: Folic Acid TAB* 1 MG PO SCH (07:57)
[2019-05-10] MEDS: Diltiazem TAB* 30 MG PO SCH ×2 (07:57→21:18)
[2019-05-10] MEDS: FLUoxetine CAP* 20 MG PO SCH (07:57)
[2019-05-10] MEDS: Pantoprazole TAB * 40 MG TAB PO SCH (07:57)
[2019-05-10] MEDS: predniSONE TAB* 10 MG PO SCH (07:58)
--- NOTE | 2019-05-10 13:05 | PN ---
Date of Service: 05/10/19 Critical Care Services: Did well overnight. No BiPAP requirement. Vital Signs: Temp Pulse Resp BP SpO2 FiO2 36.2 C 88 25 147/98 96 40 05/10/19 08:00 05/10/19 12:01 05/10/19 12:01 05/10/19 12:01 05/10/19 12:01 05/08 20:00 Physical Exam: Gen: More awake and appropriate today though still with some confusion. HEENT: NCAT, PERRL Lungs: decreased entry bilat, no wheeze Cardiac: S1S2 regular Abdomen: soft, NT, ND, +BS Extremities: no edema, limited ROM right hip Neuro: A&O to baseline, grossly non-focal Fluid Balance (Past 24 Hours): I= O= Net Intake & Output 05/08/19 05/09/19 05/10/19 05/11/19 06:59 06:59 06:59 06:59 Intake Total 979 0 904 48 Output Total 320 685 529 50 Balance 659 -685 375 -2 Weight 61.235 kg 59.1 kg Intake: IV Fluids 979 754 LR 345 NS (0.9%) 979 409 Oral 0 150 48 Output: Urine 0 0 Tucker 320 685 529 50 Labs: Laboratory Results - last 24 hr 05/08/19 05/10/19 05/10/19 19:53 06:24 06:24 WBC 17.9 H RBC 3.39 L Hgb 9.9 L Hct 30 L MCV 88 MCH 29 MCHC 33 RDW 16 H Plt Count 344 MPV 7.7 Neut % (Auto) 87.0 Lymph % (Auto) 5.9 [place] % (Auto) 6.3 Eos % (Auto) 0.4 Baso % (Auto) 0.4 Absolute Neuts (auto) 15.6 H Absolute Lymphs (auto) 1.1 Absolute Monos (auto) 1.1 H Absolute Eos (auto) 0.1 Absolute Basos (auto) 0.1 Absolute Nucleated RBC 0.0 Nucleated RBC % 0.0 INR (Anticoag Therapy) 1.04 Sodium Potassium Chloride Carbon Dioxide Anion Gap BUN Creatinine Est GFR ( Amer) Est GFR (Non-Af Amer) BUN/Creatinine Ratio Glucose POC Glucose (mg/dL) 125 H Calcium 05/10/19 06:24 WBC RBC Hgb Hct MCV MCH MCHC RDW Plt Count MPV Neut % (Auto) Lymph % (Auto) [place] % (Auto) Eos % (Auto) Baso % (Auto) Absolute Neuts (auto) Absolute Lymphs (auto) Absolute Monos (auto) Absolute Eos (auto) Absolute Basos (auto) Absolute Nucleated RBC Nucleated RBC % INR (Anticoag Therapy) Sodium 140 Potassium 4.1 Chloride 100 L Carbon Dioxide 36 H Anion Gap 4 BUN 27 H Creatinine 0.54 Est GFR ( Amer) 133.9 Est GFR (Non-Af Amer) 110.7 BUN/Creatinine Ratio 50.0 H Glucose 99 POC Glucose (mg/dL) Calcium 9.3 Nutrition: NPO today for OR Impression: Advanced COPD with acute fracture right hip for OR today Plan: COPD - not in exacerbation at this time. Respiratory status is acceptable on 4L NC with no increased WOB or evidence of bronchospasm. Medically maximized with Dulera/Spiriva/Prednisone and Albuterol. Continue same and continue post-op. Medically optimized for OR at this time. Acute Fracture right hip - for OR today. Anxiety - currently well managed with SSRI and Benzos. D/W pt and daughter in detail, anxious for (not about) OR this afternoon.
[2019-05-10] MEDS ORDERED: Midazolam* 1 MG/ML 5 ML VIAL (5 MG) ONE (13:47)
[2019-05-10] MEDS ORDERED: ceFAZolin 2 GM in NS PREMIX(*) 2 GM/100 ML BAG IVPB ONE (14:06)
[2019-05-10] MEDS ORDERED: Bupivacaine 0.5%* 50 ML MDV VIAL ONE (14:14)
[2019-05-10] MEDS ORDERED: Propofol* 10 MG/ML 20 ML BTL ONE (14:37)
[2019-05-10] MEDS ORDERED: Lidocaine 2% PF * 5 ML VIAL ONE (15:10)
--- NOTE | 2019-05-10 15:54 | OP ---
Operative Report - Blank - Operative Report Date of Operation: 05/10/19 Note: PATIENT: Carole Barbosa DATE OF : 1945 DATE OF SURGERY: 05/10/2019 SURGEON: Cuauhtemoc Hagan MD BOARD MEMBER: none ANESTHESIOLOGIST: Dr. Seals PREOPERATIVE DIAGNOSIS: Right valgus impacted femoral neck hip fracture. POSTOPERATIVE DIAGNOSIS: Right valgus impacted femoral neck hip fracture. PROCEDURE: Closed reduction and internal fixation of the right femoral neck hip fracture with cannulated screws. ANESTHESIA: GETA IMPLANTS: Three Synthes 7.3mm cannulated screws ESTIMATED BLOOD LOSS: 25cc SPECIMENS: None. DRAIN: None TOURNIQUET TIME: None. COMPLICATIONS: None. STATUS: Stable from the operating room to the recovery room and then readmitted to the floor. INDICATIONS FOR PROCEDURE: Carole sustained the above-mentioned injury. Both operative and non operative treatment alternatives were reviewed. Further, the nature and risks of surgery were reviewed in careful detail. Our discussions regarding the risks of surgery included, but were not limited to, bleeding, need for blood transfusion, infection, wound problems, malunion, nonunion, AVN, nerve injury, neuroma, RSD, persistent symptoms, need for further surgery and even the remote chance of catastrophic complication, including loss of limb or . DESCRIPTION OF PROCEDURE: The patient was seen in the ICU and informed written consent was obtained. The appropriate extremity was marked. The patient was then brought to the operating room anesthesia was induced. The patient was then carefully positioned on the fracture table and all bony prominences were padded with great care. We fluoroscopically assessed the fracture. A chlorhexidine- based pre-scrub was performed followed by prep and drape in standard sterile fashion with ChloraPrep. A surgical safety pause was then conducted in which we confirmed the appropriate patient, extremity, planned procedure, availability of equipment, indication and administration of prophylactic antibiotics, and DVT prophylaxis in the form of a compression boot on the non-surgical extremity. I utilized fluoroscopy to ale out my lateral hip incision. An approximately 4 cm longitudinal incision was made. I incised through the iliotibial band to get down to the lateral femur. I used fluoroscopy to drive a guidewire up the inferior aspect of the femoral neck. Placement of the guidewire was confirmed on both AP and lateral views. I then utilized a parallel aiming guide to place 2 more guidewires superiorly up the femoral neck, anteriorly and posteriorly. The length and placement of the wires were confirmed on both AP and lateral fluoroscopic views. The length of the wires were measured with a depth gauge. The outer cortex of the femur was then over-drilled for the 3 wires. Three Synthes 7.3 mm partially threaded cannulated screws were then placed over the guidewires into the proximal femur/hip. Final placement of the screws was then confirmed on AP and lateral fluoroscopic images. I irrigated copiously and closed in layers utilizing #1 Vicryl for the iliotibial band, 2-0 Vicryl for the Tayler's and dermal layers, and flaca for the skin. A sterile dressing was then applied. At this point, the patient was carefully transitioned off of the fracture table and awakened from anesthesia. There were no complications. All needle and sponge counts were correct at the end of the case. ATTESTATION: I attest I was present and scrubbed and performed the entire procedure myself. POSTOPERATIVE PLAN: The patient will be admitted back to the medical service postoperatively and may be weightbearing as tolerated and will work with physical therapy. Chemical DVT prophylaxis is recommended for 1 month postoperatively.
[2019-05-10] MEDS ORDERED: Lorazepam PYXIS KEY ONE ×3 (16:35→18:40)
[2019-05-10] MEDS ORDERED: LORazepam INJ* 2 MG/ML 1 ML VIAL ONE ×3 (16:35→18:40)
[2019-05-10] MEDS ORDERED: oxyCODONE/Acetamin 5/325 MG* TAB ONE (16:42)
[2019-05-10] MEDS ORDERED: Morphine 4 MG/ML VIAL (1 ml) 4 MG/ML VIAL ONE ×3 (16:48→18:35)
[2019-05-10] MEDS ORDERED: Albuterol 2.5 MG/3 ML NEB.SOL* (0.083%) INH ONE (17:06)
[2019-05-10] MEDS ORDERED: LORazepam INJ* 2 MG/ML 1 ML VIAL IV PUSH ONE ×2 (18:30→18:39)
[2019-05-10] MEDS ORDERED: Morphine 4 MG/ML VIAL (1 ml) 4 MG/ML VIAL IV ONE ×2 (18:30→18:39)
[2019-05-10] MEDS ORDERED: Metoprolol Tartrate IV* 1 MG/ML 5 ML VIAL IV ONE (20:30)
[2019-05-10] MEDS: Senna TAB 8.6 mg* TAB PO SCH (21:19)
[2019-05-10] MEDS: ceFAZolin 1 GM* Q8H (AddVan) IVPB SCH ×2 (22:57)
[2019-05-11] MEDS: Morphine 4 MG/ML VIAL (1 ml) 4 MG/ML VIAL IV PRN ×3 (00:15→11:39)
[2019-05-11] MEDS: Lactated Ringers 1000 ML Bag* 1,000 ML IV SCH (06:15)
[2019-05-11] MEDS: ceFAZolin 1 GM* Q8H (AddVan) IVPB SCH ×6 (06:24→22:32)
[2019-05-11 07:13] LABS: ABS Basophils 0.1 10^3/ul (0-0.2); ABS Eosinophils 0.3 10^3/ul (0-0.6); ABS Lymphocytes 0.6 10^3/ul (1.0-4.8); ABS Monocytes 1.4 10^3/ul (0-0.8); ABS Neutrophils 13.2 10^3/ul (1.5-7.7); Eosinophil % 1.9 %; Hematocrit 29 % (35-47); Hemoglobin 9.4 g/dL (12.0-16.0); Lymphocyte % 3.6 %; Mean Corpuscular HGB Conc 32 g/dL (31-36); Mean Corpuscular Hemoglobin 29 pg (27-31); Mean Corpuscular Volume 89 fL (80-97); Mean Platelet Volume 7.4 fL (7.4-10.4); Platelet Count 323 10^3/uL (150-450); Red Blood Count 3.27 10^6 /uL (3.70-4.87); Red Cell Distribution Width 16 % (10-15); White Blood Count 15.5 10^3/uL (3.5-10.8)
[2019-05-11 07:29] LABS: BUN/Creatinine Ratio 42.3 (8-20); Calcium 8.7 mg/dL (8.6-10.3); EGFR African American 139.9 (>60); EGFR Non-African American 115.6 (>60); Potassium 3.6 mmol/L (3.5-5.0)
[2019-05-11] MEDS: Mometasone/Formoter 200/5 MDI INH SCH (07:42)
[2019-05-11] MEDS: SPIRIVA Respimat* (tiotropium) 2.5 mcg/inh Inhaler INH SCH (07:42)
[2019-05-11] MEDS: Enoxaparin(*) 30 MG/0.3 ML SYR SUBCUT SCH (10:06)
--- NOTE | 2019-05-11 10:06 | PN ---
Date of Service: 05/11/19 Critical Care Services: Agitated delirium post op, responded to benzos Vital Signs: Temp Pulse Resp BP SpO2 FiO2 36.3 C 109 24 130/83 98 40 05/11/19 07:55 05/11/19 08:01 05/11/19 08:01 05/11/19 08:01 05/11/19 08:01 05/11 08:00 Physical Exam: Gen: [place], confused, no new complaints HEENT: NCAT, PERRL Lungs: decreased entry bilat, no wheeze Cardiac: S1S2 regular Abdomen: soft, NT, ND, +BS Extremities: no edema Neuro: grossly intact to baseline Fluid Balance (Past 24 Hours): I= O= Net Intake & Output 05/09/19 05/10/19 05/11/19 05/12/19 06:59 06:59 06:59 06:59 Intake Total 0 904 2184.7 Output Total 685 529 779 150 Balance -673 799 6841.7 -150 Weight 59.1 kg 57.5 kg Intake: IV Fluids 754 1870.7 LR 345 1770.7 NS (0.9%) 409 NS 100ML, Cefazolin 2G 100 IVPB 66 ABX 66 Oral 0 150 248 Output: Urine 0 0 Tucker 685 529 679 150 Estimated Blood Loss 100 Labs: Laboratory Results - last 24 hr 05/08/19 05/10/19 05/11/19 19:53 13:20 07:00 WBC 15.5 H RBC 3.27 L Hgb 9.4 L Hct 29 L MCV 89 MCH 29 MCHC 32 RDW 16 H Plt Count 323 MPV 7.4 Neut % (Auto) 85.3 Lymph % (Auto) 3.6 [place] % (Auto) 8.8 Eos % (Auto) 1.9 Baso % (Auto) 0.4 Absolute Neuts (auto) 13.2 H Absolute Lymphs (auto) 0.6 L Absolute Monos (auto) 1.4 H Absolute Eos (auto) 0.3 Absolute Basos (auto) 0.1 Absolute Nucleated RBC 0.0 Nucleated RBC % 0.0 APTT 25.8 L Sodium Potassium Chloride Carbon Dioxide Anion Gap BUN Creatinine Est GFR ( Amer) Est GFR (Non-Af Amer) BUN/Creatinine Ratio Glucose POC Glucose (mg/dL) 125 H Calcium 05/11/19 07:00 WBC RBC Hgb Hct MCV MCH MCHC RDW Plt Count MPV Neut % (Auto) Lymph % (Auto) [place] % (Auto) Eos % (Auto) Baso % (Auto) Absolute Neuts (auto) Absolute Lymphs (auto) Absolute Monos (auto) Absolute Eos (auto) Absolute Basos (auto) Absolute Nucleated RBC Nucleated RBC % APTT Sodium 140 Potassium 3.6 Chloride 99 L Carbon Dioxide 35 H Anion Gap 6 BUN 22 Creatinine 0.52 Est GFR ( Amer) 139.9 Est GFR (Non-Af Amer) 115.6 BUN/Creatinine Ratio 42.3 H Glucose 93 POC Glucose (mg/dL) Calcium 8.7 Nutrition: Taking PO Impression: Acute fracture right hip in setting of advanced COPD Plan: Fracture right hip - POD#1 closed reduction, internal fixation right hip with 3 screws. PT etc per Ortho COPD - not in exacerbation. Maximum medical management in place. Continue same. Anxiety - well managed at this time after an acute episode post-op magnified by pain. SSRI, Benzos and narcotics working well overall. Counts and lytes OK, afebrile, respiratory status stable on 4L FM. Medically appropriate for transfer to the floor.
[2019-05-11] MEDS: Pantoprazole TAB * 40 MG TAB PO SCH (10:07)
[2019-05-11] MEDS: Diltiazem TAB* 30 MG PO SCH ×2 (10:07→22:25)
[2019-05-11] MEDS: predniSONE TAB* 10 MG PO SCH (10:07)
[2019-05-11] MEDS: Folic Acid TAB* 1 MG PO SCH (10:07)
[2019-05-11] MEDS: Gabapentin CAP(*) 400 MG PO SCH ×3 (10:07→22:23)
[2019-05-11] MEDS: FLUoxetine CAP* 20 MG PO SCH (10:07)
[2019-05-11] MEDS: Levothyroxine TAB* 50 MCG TAB PO SCH (12:08)
--- NOTE | 2019-05-11 14:04 | PN ---
Progress Note - Progress Note Date of Service: 05/11/19 SOAP: Subjective: Pt seen at bedside. No complaint of pain. Pt very sleepy but responds to verbal stimuli. Vital Signs: Temp Pulse Resp BP Pulse Ox 98.6 F 89 12 140/70 95 05/11/19 12:15 05/11/19 12:15 05/11/19 12:47 05/11/19 12:15 05/11/19 12:15 Laboratory Last Values WBC 15.5 10^3/uL (3.5-10.8) H 05/11/19 07:00 RBC 3.27 10^6 /uL (3.70-4.87) L 05/11/19 07:00 Hgb 9.4 g/dL (12.0-16.0) L 05/11/19 07:00 Hct 29 % (35-47) L 05/11/19 07:00 MCV 89 fL (80-97) 05/11/19 07:00 MCH 29 pg (27-31) 05/11/19 07:00 MCHC 32 g/dL (31-36) 05/11/19 07:00 RDW 16 % (10-15) H 05/11/19 07:00 Plt Count 323 10^3/uL (150-450) 05/11/19 07:00 MPV 7.4 fL (7.4-10.4) 05/11/19 07:00 Neut % (Auto) 85.3 % 05/11/19 07:00 Lymph % (Auto) 3.6 % 05/11/19 07:00 [place] % (Auto) 8.8 % 05/11/19 07:00 Eos % (Auto) 1.9 % 05/11/19 07:00 Baso % (Auto) 0.4 % 05/11/19 07:00 Absolute Neuts (auto) 13.2 10^3/ul (1.5-7.7) H 05/11/19 07:00 Absolute Lymphs (auto) 0.6 10^3/ul (1.0-4.8) L 05/11/19 07:00 Absolute Monos (auto) 1.4 10^3/ul (0-0.8) H 05/11/19 07:00 Absolute Eos (auto) 0.3 10^3/ul (0-0.6) 05/11/19 07:00 Absolute Basos (auto) 0.1 10^3/ul (0-0.2) 05/11/19 07:00 Absolute Nucleated RBC 0.0 10^3/ul 05/11/19 07:00 Nucleated RBC % 0.0 05/11/19 07:00 INR (Anticoag Therapy) 1.04 (0.82-1.09) 05/10/19 06:24 APTT 25.8 seconds (26.0-38.0) L 05/10/19 13:20 Sodium 140 mmol/L (135-145) 05/11/19 07:00 Potassium 3.6 mmol/L (3.5-5.0) 05/11/19 07:00 Chloride 99 mmol/L (101-111) L 05/11/19 07:00 Carbon Dioxide 35 mmol/L (22-32) H 05/11/19 07:00 Anion Gap 6 mmol/L (2-11) 05/11/19 07:00 BUN 22 mg/dL (6-24) 05/11/19 07:00 Creatinine 0.52 mg/dL (0.51-0.95) 05/11/19 07:00 Est GFR ( Amer) 139.9 (>60) 05/11/19 07:00 Est GFR (Non-Af Amer) 115.6 (>60) 05/11/19 07:00 BUN/Creatinine Ratio 42.3 (8-20) H 05/11/19 07:00 Glucose 93 mg/dL (70-100) 05/11/19 07:00 POC Glucose (mg/dL) 125 mg/dL (70-100) H 05/08/19 19:53 Calcium 8.7 mg/dL (8.6-10.3) 05/11/19 07:00 Magnesium 1.8 mg/dL (1.9-2.7) L 05/09/19 03:15 Total Bilirubin 0.30 mg/dL (0.2-1.0) 05/07/19 12:13 AST 22 U/L (13-39) 05/07/19 12:13 ALT 30 U/L (7-52) 05/07/19 12:13 Alkaline Phosphatase 74 U/L (34-104) 05/07/19 12:13 Total Protein 6.4 g/dL (6.4-8.9) 05/07/19 12:13 Albumin 3.8 g/dL (3.2-5.2) 05/07/19 12:13 Globulin 2.6 g/dL (2-4) 05/07/19 12:13 Albumin/Globulin Ratio 1.5 (1-3) 05/07/19 12:13 TSH 0.90 mcIU/mL (0.34-5.60) 05/08/19 05:19 Urine Color Yellow 05/07/19 22:53 Urine Appearance Cloudy 05/07/19 22:53 Urine pH 5.0 (5-9) 05/07/19 22:53 Ur Specific [place] 1.026 (1.010-1.030) 05/07/19 22:53 Urine Protein 2+(100 mg/dl) (Negative) A 05/07/19 22:53 Urine Ketones Negative (Negative) 05/07/19 22:53 Urine Blood 2+ (Negative) A 05/07/19 22:53 Urine Nitrate Negative (Negative) 05/07/19 22:53 Urine Bilirubin Negative (Negative) 05/07/19 22:53 Urine Urobilinogen Negative (Negative) 05/07/19 22:53 Ur Leukocyte Esterase Negative (Negative) 05/07/19 22:53 Urine WBC (Auto) Absent (Absent) 05/07/19 22:53 Urine RBC (Auto) 3+(>10/hpf) (Absent) A 05/07/19 22:53 Urine Bacteria Absent (Absent) 05/07/19 22:53 Urine Glucose Negative (Negative) 05/07/19 22:53 Blood Type A Positive 05/07/19 12:13 Antibody Screen Negative 05/07/19 12:13 Objective: Awake, NAD Dressing C/D/I, Calves soft, NVI distally Assessment: 73 yo female s/p Closed reduction fixation with cannulated screws right femoral neck fracture POD #1 Plan: OOB, PT/OT WBAT Pain control DVT prophylaxis - Lovenox Will likely go back to [place] when medically stable
[2019-05-11] MEDS: LORazepam INJ* 2 MG/ML 1 ML VIAL IV PUSH PRN (16:58)
[2019-05-11] MEDS: Senna TAB 8.6 mg* TAB PO SCH (22:23)
[2019-05-11] MEDS: oxyCODONE/Acetamin 5/325 MG* TAB PO PRN (22:24)
[2019-05-12] MEDS: LORazepam INJ* 2 MG/ML 1 ML VIAL IV PUSH PRN (00:18)
[2019-05-12 05:51] LABS: Hematocrit 28 % (35-47); Hemoglobin 9.2 g/dL (12.0-16.0); Mean Corpuscular HGB Conc 33 g/dL (31-36); Mean Corpuscular Hemoglobin 29 pg (27-31); Mean Corpuscular Volume 89 fL (80-97); Mean Platelet Volume 7.4 fL (7.4-10.4); Platelet Count 298 10^3/uL (150-450); Red Blood Count 3.19 10^6 /uL (3.70-4.87); Red Cell Distribution Width 16 % (10-15); White Blood Count 11.6 10^3/uL (3.5-10.8)
[2019-05-12] MEDS: ceFAZolin 1 GM* Q8H (AddVan) IVPB SCH ×2 (06:18)
[2019-05-12] MEDS: Folic Acid TAB* 1 MG PO SCH (09:08)
[2019-05-12] MEDS: oxyCODONE/Acetamin 5/325 MG* TAB PO PRN (09:08)
[2019-05-12] MEDS: FLUoxetine CAP* 20 MG PO SCH (09:08)
[2019-05-12] MEDS: Pantoprazole TAB * 40 MG TAB PO SCH (09:09)
[2019-05-12] MEDS: Diltiazem TAB* 30 MG PO SCH ×2 (09:09→21:49)
[2019-05-12] MEDS: Gabapentin CAP(*) 400 MG PO SCH ×3 (09:09→21:50)
[2019-05-12] MEDS: predniSONE TAB* 10 MG PO SCH (09:09)
[2019-05-12] MEDS: Enoxaparin(*) 30 MG/0.3 ML SYR SUBCUT SCH (09:13)
[2019-05-12] MEDS: Morphine 4 MG/ML VIAL (1 ml) 4 MG/ML VIAL IV PRN ×3 (09:27→21:50)
[2019-05-12] MEDS: SPIRIVA Respimat* (tiotropium) 2.5 mcg/inh Inhaler INH SCH (09:37)
[2019-05-12] MEDS: Mometasone/Formoter 200/5 MDI INH SCH (09:37)
--- NOTE | 2019-05-12 09:58 | PN ---
Subjective Date of Service: 05/12/19 Interval History: Pt is feeling drowsy at this time. Nursing notes the patient has continued to c/ o R hip pain. She denies any SOB at this time. She has been refusing PT and when I try to discuss this with her today she states "No." She will not elaborate as to why she will not participate. Objective Active Medications: Albuterol (Ventolin 2.5 Mg/3 Ml Neb.Vandana*) 2.5 mg INH Q4H PRN PRN Reason: SOB/WHEEZING Last Admin: 05/10/19 17:08 Dose: 2.5 mg Diltiazem HCl (Cardizem Tab*) 90 mg PO BID [facility] Last Admin: 05/12/19 09:09 Dose: 90 mg Enoxaparin Sodium (Lovenox(*)) 30 mg SUBCUT DAILY [facility] Last Admin: 05/12/19 09:13 Dose: 30 mg Fluoxetine HCl (Prozac Cap*) 60 mg PO DAILY [facility] Last Admin: 05/12/19 09:08 Dose: 60 mg Folic Acid (Folvite Tab*) 1 mg PO DAILY [facility] Last Admin: 05/12/19 09:08 Dose: 1 mg Gabapentin (Neurontin Cap(*)) 400 mg PO TID [facility] Last Admin: 05/12/19 09:09 Dose: 400 mg Cefazolin Sodium 1 gm/ Sodium (Chloride) 50 mls @ 200 mls/hr IVPB Q8H [facility] Last Admin: 05/12/19 06:18 Dose: 200 mls/hr Lorazepam (Ativan Inj*) 0.5 mg IV PUSH Q6H PRN PRN Reason: ANXIETY Last Admin: 05/12/19 00:18 Dose: 0.5 mg Magnesium Hydroxide (Milk Of Magnesia Liq*) 30 ml PO Q6H PRN PRN Reason: CONSTIPATION Miscellaneous (Ativan Pyxis Sandoval) 1 ea N/A .ATIVAN IV SANDOVAL PRN PRN Reason: PYXIS SANDOVAL Mometasone Furoate/Formoterol Fumar (Dulera 200/5 Mdi*) 2 puff INH DAILY [facility] Last Admin: 05/12/19 09:37 Dose: 2 puff Morphine Sulfate (Morphine 4 Mg/Ml Vial (1 Ml)) 8 mg IV Q4H PRN PRN Reason: Severe Pain or Dyspnea Last Admin: 05/12/19 09:27 Dose: 8 mg Ondansetron HCl (Zofran Inj*) 4 mg IV Q6H PRN PRN Reason: NAUSEA Oxycodone/Acetaminophen (Percocet 5/325 Tab*) 1 tab PO Q4H PRN PRN Reason: PAIN - MODERATE Last Admin: 05/12/19 09:08 Dose: 1 tab Pantoprazole Sodium (Protonix Tab*) 40 mg PO DAILY [facility] Last Admin: 05/12/19 09:09 Dose: 40 mg Prednisone (Deltasone Tab*) 10 mg PO DAILY [facility] Last Admin: 05/12/19 09:09 Dose: 10 mg Senna (Senokot 8.6 Mg Tab*) 2 tab PO BEDTIME [facility] Last Admin: 05/11/19 22:23 Dose: 2 tab Tiotropium [place] (Spiriva Respimat 2.5 Mcg) 2 puff INH DAILY [facility] Last Admin: 05/12/19 09:37 Dose: 2 puff Vital Signs - 8 hr 05/12/19 05/12/19 05/12/19 04:07 06:18 08:22 Temperature 98.0 F 98.4 F Pulse Rate 88 95 Respiratory 16 14 25 Rate Blood Pressure 125/60 140/65 (mmHg) O2 Sat by Pulse 99 96 Oximetry 05/12/19 05/12/19 05/12/19 09:08 09:09 09:19 Temperature Pulse Rate Respiratory 28 28 30 Rate Blood Pressure (mmHg) O2 Sat by Pulse Oximetry 05/12/19 05/12/19 09:27 09:42 Temperature Pulse Rate 99 Respiratory 30 25 Rate Blood Pressure (mmHg) O2 Sat by Pulse 97 Oximetry Oxygen Devices in Use Now: OxyMask Appearance: Elderly, chronically ill appearing female sitting up in bed, drowsy , NAD Eyes: No Scleral Icterus Ears/Nose/Mouth/Throat: Mucous Membranes Moist Respiratory: Symmetrical Chest Expansion and Respiratory Effort, Clear to Auscultation - diminished breath sounds throughout Cardiovascular: NL Sounds; No Murmurs; No JVD, RRR, No Edema Abdominal: NL Sounds; No Tenderness; No Distention Extremities: No Clubbing, Cyanosis, - - R hip with dressing in place Skin: No Rash or Ulcers Neurological: - - drowsy, does not remember me from admission Result Diagrams: 05/12/19 05:37 05/11/19 07:00 Assess/Plan/Problems-Billing Ms Barbosa is a 73yo F with end-stage COPD with chronic hypoxic respiratory failure on 4L O2 at home, also on morphine/lorazepam, who presents after mechanical fall with R hip fracture. - Patient Problems (1) Closed right hip fracture Current Visit: Yes Status: Acute Code(s): S72.001A - FRACTURE OF UNSP PART OF NECK OF RIGHT FEMUR, INIT SNOMED Code(s): 360744627 Comment: Pt went to OR 05/10/19. Pt is now delirious. She continues to have pain. Utilize morphine. Start PT if pt will allow. We may need to use the patient's daughter to help motivate the patient to participate with PT. (2) COPD (chronic obstructive pulmonary disease) Current Visit: Yes Status: Acute Code(s): J44.9 - CHRONIC OBSTRUCTIVE PULMONARY DISEASE, UNSPECIFIED SNOMED Code(s): 55175357 Comment: Pt with endstage COPD. Continue prednisone, morphine and ativan. Pt not wheezy or needing nebs at this time. (3) Leukocytosis Current Visit: Yes Status: Acute Code(s): D72.829 - ELEVATED WHITE BLOOD CELL COUNT, UNSPECIFIED SNOMED Code(s): 763811123 Comment: Improving-she has been receiving cefazolin for prophylaxis post up. Likely stress driving up WBC count. Continue to monitor. (4) Anxiety Current Visit: Yes Status: Acute Code(s): F41.9 - ANXIETY DISORDER, UNSPECIFIED SNOMED Code(s): 69956936 Comment: Pt with significant anxiety at baseline. Continue prn ativan but change back to oral. (5) Hypothyroidism Current Visit: Yes Status: Acute Code(s): E03.9 - HYPOTHYROIDISM, UNSPECIFIED SNOMED Code(s): 08869469 Comment: TSH in good range. Continue synthroid. (6) DVT prophylaxis Current Visit: Yes Status: Acute Code(s): Z29.9 - ENCOUNTER FOR PROPHYLACTIC MEASURES, UNSPECIFIED SNOMED Code(s): 447592068 Comment: Lovenox x30 days post-op (7) DNR (do not resuscitate) Current Visit: Yes Status: Acute
--- NOTE | 2019-05-12 10:41 | PN ---
Progress Note - Progress Note Date of Service: 05/12/19 - POD #2 Note: POD 2: s/p right femoral neck closed reduction and internal fixation with cannulated screws. Patient's pain well managed. Breathing easily on 4L O2. Denies CP, calf or thigh pain. Working with PT on active transfers. Active DF/ PF bilateral ankles with 2+DP pulses and intact sensation. Dressing C/D/I and changed today. Incision well approximated and benign appearing. Continue WBAT, PT and pain management. Appreciate medical management. We will continue to follow.
[2019-05-12] MEDS: Senna TAB 8.6 mg* TAB PO SCH (21:49)
[2019-05-13] MEDS ORDERED: Bisacodyl SUPP* 10 MG SUPP PR PRN (07:42)
--- NOTE | 2019-05-13 07:44 | PN ---
Subjective Date of Service: 05/13/19 Interval History: Pt states her pain is feeling better today. Her breathing is not too labored. Her biggest issue at this time is that she needs to have a BM. Objective Active Medications: Albuterol (Ventolin 2.5 Mg/3 Ml Neb.Vandana*) 2.5 mg INH Q4H PRN PRN Reason: SOB/WHEEZING Last Admin: 05/10/19 17:08 Dose: 2.5 mg Bisacodyl (Dulcolax Supp*) 10 mg [place] DAILY PRN PRN Reason: CONSTIPATION Diltiazem HCl (Cardizem Tab*) 90 mg PO BID [facility] Last Admin: 05/12/19 21:49 Dose: 90 mg Enoxaparin Sodium (Lovenox(*)) 30 mg SUBCUT DAILY [facility] Last Admin: 05/12/19 09:13 Dose: 30 mg Fluoxetine HCl (Prozac Cap*) 60 mg PO DAILY [facility] Last Admin: 05/12/19 09:08 Dose: 60 mg Folic Acid (Folvite Tab*) 1 mg PO DAILY [facility] Last Admin: 05/12/19 09:08 Dose: 1 mg Gabapentin (Neurontin Cap(*)) 400 mg PO TID [facility] Last Admin: 05/12/19 21:50 Dose: 400 mg Lorazepam (Ativan Tab(*)) 0.5 mg PO Q6H PRN PRN Reason: ANXIETY Magnesium Hydroxide (Milk Of Magnesia Liq*) 30 ml PO Q6H PRN PRN Reason: CONSTIPATION Miscellaneous (Ativan Pyxis Sandoval) 1 ea N/A .ATIVAN IV SANDOVAL PRN PRN Reason: PYXIS SANDOVAL Mometasone Furoate/Formoterol Fumar (Dulera 200/5 Mdi*) 2 puff INH DAILY [facility] Last Admin: 05/12/19 09:37 Dose: 2 puff Morphine Sulfate (Morphine 4 Mg/Ml Vial (1 Ml)) 8 mg IV Q4H PRN PRN Reason: Severe Pain or Dyspnea Last Admin: 05/12/19 21:50 Dose: 8 mg Ondansetron HCl (Zofran Inj*) 4 mg IV Q6H PRN PRN Reason: NAUSEA Oxycodone/Acetaminophen (Percocet 5/325 Tab*) 1 tab PO Q4H PRN PRN Reason: PAIN - MODERATE Last Admin: 05/12/19 09:08 Dose: 1 tab Pantoprazole Sodium (Protonix Tab*) 40 mg PO DAILY [facility] Last Admin: 05/12/19 09:09 Dose: 40 mg Prednisone (Deltasone Tab*) 10 mg PO DAILY [facility] Last Admin: 05/12/19 09:09 Dose: 10 mg Senna (Senokot 8.6 Mg Tab*) 2 tab PO BEDTIME [facility] Last Admin: 05/12/19 21:49 Dose: 2 tab Tiotropium [place] (Spiriva Respimat 2.5 Mcg) 2 puff INH DAILY [facility] Last Admin: 05/12/19 09:37 Dose: 2 puff Vital Signs - 8 hr 05/12/19 05/13/19 05/13/19 23:58 04:24 05:41 Temperature 98.1 F 98.6 F Pulse Rate 77 81 Respiratory 18 20 20 Rate Blood Pressure 130/55 132/65 (mmHg) O2 Sat by Pulse 94 96 Oximetry 05/13/19 05:42 Temperature Pulse Rate Respiratory 20 Rate Blood Pressure (mmHg) O2 Sat by Pulse Oximetry Oxygen Devices in Use Now: OxyMask Appearance: Elderly female lying in bed on her L side, NAD Eyes: No Scleral Icterus Ears/Nose/Mouth/Throat: Mucous Membranes Moist Respiratory: Symmetrical Chest Expansion and Respiratory Effort, Clear to Auscultation - markedly diminished breath sounds throughout Cardiovascular: NL Sounds; No Murmurs; No JVD, RRR, No Edema Abdominal: NL Sounds; No Tenderness; No Distention Extremities: No Clubbing, Cyanosis, - - Hip incision not inspected by myself Skin: No Nodules or Sclerosis Neurological: Alert and Oriented x 3 Result Diagrams: 05/12/19 05:37 05/11/19 07:00 Assess/Plan/Problems-Billing Ms Barbosa is a 73yo F with end-stage COPD with chronic hypoxic respiratory failure on 4L O2 at home, also on morphine/lorazepam, who presents after mechanical fall with R hip fracture. - Patient Problems (1) Closed right hip fracture Current Visit: Yes Status: Acute Code(s): S72.001A - FRACTURE OF UNSP PART OF NECK OF RIGHT FEMUR, INIT SNOMED Code(s): 514060758 Comment: Pt went to OR 05/10/19. Improving mental status today. She is still hesitant to work with PT. She will likely be ready to go back to [facility] in the next 1-2 days. Change back to morphine oral for pain. (2) COPD (chronic obstructive pulmonary disease) Current Visit: Yes Status: Acute Code(s): J44.9 - CHRONIC OBSTRUCTIVE PULMONARY DISEASE, UNSPECIFIED SNOMED Code(s): 95882573 Comment: Pt with endstage COPD. Continue prednisone, morphine and ativan. Pt not wheezy or needing nebs at this time. (3) Leukocytosis Current Visit: Yes Status: Acute Code(s): D72.829 - ELEVATED WHITE BLOOD CELL COUNT, UNSPECIFIED SNOMED Code(s): 321422180 Comment: Follow up CBC tomorrow. (4) Anxiety Current Visit: Yes Status: Acute Code(s): F41.9 - ANXIETY DISORDER, UNSPECIFIED SNOMED Code(s): 25689616 Comment: Pt with significant anxiety at baseline. Continue prn ativan. (5) Hypothyroidism Current Visit: Yes Status: Acute Code(s): E03.9 - HYPOTHYROIDISM, UNSPECIFIED SNOMED Code(s): 10016145 Comment: TSH in good range. Continue synthroid. (6) DVT prophylaxis Current Visit: Yes Status: Acute Code(s): Z29.9 - ENCOUNTER FOR PROPHYLACTIC MEASURES, UNSPECIFIED SNOMED Code(s): 600203295 Comment: Lovenox x30 days post-op (7) DNR (do not resuscitate) Current Visit: Yes Status: Acute
[2019-05-13] MEDS: Morphine 4 MG/ML VIAL (1 ml) 4 MG/ML VIAL IV PRN (07:57)
[2019-05-13] MEDS: SPIRIVA Respimat* (tiotropium) 2.5 mcg/inh Inhaler INH SCH (09:08)
[2019-05-13] MEDS: Mometasone/Formoter 200/5 MDI INH SCH (09:08)
[2019-05-13] MEDS: Folic Acid TAB* 1 MG PO SCH (09:11)
[2019-05-13] MEDS: LORazepam TAB(*) 0.5 MG PO PRN (09:11)
[2019-05-13] MEDS: Pantoprazole TAB * 40 MG TAB PO SCH (09:11)
[2019-05-13] MEDS: FLUoxetine CAP* 20 MG PO SCH (09:12)
[2019-05-13] MEDS: Diltiazem TAB* 30 MG PO SCH ×2 (09:12→20:30)
[2019-05-13] MEDS: Gabapentin CAP(*) 400 MG PO SCH ×3 (09:12→20:27)
[2019-05-13] MEDS: Magnesium Hydroxide LIQ* 30 ML UDC PO PRN (09:13)
[2019-05-13] MEDS: predniSONE TAB* 10 MG PO SCH (09:14)
[2019-05-13] MEDS: Enoxaparin(*) 30 MG/0.3 ML SYR SUBCUT SCH (09:18)
--- NOTE | 2019-05-13 10:10 | PN ---
Progress Note - Progress Note Date of Service: 05/13/19 Note: POD #3: s/p right femoral neck closed reduction and internal fixation with cannulated screws. Patient's pain well managed. Breathing easily on 4L O2. Denies CP, dizziness, calf or thigh pain. Working with PT on active transfers. Active DF/PF bilateral ankles with 2+DP pulses and intact sensation. Dressing C/ D/I. I discussed the importance of her getting up and moving. She feels the PT folks "think they are the boss of her". I discussed the fact that they are here to help and are only encouraging her, so she should try to work with them. Continue WBAT, PT and pain management. Appreciate medical management. We will continue to follow.
[2019-05-13] MEDS ORDERED: Morphine 4 MG/ML VIAL (1 ml) 4 MG/ML VIAL IV PRN (11:12)
[2019-05-13] MEDS: Morphine ORAL CONCENTRATE* 5 MG/0.25 ML ORAL.SYRIN PO PRN ×2 (14:22→19:26)
[2019-05-13] MEDS: Senna TAB 8.6 mg* TAB PO SCH (20:28)
[2019-05-14] MEDS: Morphine ORAL CONCENTRATE* 5 MG/0.25 ML ORAL.SYRIN PO PRN ×5 (04:07→21:48)
[2019-05-14] MEDS: SPIRIVA Respimat* (tiotropium) 2.5 mcg/inh Inhaler INH SCH (08:06)
[2019-05-14] MEDS: Mometasone/Formoter 200/5 MDI INH SCH (08:06)
[2019-05-14] MEDS: Diltiazem TAB* 30 MG PO SCH ×2 (09:09→21:47)
[2019-05-14] MEDS: Enoxaparin(*) 30 MG/0.3 ML SYR SUBCUT SCH (09:09)
[2019-05-14] MEDS: LORazepam TAB(*) 0.5 MG PO PRN ×2 (09:09→16:33)
[2019-05-14] MEDS: Gabapentin CAP(*) 400 MG PO SCH ×3 (09:09→21:49)
[2019-05-14] MEDS: Folic Acid TAB* 1 MG PO SCH (09:09)
[2019-05-14] MEDS: FLUoxetine CAP* 20 MG PO SCH (09:09)
[2019-05-14] MEDS: Pantoprazole TAB * 40 MG TAB PO SCH (09:10)
[2019-05-14] MEDS: predniSONE TAB* 10 MG PO SCH (09:10)
--- NOTE | 2019-05-14 12:33 | PN ---
Subjective Date of Service: 05/14/19 Interval History: No events overnight. Pt request to keep in dunaway until she is able to transfer more easily. Also with new vesicles on back - not painful but in dermatome and grouped vesicle on erythematous base. Pt still very anxious. Reports she doesn't want to go back to her old longterm. Doesn't understand why she needs to go to longterm. Explained necessity of rehab. Pt initially inquired about other options and then later asked that we do not explore other options. Objective Active Medications: Albuterol (Ventolin 2.5 Mg/3 Ml Neb.Vandana*) 2.5 mg INH Q4H PRN PRN Reason: SOB/WHEEZING Last Admin: 05/10/19 17:08 Dose: 2.5 mg Bisacodyl (Dulcolax Supp*) 10 mg [place] DAILY PRN PRN Reason: CONSTIPATION Diltiazem HCl (Cardizem Tab*) 90 mg PO BID [facility] Last Admin: 05/14/19 09:09 Dose: 90 mg Enoxaparin Sodium (Lovenox(*)) 30 mg SUBCUT DAILY [facility] Last Admin: 05/14/19 09:09 Dose: 30 mg Fluoxetine HCl (Prozac Cap*) 60 mg PO DAILY [facility] Last Admin: 05/14/19 09:09 Dose: 60 mg Folic Acid (Folvite Tab*) 1 mg PO DAILY [facility] Last Admin: 05/14/19 09:09 Dose: 1 mg Gabapentin (Neurontin Cap(*)) 400 mg PO TID [facility] Last Admin: 05/14/19 09:09 Dose: 400 mg Lorazepam (Ativan Tab(*)) 0.5 mg PO Q6H PRN PRN Reason: ANXIETY Last Admin: 05/14/19 09:09 Dose: 0.5 mg Magnesium Hydroxide (Milk Of Magnesia Liq*) 30 ml PO Q6H PRN PRN Reason: CONSTIPATION Last Admin: 05/13/19 09:13 Dose: 30 ml Mometasone Furoate/Formoterol Fumar (Dulera 200/5 Mdi*) 2 puff INH DAILY [facility] Last Admin: 05/14/19 08:06 Dose: 2 puff Morphine Sulfate (Morphine Oral Concentrate*) 10 mg PO Q2H PRN PRN Reason: severe pain or air hunger Last Admin: 05/14/19 09:08 Dose: 10 mg Morphine Sulfate (Morphine 4 Mg/Ml Vial (1 Ml)) 8 mg IV Q4H PRN PRN Reason: Severe Pain or Dyspnea Ondansetron HCl (Zofran Inj*) 4 mg IV Q6H PRN PRN Reason: NAUSEA Oxycodone/Acetaminophen (Percocet 5/325 Tab*) 1 tab PO Q4H PRN PRN Reason: PAIN - MODERATE Last Admin: 05/12/19 09:08 Dose: 1 tab Pantoprazole Sodium (Protonix Tab*) 40 mg PO DAILY [facility] Last Admin: 05/14/19 09:10 Dose: 40 mg Prednisone (Deltasone Tab*) 10 mg PO DAILY [facility] Last Admin: 05/14/19 09:10 Dose: 10 mg Senna (Senokot 8.6 Mg Tab*) 2 tab PO BEDTIME [facility] Last Admin: 05/13/19 20:28 Dose: 2 tab Tiotropium [place] (Spiriva Respimat 2.5 Mcg) 2 puff INH DAILY [facility] Last Admin: 05/14/19 08:06 Dose: 2 puff Valacyclovir HCl (Valtrex 1 Gm(*)) 1 gm PO TID [facility]; Protocol Vital Signs - 8 hr 05/14/19 05/14/19 05/14/19 04:57 05:59 07:54 Temperature 97.8 F 98.4 F Pulse Rate 86 84 Respiratory 20 18 20 Rate Blood Pressure 147/70 152/66 (mmHg) O2 Sat by Pulse 97 94 Oximetry 05/14/19 05/14/19 05/14/19 08:06 09:08 09:09 Temperature Pulse Rate 96 Respiratory 18 36 36 Rate Blood Pressure (mmHg) O2 Sat by Pulse 96 Oximetry Oxygen Devices in Use Now: OxyMask Appearance: anxious, alert and interactive; appears to have increased WOB as anxiety increases Eyes: No Scleral Icterus Ears/Nose/Mouth/Throat: Clear Oropharnyx, Mucous Membranes Moist Neck: Trachea Midline Respiratory: Symmetrical Chest Expansion and Respiratory Effort - poor air movement but without wheeze or crackles Cardiovascular: RRR Abdominal: NL Sounds; No Tenderness; No Distention Extremities: No Edema Skin: - - 2 1cm areas of grouped vesicles on erythematous base over R back ( approx T5 dermatome) Neurological: Alert and Oriented x 3 Result Diagrams: 05/12/19 05:37 05/11/19 07:00 Assess/Plan/Problems-Billing Ms Barbosa is a 73yo F with end-stage COPD with chronic hypoxic respiratory failure on 4L O2 at home, also on morphine/lorazepam, who presents after mechanical fall with R hip fracture. s/p OR 05/10. - Patient Problems (1) Closed right hip fracture Comment: Pt went to OR 05/10/19. She will likely be ready to go back to [facility] in the next 1-2 days. On home morphine oral for pain. (2) COPD (chronic obstructive pulmonary disease) Comment: Pt with endstage COPD. Continue prednisone, morphine and ativan. Pt not wheezy or needing nebs at this time. (3) Anxiety Comment: Pt with significant anxiety at baseline. Continue SSRI and prn ativan. (4) DVT prophylaxis Current Visit: Yes Status: Acute Comment: Lovenox x30 days post-op (5) Shingles Comment: - start on Valtrex 1g tid (05/14 - 05/20) - keep skin covered with gown (6) DNR (do not resuscitate) Current Visit: Yes Status: Acute
[2019-05-14] MEDS: oxyCODONE/Acetamin 5/325 MG* TAB PO PRN (13:30)
[2019-05-14] MEDS: ValACYclovir (*) 1 GM TAB PO SCH ×2 (13:31→21:49)
[2019-05-14 13:40] LABS: Hematocrit 30 % (35-47); Hemoglobin 9.6 g/dL (12.0-16.0); Mean Corpuscular HGB Conc 32 g/dL (31-36); Mean Corpuscular Hemoglobin 29 pg (27-31); Mean Corpuscular Volume 90 fL (80-97); Platelet Count 351 10^3/uL (150-450); Red Blood Count 3.33 10^6 /uL (3.70-4.87); Red Cell Distribution Width 16 % (10-15); White Blood Count 15.4 10^3/uL (3.5-10.8)
[2019-05-14 14:12] LABS: BUN/Creatinine Ratio 22.4 (8-20); Calcium 8.9 mg/dL (8.6-10.3); EGFR African American 149.8 (>60); EGFR Non-African American 123.8 (>60); Magnesium 1.9 mg/dL (1.9-2.7); Potassium 3.8 mmol/L (3.5-5.0)
[2019-05-14] MEDS ORDERED: Magnesium Sulfate 1 GM IV* 1 GM/100 ML BAG IV ONE (17:00)
[2019-05-14] MEDS: Senna TAB 8.6 mg* TAB PO SCH (21:47)
[2019-05-15] MEDS: Mometasone/Formoter 200/5 MDI INH SCH (07:57)
[2019-05-15] MEDS: SPIRIVA Respimat* (tiotropium) 2.5 mcg/inh Inhaler INH SCH (07:58)
[2019-05-15] MEDS: Gabapentin CAP(*) 400 MG PO SCH ×3 (09:04→21:20)
[2019-05-15] MEDS: Folic Acid TAB* 1 MG PO SCH (09:04)
[2019-05-15] MEDS: predniSONE TAB* 10 MG PO SCH (09:04)
[2019-05-15] MEDS: Diltiazem TAB* 30 MG PO SCH ×2 (09:04→21:20)
[2019-05-15] MEDS: FLUoxetine CAP* 20 MG PO SCH (09:04)
[2019-05-15] MEDS: Pantoprazole TAB * 40 MG TAB PO SCH (09:04)
[2019-05-15] MEDS: Enoxaparin(*) 30 MG/0.3 ML SYR SUBCUT SCH (09:05)
[2019-05-15] MEDS: ValACYclovir (*) 1 GM TAB PO SCH ×3 (09:05→21:19)
[2019-05-15] MEDS: Morphine ORAL CONCENTRATE* 5 MG/0.25 ML ORAL.SYRIN PO PRN ×3 (09:15→21:18)
[2019-05-15] MEDS ORDERED: Albuterol/Ipratropium NEB.SOL* Albuterol 2.5 MG/Ipratropium 0.5 MG 3 ML INH PRN (10:24)
[2019-05-15] MEDS: LORazepam TAB(*) 0.5 MG PO PRN ×2 (12:04→21:20)
--- NOTE | 2019-05-15 12:05 | PN ---
Progress Note - Progress Note Date of Service: 05/15/19 SOAP: Subjective: []Pt seen and examined sitting at edge of bedside. She is comfortable, walking with max2 assist. Denies CP, SOB, dizziness, nausea.On 5 L nasal cannula O2, 4L is her home requirement Objective: []Gen: Appears well, interactive, NAD RLE: Right hip dressing changed, incision CDI without erythema. Thigh is soft. DF/PF intact, DP2+, sensation intact to light touch distally Calves supple and nontender Assessment: []POD #5: s/p right femoral neck closed reduction and internal fixation with cannulated screws. Plan: []WBAT PT/OT lovenox x 30 days post op fu ortho 2 weeks for staple removal/ post op check ready for DC from ortho standpoint Vital Signs Temp 97.5 F 05/15/19 11:45 Pulse 89 05/15/19 11:45 Resp 28 05/15/19 12:04 BP 125/71 05/15/19 11:45 Pulse Ox 94 05/15/19 11:45 Intake & Output 05/14/19 05/15/19 05/15/19 18:59 06:59 18:59 Intake Total 1300 120 Output Total 325 650 Balance -325 650 120 Intake: Oral 1300 120 Output: [place] 325 650 Other: Estimated Void Medium # Voids 1 Laboratory Last Values WBC 15.4 10^3/uL (3.5-10.8) H 05/14/19 13:10 RBC 3.33 10^6 /uL (3.70-4.87) L 05/14/19 13:10 Hgb 9.6 g/dL (12.0-16.0) L 05/14/19 13:10 Hct 30 % (35-47) L 05/14/19 13:10 MCV 90 fL (80-97) 05/14/19 13:10 MCH 29 pg (27-31) 05/14/19 13:10 MCHC 32 g/dL (31-36) 05/14/19 13:10 RDW 16 % (10-15) H 05/14/19 13:10 Plt Count 351 10^3/uL (150-450) 05/14/19 13:10 MPV 8.0 fL (7.4-10.4) 05/14/19 13:10 Neut % (Auto) 85.3 % 05/11/19 07:00 Lymph % (Auto) 3.6 % 05/11/19 07:00 [place] % (Auto) 8.8 % 05/11/19 07:00 Eos % (Auto) 1.9 % 05/11/19 07:00 Baso % (Auto) 0.4 % 05/11/19 07:00 Absolute Neuts (auto) 13.2 10^3/ul (1.5-7.7) H 05/11/19 07:00 Absolute Lymphs (auto) 0.6 10^3/ul (1.0-4.8) L 05/11/19 07:00 Absolute Monos (auto) 1.4 10^3/ul (0-0.8) H 05/11/19 07:00 Absolute Eos (auto) 0.3 10^3/ul (0-0.6) 05/11/19 07:00 Absolute Basos (auto) 0.1 10^3/ul (0-0.2) 05/11/19 07:00 Absolute Nucleated RBC 0.0 10^3/ul 05/11/19 07:00 Nucleated RBC % 0.0 05/11/19 07:00 INR (Anticoag Therapy) 1.04 (0.82-1.09) 05/10/19 06:24 APTT 25.8 seconds (26.0-38.0) L 05/10/19 13:20 Sodium 139 mmol/L (135-145) 05/14/19 13:10 Potassium 3.8 mmol/L (3.5-5.0) 05/14/19 13:10 Chloride 96 mmol/L (101-111) L 05/14/19 13:10 Carbon Dioxide 37 mmol/L (22-32) H 05/14/19 13:10 Anion Gap 6 mmol/L (2-11) 05/14/19 13:10 BUN 11 mg/dL (6-24) 05/14/19 13:10 Creatinine 0.49 mg/dL (0.51-0.95) L 05/14/19 13:10 Est GFR ( Amer) 149.8 (>60) 05/14/19 13:10 Est GFR (Non-Af Amer) 123.8 (>60) 05/14/19 13:10 BUN/Creatinine Ratio 22.4 (8-20) H 05/14/19 13:10 Glucose 163 mg/dL (70-100) H 05/14/19 13:10 POC Glucose (mg/dL) 125 mg/dL (70-100) H 05/08/19 19:53 Calcium 8.9 mg/dL (8.6-10.3) 05/14/19 13:10 Magnesium 1.9 mg/dL (1.9-2.7) 05/14/19 13:10 Total Bilirubin 0.30 mg/dL (0.2-1.0) 05/07/19 12:13 AST 22 U/L (13-39) 05/07/19 12:13 ALT 30 U/L (7-52) 05/07/19 12:13 Alkaline Phosphatase 74 U/L (34-104) 05/07/19 12:13 Total Protein 6.4 g/dL (6.4-8.9) 05/07/19 12:13 Albumin 3.8 g/dL (3.2-5.2) 05/07/19 12:13 Globulin 2.6 g/dL (2-4) 05/07/19 12:13 Albumin/Globulin Ratio 1.5 (1-3) 05/07/19 12:13 TSH 0.90 mcIU/mL (0.34-5.60) 05/08/19 05:19 Urine Color Yellow 05/07/19 22:53 Urine Appearance Cloudy 05/07/19 22:53 Urine pH 5.0 (5-9) 05/07/19 22:53 Ur Specific [place] 1.026 (1.010-1.030) 05/07/19 22:53 Urine Protein 2+(100 mg/dl) (Negative) A 05/07/19 22:53 Urine Ketones Negative (Negative) 05/07/19 22:53 Urine Blood 2+ (Negative) A 05/07/19 22:53 Urine Nitrate Negative (Negative) 05/07/19 22:53 Urine Bilirubin Negative (Negative) 05/07/19 22:53 Urine Urobilinogen Negative (Negative) 05/07/19 22:53 Ur Leukocyte Esterase Negative (Negative) 05/07/19 22:53 Urine WBC (Auto) Absent (Absent) 05/07/19 22:53 Urine RBC (Auto) 3+(>10/hpf) (Absent) A 05/07/19 22:53 Urine Bacteria Absent (Absent) 05/07/19 22:53 Urine Glucose Negative (Negative) 05/07/19 22:53 Blood Type A Positive 05/07/19 12:13 Antibody Screen Negative 05/07/19 12:13
--- NOTE | 2019-05-15 12:33 | DS ---
CC: Dr. Chandu Sorensen; Dr. Isaacs; Dr. Hagan; Dr. Petersen * DISCHARGE SUMMARY: DATE OF ADMISSION: 05/07/19 DATE OF DISCHARGE TO [facility]: 05/15/19 PRIMARY CARE PHYSICIAN: Dr. Chandu Sorensen from [facility]. DISCHARGE DIAGNOSES: 1. Status post fall resulted in right hip fracture, status post ORIF of the right hip performed by Dr. Hagan on 05/10/19. 2. Postoperative delirium that resolved. 3. Shingles that was diagnosed on 05/14/19, placed on valacyclovir. SECONDARY DIAGNOSES: 1. Severe end-stage chronic obstructive pulmonary disease, on oxygen at 4 to 5 L continuously with chronic hypoxemic respiratory failure. 2. History of chronic tachycardia. 3. History of breast cancer. 4. Anxiety. MEDICATIONS AT DISCHARGE: Include: 1. Albuterol inhaler on a p.r.n. basis. 2. Diltiazem 90 mg b.i.d. 3. Prozac 60 mg daily. 4. Breo Ellipta 200/25 one puff inhalation daily. 5. Gabapentin 400 mg 3 times a day. 6. Synthroid 50 mcg daily. 7. Singulair 10 mg daily. 8. Omeprazole 20 mg daily. 9. Senna 2 tablets at bedtime. 10. Incruse Ellipta one inhalation daily. 11. Lovenox 30 mg subcutaneous injection daily for total of 30 days postoperatively, the last day being 06/09/19. 12. Folic acid 1 mg daily. 13. Lorazepam 0.5 mg every 6 hours p.r.n. anxiety. 14. Morphine oral concentrate 10 mg every 2 hours p.r.n. discomfort, air hunger and pain. 15. Oxycodone/acetaminophen 5/325 mg one tablet every 4 hours p.r.n. 16. Prednisone 10 mg daily. 17. Valacyclovir 1 g 3 times a day with the last day being 05/21/19. 18. DuoNeb one neb every 4 hours p.r.n. shortness of breath or wheezing. DISCHARGE INSTRUCTIONS: The patient is to ambulate as tolerated. Wound care: Keep dry gauze dressings intact, change daily. Diet: Regular. DISPOSITION: Discharged to [facility] for rehabilitation. CONDITION: Stable. Upon discharge, the patient is recommended to be referred to hospice for further care and possibility of placing the patient on hospice. The patient is currently on 4 to 5 L of oxygen nasal cannula. She is recommended to be on anywhere between 2 and 4 L to keep oxygen saturations between 88 and 95%. DIAGNOSTIC STUDIES/LABORATORY DATA DURING THE HOSPITAL STAY: On 05/14/19, white blood cell count 15.4, hemoglobin of 9.6, hematocrit of 30 and platelets 351. Sodium of 139, potassium of 3.8, chloride 96, carbon dioxide 37, BUN 11, creatinine 0.5. PROCEDURES PERFORMED DURING THE HOSPITAL STAY: ORIF of the right hip performed by Dr. Hagan on 05/10/19 with procedure description of "closed reduction and internal fixation of the right femoral neck hip fracture with cannulated screws. " RECOMMENDATIONS TO FOLLOW UP: The patient is recommended to follow up with primary care provider at [facility] in 1 to 3 days. She is recommended a referral to hospice as soon as possible upon discharge. Recommend followup with Dr. Hagan in approximately 7 days after discharge for orthopedic followup of the right hip fracture. HOSPITALIZATION COURSE: Carole Barbosa is a 73-year-old female with history of end - stage COPD, who was placed in [facility] where she used to live in independent living approximately 2-1/2 months ago. Since then she was in the hospital at the end of March 2019 with COPD exacerbation. She was discharged on prednisone taper and she was on prednisone continuously when she was admitted to our hospital on 05/07/19 after a fall. She fractured her right femoral neck. She was admitted and an ORIF of the right hip was performed on 05/10/[address] Hagan. The patient was noted to be postoperatively delirious and transiently in the intensive care unit which resolved. The patient was also noted to have severe COPD with need of oxygen use as well as morphine for air hunger as well as Ativan for anxiety. We had a long discussion with the patient about the need of hospice. The patient stated that she does not want any aggressive measures and she wishes to be hospice but on the other hand, she is also afraid that if she has an exacerbation, she will not be able to go to the hospital as needed. I did talk with the patient that she would benefit from hospice and that she should definitely talk with them. If she ever wishes to go back to the hospital, she could go but at that point, it would be likely that the hospice coverage would be canceled. The patient is aware of that and is interested in proceeding with placement of hospice while in [facility]. The patient also developed shingles that was diagnosed on 05/14/19 and was placed on valaciclovir which is to be continued for a total of 7 days. At that point, she is recommended to have contact precautions. The lesions are not scabbed and she should also be on airborne precautions. She is going to have a private room at [facility]. PHYSICAL EXAMINATION AT THE TIME OF DISCHARGE: Blood pressure is 130/70, heart rate of 78 and regular, respiratory rate 15, oxygen saturation 99% on 5 L of oxygen via nasal cannula and temperature 97.6. General: The patient is a very pleasant 73-year-old female who is mildly tachypneic but in no acute distress. The patient is alert and oriented x2. She is unaware of specific day of month and her recall is poor. HEENT: Head atraumatic, normocephalic. Eyes: Pupils are equal and reactive to light and accommodation. Oropharynx is clear. Mucosa moist. Neck: Supple, no JVD, no bruits bilaterally. Cardiovascular: Regular rate and rhythm, tachycardia, no murmur. Respiratory: Wheezes in bilateral mid lungs, barreled chest, decreased breath sounds at bilateral bases noted. Abdomen: Soft, nontender. Bowel sounds are present in all 4 quadrants. Extremities: There is no edema. Pulses are +2 bilaterally. No clubbing or cyanosis. On evaluation of the skin, the patient's right hip incision is going to be evaluated by the orthopedic service prior to discharge. Currently, covered with gauze. There is no evidence of surrounding wound hematoma or cellulitis. In regards to patient's back, the patient has shingles overlying the left subscapular region, not crossing to the right, and no lesions anteriorly were noted. The lesions are approximately 2 or 4 of them blistering, no evidence of eschar or crusting. Neurologic: Speech is clear. Cranial nerves II through XII grossly intact. Motor strength is 5/5 bilaterally. The patient is going to be discharged to [facility] for further rehabilitation and possibility of hospice care. Her respiratory status had been very poor and that is her baseline. Once again , she would benefit greatly from hospice. Please note that this is a very short summary of patient's hospitalization. Please refer to further medical records for details. TIME SPENT: Approximately 50 minutes was spent on the patient's discharge. [id number]/CPS #: [id number] MTDD
[2019-05-15] MEDS: Senna TAB 8.6 mg* TAB PO SCH (21:19)
[2019-05-15] MEDS: Magnesium Hydroxide LIQ* 30 ML UDC PO PRN (21:25)
[2019-05-16] MEDS: SPIRIVA Respimat* (tiotropium) 2.5 mcg/inh Inhaler INH SCH (08:29)
[2019-05-16] MEDS: Mometasone/Formoter 200/5 MDI INH SCH (08:29)
[2019-05-16] MEDS: predniSONE TAB* 10 MG PO SCH (09:42)
[2019-05-16] MEDS: FLUoxetine CAP* 20 MG PO SCH (09:42)
[2019-05-16] MEDS: ValACYclovir (*) 1 GM TAB PO SCH (09:42)
[2019-05-16] MEDS: Pantoprazole TAB * 40 MG TAB PO SCH (09:42)
[2019-05-16] MEDS: Gabapentin CAP(*) 400 MG PO SCH (09:42)
[2019-05-16] MEDS: Folic Acid TAB* 1 MG PO SCH (09:42)
[2019-05-16] MEDS: Diltiazem TAB* 30 MG PO SCH (09:43)
[2019-05-16] MEDS: Morphine ORAL CONCENTRATE* 5 MG/0.25 ML ORAL.SYRIN PO PRN ×2 (09:43→12:29)
[2019-05-16] MEDS: Enoxaparin(*) 30 MG/0.3 ML SYR SUBCUT SCH (09:43)
[2019-05-16 11:33] VITALS: BP 120/78
== END 2019-05-16 13:30 | DRG 481 ==
LOC: ED 11:18 → SSU 13:21 → ICU 05-08 16:41 → SSU 05-11 10:27
PROVIDERS: ADMIT Hospitalist; ATTEND Internal Medicine
PROC: 0QS634Z Reposition Right Upper Femur with Internal Fixation Device, Percutaneous Approach (ICD-10-PCS; principal; 2019-05-07)
PROC: 5A09357 Assistance with Respiratory Ventilation, Less than 24 Consecutive Hours, Continuous Positive Airway Pressure (ICD-10-PCS; 2019-05-14)
DX: S72.001A Fracture of unspecified part of neck of right femur, initial encounter for closed fracture (principal); J96.11 Chronic respiratory failure with hypoxia; F05 Delirium due to known physiological condition; J44.9 Chronic obstructive pulmonary disease, unspecified; F41.9 Anxiety disorder, unspecified; M21.051 Valgus deformity, not elsewhere classified, right hip; B02.9 Zoster without complications; R00.0 Tachycardia, unspecified; E03.9 Hypothyroidism, unspecified; Z66 Do not resuscitate; D72.829 Elevated white blood cell count, unspecified; W18.30XA Fall on same level, unspecified, initial encounter; Y92.129 Unspecified place in nursing home as the place of occurrence of the external cause; Z88.2 Allergy status to sulfonamides; Z91.040 Latex allergy status; Z87.891 Personal history of nicotine dependence; Z99.81 Dependence on supplemental oxygen; Z85.3 Personal history of malignant neoplasm of breast; Z82.49 Family history of ischemic heart disease and other diseases of the circulatory system; Z82.3 Family history of stroke; Z80.0 Family history of malignant neoplasm of digestive organs; Z79.899 Other long term (current) drug therapy; Z79.52 Long term (current) use of systemic steroids; F32.9 Major depressive disorder, single episode, unspecified
CPT/HCPCS: 36415; 71045; 76000; 80048; 80053; 81003; 81015; 83735; 84443; 85025; 85027; 85610; 85730; 86850; 86900; 86901; 93005; 94640; 94660; 99284; A9270-GY; C1713; G8978-GP-CN; G8979-GP-CK; G8987-GO-CN; J0690; J1644; J1650; J2060; J2250; J2270; J2704; J2930; J3010; J3475; J3490; J3535; J7512

== ENCOUNTER 2019-06-01 20:29 | Emergency (ER) | payer MEDICARE, MEDICAID ==
--- NOTE | 2019-06-01 20:50 | ED ---
Adult Trauma - HPI Summary HPI Summary: This patient is a 73 year old female presenting to [facility] with a chief complaint of left hip pain after a mechanical fall. She states she fell and she landed on her hip. She states she hit her head on the wall. She states she recently had surgery on her other hip. She rates her pain 6/10 in severity. - History of Current Complaint Chief Complaint: EDFall Stated Complaint: FALL PER EMS Time Seen by Provider: 06/01/19 20:43 Hx Obtained From: Patient Mechanism of Injury: Fall Loss of Consciousness: no loss of consciousness Onset/Duration: Started Minutes Ago Pain Intensity: 8 Pain Scale Used: 0-10 Numeric - Additional Pertinent History Primary Care Physician: DACIA - Allergy/Home Medications Allergies/Adverse Reactions: Allergies Allergy/AdvReac Type Severity Reaction Status Date / Time latex Allergy Unknown Verified 06/04/19 19:41 Reaction Details Sulfa (Sulfonamide Allergy Unknown Verified 06/04/19 19:41 Antibiotics) Reaction Details acetaminophen [From Percocet] AdvReac Vomiting Verified 06/04/19 19:41 oxycodone [From Percocet] AdvReac Vomiting Verified 06/04/19 19:41 Home Medications: Home Medications Diltiazem TAB* [Cardizem 30 MG Tab*] 90 mg PO BID 06/01/19 [History Confirmed ] FLUoxetine CAP* [PROzac CAP*] 60 mg PO DAILY 06/01/19 [History Confirmed ] Gabapentin CAP(*) [Neurontin 400 mg CAP(*)] 400 mg PO TID 06/01/19 [History Confirmed 06/01/19] Omeprazole CAP (NF) [Prilosec CAP* 20 MG] 20 mg PO DAILY 06/01/19 [History Confirmed 06/01/19] Sennosides/Docusate Sodium [Senna Plus 8.6-50 mg Tablet] 2 each PO BEDTIME 06/01 [History Confirmed 06/01/19] Umeclidinium 62.5 MDI(NF) [Incruse ELLIPTA MDI (NF)] 1 puff INH DAILY 06/01/19 [ History Confirmed 06/01/19] PMH/Surg Hx/FS Hx/Imm Hx Endocrine/Hematology History: Reports: Hx Thyroid Disease, Hx Anemia Cardiovascular History: Reports: Hx Hypertension Denies: Other Cardiovascular Problems/Disorders - Tachycardia Respiratory History: Reports: Hx Chronic Obstructive Pulmonary Disease (COPD), Hx Pneumonia Denies: Hx Sleep Apnea - Daughter states pt needs sleep test GI History: Reports: Hx Gastroesophageal Reflux Disease Musculoskeletal History: Reports: Hx Arthritis Sensory History: Reports: Hx Contacts or Glasses Denies: Hx Hearing Aid Opthamlomology History: Reports: Hx Contacts or Glasses Psychiatric History: Reports: Hx Anxiety, Hx Depression - Cancer History Cancer Type, Location and Year: Breast Cancer - Surgical History Surgery Procedure, Year, and Place: Lumpectomy L breast and lymph node removal- 13 years ago Infectious Disease History: No Infectious Disease History: Reports: Hx of Known/Suspected MRSA Denies: Traveled Outside the [place] in Last 30 Days - Family History Known Family History: Negative: Seizure Disorder - Social History Alcohol Use: None Hx Substance Use: No Substance Use Type: Reports: None Hx Tobacco Use: Yes Smoking Status (MU): Former Smoker Type: Cigarettes Length of Time of Smoking/Using Tobacco: 50 years 2 packs per day Have You Smoked in the Last Year: No Review of Systems Negative: Fever, Chills Negative: Palpitations Negative: Shortness Of Breath All Other Systems Reviewed And Are Negative: No Physical Exam Vital Signs On Initial Exam: Initial Vitals Temp Pulse Resp BP Pulse Ox 99.6 F 108 22 162/97 99 06/01/19 20:32 06/01/19 20:32 06/01/19 20:32 06/01/19 20:32 06/01/19 20:32 Procedures - Sedation Patient Received Moderate/Deep Sedation with Procedure: No Diagnostics - Vital Signs Vital Signs Temp Pulse Resp BP Pulse Ox 06/01/19 20:32 99.6 F 108 22 162/97 99 - Laboratory Lab Statement: Any lab studies that have been ordered have been reviewed, and results considered in the medical decision making process. - Radiology Hip/Pelvis XR Radiology Interpretation Completed By: ED Physician Summary of Radiographic Findings: No fractures. Pending official radiologist report. - CT Brain CT Interpretation Completed By: Radiologist Summary of CT Findings: 1. There is agre realted diffuse cerebral and cerebellar volume loss and chronic microvascular ischemic disease. 2. No acute intracranial pathology. ED Provider has reviewed this report. Adult Trauma Course/Dx - Course Course Of Treatment: This patient is a 73 year old female presenting to [facility] with a chief complaint of left hip pain after a mechanical fall. Imaging was unremarkable for any acute process or fracture. A plan for discharge was discussed with the patient and she was agreeable with this plan. - Diagnoses Provider Diagnoses: Contusion, hip Discharge ED - Sign-Out/Discharge Documenting (check all that apply): Patient Departure - Discharge Patient Received Moderate/Deep Sedation with Procedure: No - Discharge Plan Condition: Good Disposition: HOME Patient Education Materials: Fall Prevention for Older Adults (ED), Hip Contusion (ED) Referrals: Nallely Clarke MD [Primary Care Provider] - If Needed - Billing Disposition and Condition Condition: GOOD Disposition: Home - Attestation Statements Document Initiated by Anthony: Yes Documenting Sharronibe: Shane Vazquez Provider For Whom Anthony is Documenting (Include Credential): Marco Samuel MD Scribe Attestation: Shane Carter scribed for Marco Samuel MD on 06/07/19 at 1852. Scribe Documentation Reviewed: Yes Provider Attestation: The documentation as recorded by the Shane morton accurately reflects the service I personally performed and the decisions made by , Marco Samuel MD Status of Scribkeyur Document: Viewed
--- OUTSIDE RECORDS SUMMARY | 2019-06-01 21:00 | XMS REPORT | Continuity of Care Document ---
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 Family Medicine Problems Description No Information Available Social History Type Date Description Comments Sex Unknown Tobacco Use Start: Unknown End: Unknown Patient is a former smoker Smoking Status Reviewed: 05/24/19 Patient is a former smoker Allergies, Adverse Reactions, Alerts Description No Known Drug Allergies Medications Active Medications SIG Qnty Indications Ordering Date Provider Albuterol Sulfate 1 unit dose via Unknown nebulizer every 4 (2.5mg/3ML) 0.083% hours as needed Nebulizer Ativan 1 tab by mouth Unknown 0.5mg Tablets every 6 hours as needed for anxiety Breo Ellipta one inhalation Unknown daily 200-25mcg/Inh Aerosol Diltiazem HCL 1 tab by mouth Unknown 90mg twice daily Tablets Folic Acid take one Unknown 1mg Tablets capsule/tablet daily by mouth Gabapentin take one capsule by Unknown 400mg Capsules mouth 3 times a day Incruse Ellipta inhale one puff by Unknown mouth every day 62.5mcg/Inh Aerosol Levothyroxine Sodium 1 by mouth every Unknown day 50mcg Tablets Lovenox once a day as Unknown 30mg/0.3ML directed Solution Morphine Sulfate as directed Unknown (Concentrate) 100mg/5ML Solution Omeprazole 1 by mouth every Unknown 20mg Capsules day DR Coradoaminophkeyur 1 tabs by mouth Unknown n every 4-6 hours as 5-325mg Tablets needed for pain Prednisone 1 tab by mouth once Unknown 10mg Tablets daily Fluoxetine HCL 3 caps by mouth Unknown 20mg every day Capsules Senna take 2 tablets by Unknown 8.6mg Tablets mouth every day as needed Singulair 1 by mouth every Unknown 10mg Tablets day Immunizations Description No Information Available Vital Signs Date Vital Result Comment 05/24/2019 1:32pm Height 64 inches 5'4" Weight 134.00 lb Heart Rate 70 /min BP Systolic Sitting 124 mmHg BP Diastolic Sitting 70 mmHg Respiratory Rate 16 /min Pain Level 7 O2 % BldC Oximetry 94 % BMI (Body Mass Index) 23.0 kg/m2 Results Description No Information Available Procedures Date Code Description Status 05/10/2019 30515 Percutaneous TX Of Femoral FX Completed 04/02/2019 96883 ECHO Transthorasic Realtime 2D W Doppler & Color Flow Hosp Completed Medical Devices Description No Information Available Encounters Type Date Location Provider Dx Diagnosis Office Visit 05/14/2019 [facility] Alejandra Martinez, J96.11 Chronic 9:13a julia Elise MD respiratory Hospitalists failure with hypoxia F41.9 Anxiety disorder, unspecified B02.9 Zoster without complications Office Visit 05/13/2019 [facility] D72.829 Elevated white 9:12a Assjulia wallace, D.O. blood cell count, Hospitalists unspecified J96.11 Chronic respiratory failure with hypoxia F41.9 Anxiety disorder, unspecified Office Visit 05/12/2019 [facility] R41.0 Disorientation, 9:12a julia Elise, D.O. unspecified Hospitalists F41.9 Anxiety disorder, unspecified J44.9 Chronic obstructive pulmonary disease, unspecified D72.829 Elevated white blood cell count, unspecified Office Visit 05/08/2019 9:09a [facility] Alejandra S72.001A Fracture of julia Elise MD unsp part of Hospitalists neck of right femur, init J96.11 Chronic respiratory failure with hypoxia J44.9 Chronic obstructive pulmonary disease, unspecified F41.9 Anxiety disorder, unspecified Office Visit 05/08/2019 2:59p Pulmonology And Maryann J44.9 Chronic Sleep Services Of MD Meme obstructive Driver Medic pulmonary disease, unspecified J96.11 Chronic respiratory failure with hypoxia S72.91xA Unsp fracture of right femur, init for clos fx F41.9 Anxiety disorder, unspecified W19.xxxA Unspecified fall, initial encounter Office Visit 05/07/2019 9:04a [facility] Anabell S72.001A Fracture of Assoc,julia Matamoros D.O. unsp part of Hospitalists neck of right femur, init J96.11 Chronic respiratory failure with hypoxia N18.6 End stage renal disease W19.xxxA Unspecified fall, initial encounter Office Visit 05/07/2019 2:58p Orthopedic Dennise Isaacs, S72.042A Disp fx of Services Of Yvette Ponce base of neck of left femur, init for clos fx W19.xxxA Unspecified fall, initial encounter Office Visit 04/04/2019 [facility] Rossy J96.21 Acute and chronic 8:58a Assocjulia PA-C respiratory Hospitalists failure with hypoxia J44.1 Chronic obstructive pulmonary disease w (acute) exacerbation R74.8 Abnormal levels of other serum enzymes Office Visit 04/03/2019 [facility] Rossy J96.21 Acute and chronic 8:57a Assocjulia PA-C respiratory Hospitalists failure with hypoxia R74.8 Abnormal levels of other serum enzymes Office Visit 04/03/2019 8:56a Palliative Care Nadine J44.1 Chronic Services Of Lilli Bello MD obstructive pulmonary disease w (acute) exacerbation R00.0 Tachycardia, unspecified Office Visit 04/02/2019 [facility] Shawna Ariza J44.1 Chronic 8:54a Assjulia wallace M.D. obstructive Hospitalists pulmonary disease w (acute) exacerbation R74.8 Abnormal levels of other serum enzymes D72.89 Other specified disorders of white blood cells D47.3 Essential (hemorrhagic) thrombocythemia Office Visit 04/01/2019 8:53a [facility] Anabell J44.1 Chronic Assoc,julia Matamoros D.O. obstructive Hospitalists pulmonary disease w (acute) exacerbation R06.03 Acute respiratory distress R09.02 Hypoxemia Assessments Date Code Description Provider 05/24/2019 S72.001A Fracture of unspecified part of neck of Cuauhtemoc Hagan MD right femur, initial encounter for closed fracture 05/15/2019 S72.001A Fracture of unspecified part of neck of Shawna Ariza M.D. right femur, initial encounter for closed fracture 05/15/2019 F05 Delirium due to known physiological Shawna Ariza M.D. condition 05/15/2019 J96.11 Chronic respiratory failure with hypoxia Shawna Ariza M.D. 05/15/2019 B02.9 Zoster without complications Shawna Ariza M.D. 05/14/2019 J96.11 Chronic respiratory failure with hypoxia Alejandra Martinez MD 05/14/2019 F41.9 Anxiety disorder, unspecified Alejandra Martinez MD 05/14/2019 B02.9 Zoster without complications Alejandra Martinez MD 05/13/2019 D72.829 Elevated white blood cell count, Anabell Saturnino, D.O. unspecified 05/13/2019 J96.11 Chronic respiratory failure with hypoxia Anabell Saturnino, D.O. 05/13/2019 F41.9 Anxiety disorder, unspecified Anabell Saturnino, D.O. 05/12/2019 R41.0 Disorientation, unspecified Anabell Saturnino, D.O. 05/12/2019 F41.9 Anxiety disorder, unspecified Anabell Saturnino, D.O. 05/12/2019 J44.9 Chronic obstructive pulmonary disease, Anabell Saturnino, D.O. unspecified 05/12/2019 D72.829 Elevated white blood cell count, Anabell Saturnino, D.O. unspecified 05/10/2019 S72.001A Fracture of unspecified part of neck of Cuauhtemoc Hagan MD right femur, initial encounter for closed fracture 05/10/2019 J44.9 Chronic obstructive pulmonary disease, Rishi Petersen M.D. unspecified 05/10/2019 F41.9 Anxiety disorder, unspecified Rishi Petersen M.D. 05/09/2019 S72.001A Fracture of unspecified part of neck of Rishi Petersen M.D. right femur, initial encounter for closed fracture 05/09/2019 J44.9 Chronic obstructive pulmonary disease, Rishi Petersen M.D. unspecified 05/09/2019 D72.829 Elevated white blood cell count, Rishi Petersen M.D. unspecified 05/09/2019 F41.9 Anxiety disorder, unspecified Rishi Petersen M.D. 05/08/2019 S72.001A Fracture of unspecified part of neck of Alejandra Martinez MD right femur, initial encounter for closed fracture 05/08/2019 J44.9 Chronic obstructive pulmonary disease, Maryann Valentine MD unspecified 05/08/2019 J96.11 Chronic respiratory failure with hypoxia Alejandra Martinez MD 05/08/2019 J44.9 Chronic obstructive pulmonary disease, Alejandra Martinez MD unspecified 05/08/2019 J96.11 Chronic respiratory failure with hypoxia Maryann Valentine MD 05/08/2019 F41.9 Anxiety disorder, unspecified Alejandra Martinez MD 05/08/2019 S72.91xA Unspecified fracture of right femur, Maryann Valentine MD initial encounter for closed fracture 05/08/2019 F41.9 Anxiety disorder, unspecified Maryann Valentine MD 05/08/2019 W19.xxxA Unspecified fall, initial encounter Maryann Valentine MD 05/07/2019 S72.001A Fracture of unspecified part of neck of Elver Yanez.O. right femur, initial encounter for closed fracture 05/07/2019 S72.042A Displaced fracture of base of neck of left Dennise Isaacs M.D. femur, initial encounter for closed fracture 05/07/2019 J96.11 Chronic respiratory failure with hypoxia Elver Yanez.O. 05/07/2019 W19.xxxA Unspecified fall, initial encounter Dennise Isaacs M.D. 05/07/2019 N18.6 End stage renal disease Geena YanezO. 05/07/2019 W19.xxxA Unspecified fall, initial encounter Elver Yanez.O. 04/04/2019 J96.21 Acute and chronic respiratory failure with Rossy Ibrahim PA-C hypoxia 04/04/2019 J44.1 Chronic obstructive pulmonary disease with Rossy Ibrahim PA-C (acute) exacerbation 04/04/2019 R74.8 Abnormal levels of other serum enzymes KAUR Saldivar 04/03/2019 J96.21 Acute and chronic respiratory failure with Rossy Ibrahim PA-C hypoxia 04/03/2019 J44.1 Chronic obstructive pulmonary disease with Nadine Bello MD (acute) exacerbation 04/03/2019 R74.8 Abnormal levels of other serum enzymes KAUR Saldivar 04/03/2019 R00.0 Tachycardia, unspecified Nadine Bello MD 04/02/2019 J44.1 Chronic obstructive pulmonary disease with Shawna Ariza M.D. (acute) exacerbation 04/02/2019 R06.02 Shortness of breath Dc Patterson M.D. 04/02/2019 R74.8 Abnormal levels of other serum enzymes Shawna Ariza M.D. 04/02/2019 D72.89 Other specified disorders of white blood Shawna Ariza M.D. cells 04/02/2019 D47.3 Essential (hemorrhagic) thrombocythemia Shawna Ariza M.D. 04/01/2019 J44.1 Chronic obstructive pulmonary disease with Anabell Matamoros D.O. (acute) exacerbation 04/01/2019 R06.03 Acute respiratory distress Anabell Matamoros D.O. 04/01/2019 R09.02 Hypoxemia Anabell Matamoros D.O. Plan of Treatment Future Appointment(s):06/22/2019 2:15 pm - Cuauhtemoc Hagan MD at [facility]05/24/2019 - KAROL Figueroa72.001A Fracture of unspecified part of neck of right femur, initial encounter for closed fractureNew Xrays:Hip Right 2 Views And Pelvis [id number] - [id number], Ordered: Follow up:Follow Up: 4 weeks Functional Status Description No Information Available Mental Status Description No Information Available Referrals Description No Information Available
--- OUTSIDE RECORDS SUMMARY | 2019-06-01 21:00 | XMS REPORT | Continuity of Care Document ---
:1945 External Reference #:[id number] Author Name Rossy Guallpa Care Team Providers Name Role Phone Anabell Matamoros D.O. Care Team Information [employer] Unavailable Payers Date Identification Numbers Payment Provider Subscriber Policy Number: [id number] Medicare Carole Barbosa PayID: [id number] [facility] [address] [place] [address] Social History Type Date Description Comments Sex Unknown
[2019-06-01] MEDS ORDERED: Ibuprofen TAB* 400 MG PO ONE (23:05)
[2019-06-01 23:14] VITALS: BP 128/82
== END 2019-06-01 23:12 | disposition home or self-care (01) ==
LOC: ED 20:29
DX: S70.02XA Contusion of left hip, initial encounter (principal); W19.XXXA Unspecified fall, initial encounter; Y92.9 Unspecified place or not applicable; E07.9 Disorder of thyroid, unspecified; D64.9 Anemia, unspecified; I10 Essential (primary) hypertension; J44.9 Chronic obstructive pulmonary disease, unspecified; K21.9 Gastro-esophageal reflux disease without esophagitis; F41.9 Anxiety disorder, unspecified; F32.9 Major depressive disorder, single episode, unspecified; Z88.5 Allergy status to narcotic agent; Z88.2 Allergy status to sulfonamides; Z85.3 Personal history of malignant neoplasm of breast; Z88.6 Allergy status to analgesic agent; Z91.040 Latex allergy status; Z79.899 Other long term (current) drug therapy; Z87.891 Personal history of nicotine dependence; M85.88 Other specified disorders of bone density and structure, other site
CPT/HCPCS: 70450; 99283; A9270-GY

== ENCOUNTER 2019-06-04 19:32 | Inpatient (IN) | payer MEDICARE, MEDICAID ==
[2019-06-04] MEDS ORDERED: Nitroglycerin TAB 0.4 MG* 0.4 MG TAB SL ONE ×2 (19:43→20:28)
[2019-06-04] MEDS ORDERED: Albuterol 2.5 MG/3 ML NEB.SOL* (0.083%) INH ONE ×2 (19:52→20:09)
[2019-06-04] MEDS ORDERED: Albuterol/Ipratropium NEB.SOL* Albuterol 2.5 MG/Ipratropium 0.5 MG 3 ML ONE (19:52)
[2019-06-04 19:56] LABS: ABS Basophils 0.1 10^3/ul (0-0.2); ABS Eosinophils 0.2 10^3/ul (0-0.6); ABS Lymphocytes 0.6 10^3/ul (1.0-4.8); ABS Monocytes 1.4 10^3/ul (0-0.8); ABS Neutrophils 16.3 10^3/ul (1.5-7.7); Eosinophil % 0.8 %; Hematocrit 33 % (35-47); Hemoglobin 10.6 g/dL (12.0-16.0); Lymphocyte % 3.2 %; Mean Corpuscular HGB Conc 32 g/dL (31-36); Mean Corpuscular Hemoglobin 29 pg (27-31); Mean Corpuscular Volume 90 fL (80-97); Mean Platelet Volume 7.4 fL (7.4-10.4); Platelet Count 385 10^3/uL (150-450); Red Blood Count 3.65 10^6 /uL (3.70-4.87); Red Cell Distribution Width 16 % (10-15); White Blood Count 18.5 10^3/uL (3.5-10.8)
[2019-06-04 20:04] LABS: INR 1.19 (0.82-1.09)
[2019-06-04] MEDS ORDERED: Albuterol/Ipratropium NEB.SOL* Albuterol 2.5 MG/Ipratropium 0.5 MG 3 ML INH ONE (20:09)
[2019-06-04] MEDS ORDERED: Piperacillin/Tazobac ADVAN(*) 3.375 GM in NS 0.9% 100 ML* 100 ML IVPB ONE (20:12)
[2019-06-04 20:13] LABS: ALT 32 U/L (7-52); AST 28 U/L (13-39); Albumin 4.1 g/dL (3.2-5.2); Albumin/Globulin Ratio 1.3 (1-3); Alkaline Phosphatase 112 U/L (34-104); Anion Gap 9 mmol/L (2-11); BUN/Creatinine Ratio 35.8 (8-20); Blood Urea Nitrogen 24 mg/dL (6-24); CO2 Carbon Dioxide 35 mmol/L (22-32); Calcium 9.7 mg/dL (8.6-10.3); Chloride 91 mmol/L (101-111); EGFR African American 104.4 (>60); EGFR Non-African American 86.3 (>60); Globulin 3.2 g/dL (2-4); Glucose 182 mg/dL (70-100); Potassium 3.6 mmol/L (3.5-5.0); Sodium 135 mmol/L (135-145); Total Protein 7.3 g/dL (6.4-8.9)
--- NOTE | 2019-06-04 20:13 | ED ---
Shortness of Breath - HPI Summary HPI Summary: Pt is a 74 y/o F w hx COPD on 4-5L O2 at home, presenting to the ED brought in by EMS for shortness of breath. She lives at [facility] and her SOB has reportedly increased over the past day or so. EMS reports some wheezing, and her SaO2 was 88% on room air. She was given two duonebs and placed on O2, and her SaO2 went up to 98-99%. Her last BP taken by EMS was 219/94. The pt denies fever. Hx limited by respiratory distress. Of note patient admitted earlier this month for R hip fracture after a fall. Pts daughter states that the pts room was cleaned with bleach on 05/31/19 which initially caused problems with her breathing. She received 40mg Prednisone today. - History of Current Complaint Chief Complaint: EDRespiratoryDistress Time Seen by Provider: 06/04/19 19:42 Hx Obtained From: Patient, EMS Hx From Patient Unobtainable Due To: Other - respiratory complaint Onset/Duration: Gradual Onset, Lasting Days, Still Present Timing: Constant Current Severity: Moderate Dyspnea At: Rest Aggravating Factors: Nothing Alleviating Factors: Nothing Associated Signs & Symptoms: Negative - Allergy/Home Medications Allergies/Adverse Reactions: Allergies Allergy/AdvReac Type Severity Reaction Status Date / Time latex Allergy Unknown Verified 06/04/19 19:41 Reaction Details Sulfa (Sulfonamide Allergy Unknown Verified 06/04/19 19:41 Antibiotics) Reaction Details acetaminophen [From Percocet] AdvReac Vomiting Verified 06/04/19 19:41 oxycodone [From Percocet] AdvReac Vomiting Verified 06/04/19 19:41 Home Medications: Home Medications Azithromycin 500 mg PO DAILY 06/04/19 [History Confirmed 06/04/19] Fluticasone/Vilanterol MDI(NF) [Breo Ellipta MDI 200/25(NF)] 1 puff INH DAILY [History Confirmed 06/04/19] Folic Acid TAB* [Folvite TAB*] 1 mg PO QAM 06/04/19 [History Confirmed 06/04/19] predniSONE TAB* [Deltasone 20 MG TAB*] 40 mg PO DAILY 06/04/19 [History Confirmed 06/04/19] PMH/Surg Hx/FS Hx/Imm Hx Previously Healthy: Yes Endocrine/Hematology History: Reports: Hx Anticoagulant Therapy, Hx Thyroid Disease, Hx Anemia Cardiovascular History: Reports: Hx Hypertension Denies: Other Cardiovascular Problems/Disorders - Tachycardia Respiratory History: Reports: Hx Chronic Obstructive Pulmonary Disease (COPD), Hx Pneumonia Denies: Hx Sleep Apnea - Daughter states pt needs sleep test GI History: Reports: Hx Gastroesophageal Reflux Disease Musculoskeletal History: Reports: Hx Arthritis Sensory History: Reports: Hx Contacts or Glasses Denies: Hx Hearing Aid Opthamlomology History: Reports: Hx Contacts or Glasses Psychiatric History: Reports: Hx Anxiety, Hx Depression - Cancer History Cancer Type, Location and Year: Breast Cancer - Surgical History Surgery Procedure, Year, and Place: Lumpectomy L breast and lymph node removal- 13 years ago Infectious Disease History: No Infectious Disease History: Reports: Hx of Known/Suspected MRSA Denies: Traveled Outside the [place] in Last 30 Days - Family History Known Family History: Negative: Seizure Disorder - Social History Alcohol Use: None Hx Substance Use: No Substance Use Type: Reports: None Hx Tobacco Use: Yes Smoking Status (MU): Former Smoker Type: Cigarettes Length of Time of Smoking/Using Tobacco: 50 years 2 packs per day Have You Smoked in the Last Year: No Review of Systems Negative: Fever Positive: Shortness Of Breath All Other Systems Reviewed And Are Negative: Yes Physical Exam - Summary Physical Exam Summary: Constitutional: Moderate distress, ill-appearing Skin: Warm, Dry. Large hematoma to R hand from IV stick HENT: Normocephalic; Atraumatic Eyes: Conjunctiva normal Neck: Musculoskeletal ROM normal neck. (+) JVD, (-) Stridor, (-) Nuchal rigidity Cardio: Rhythm regular, rate normal, Heart sounds normal; Intact distal pulses; Radial pulses are 2+ and symmetric. (-) Murmur Pulmonary/Chest wall: Bilateral rhonchi, increased labored breathing, on BiPAP Abd: Soft, (-) tenderness, (-) Distension, (-) Guarding, (-) Rebound Musculoskeletal: (-) Edema, tenderness to R hip when moved Lymph: (-) Cervical adenopathy Neuro: Alert, Oriented x3 Psych: deferred Triage Information Reviewed: Yes Vital Signs On Initial Exam: Initial Vitals Temp Pulse Resp BP Pulse Ox 98.1 F 124 30 219/106 95 06/04/19 19:37 06/04/19 19:37 06/04/19 19:37 06/04/19 19:37 06/04/19 19:37 Vital Signs Reviewed: Yes Diagnostics - Vital Signs Vital Signs Temp Pulse Resp BP Pulse Ox 06/04/19 19:48 135 39 97 06/04/19 19:37 98.1 F 124 30 219/106 95 - Laboratory Lab Results: Lab Results 06/04/19 06/04/19 06/04/19 Range/Units 19:48 19:48 19:48 WBC 18.5 H (3.5-10.8) 10^3/uL RBC 3.65 L (3.70-4.87) 10^6 /uL Hgb 10.6 L (12.0-16.0) g/dL Hct 33 L (35-47) % MCV 90 (80-97) fL MCH 29 (27-31) pg MCHC 32 (31-36) g/dL RDW 16 H (10-15) % Plt Count 385 (150-450) 10^3/uL MPV 7.4 (7.4-10.4) fL Neut % (Auto) 87.9 % Lymph % (Auto) 3.2 % [place] % (Auto) 7.3 % Eos % (Auto) 0.8 % Baso % (Auto) 0.8 % Absolute Neuts (auto) 16.3 H (1.5-7.7) 10^3/ul Absolute Lymphs (auto) 0.6 L (1.0-4.8) 10^3/ul Absolute Monos (auto) 1.4 H (0-0.8) 10^3/ul Absolute Eos (auto) 0.2 (0-0.6) 10^3/ul Absolute Basos (auto) 0.1 (0-0.2) 10^3/ul Absolute Nucleated RBC 0.0 10^3/ul Nucleated RBC % 0.0 INR (Anticoag Therapy) 1.19 H (0.82-1.09) VBG pH 7.35 (7.32-7.43) VBG pCO2 66 H (41-51) mmHg VBG pO2 73.0 H (35-45) mmHg VBG HCO3 31.3 H (24-28) mmol/L VBG O2 Saturation 95.2 H (70-80) % VBG Base Excess 8.3 H (0.0-4.0) mmol/L Result Diagrams: 06/04/19 19:48 06/05/19 00:34 Lab Statement: Any lab studies that have been ordered have been reviewed, and results considered in the medical decision making process. - Radiology CXR Radiology Interpretation Completed By: Radiologist Summary of Radiographic Findings: Chronic interstitial disease. Increased L upper opacity. Pending official radiology report. - EKG 1957 Cardiac Rate: Tachycardia - 125bpm EKG Rhythm: Sinus Tachycardia ST Segment: Normal Ectopy: None Summary of EKG Findings: EKG at 1957 shows sinus tachycardia at 125bpm. Nml axis , nml intervals. No STEMI. No acute changes. Re-Evaluation - Re-Evaluation 1st re-eval Re-Evaluation Time: 19:48 Change: Improved Comment: Systolic BP at 130 after ntg. Course/Dx - Course Course Of Treatment: 73-year-old female with history of end-stage COPD on 5 L of oxygen at home, hypertension, recent right hip fracture who presents w respiratory distress. Shortness of breath ddx: Most likely hypertensive emergency. Placed on BiPAP. Given sublingual nitroglycerin 2 for blood pressure 200 systolic. Given albuterol given history of COPD with mild wheezing. Also consider: PNA - possibly inc MARQUITA infiltrate, given wbc elevated (although could be 2/2 steroids) will cover broadly w vanc/zosyn. PTX - breath sounds equal, no risk factors for PTX, CXR w/o e/o PTX. ACS - no CP, no EKG changes, initial trop mildly elevated likely demand ischemia. Low suspicion. CHF - no h/o CHF, no WADE or orthopnea, no BLE edema, CXR w/o pulmonary edema. PE - on anticoagulants, lower suspicion - Diagnoses Provider Diagnoses: Respiratory distress - Physician Notifications Discussed Care of Patient With: Eduardo Vo Time Discussed With Above Provider: 20:38 Instructed by Provider To: Admit As Inpatient - Critical Care Time Critical Care Time: 30-74 min - 30min Discharge ED - Sign-Out/Discharge Documenting (check all that apply): Patient Departure - Discharge Plan Condition: Stable Disposition: ADMITTED TO [facility] - Billing Disposition and Condition Condition: STABLE Disposition: Admitted to [facility] - Attestation Statements Document Initiated by Scribe: Yes Documenting Scribe: Ainsley Gresham Provider For Whom Anthony is Documenting (Include Credential): Renu Art MD. Scribe Attestation: Ainsley Carter, scribed for Renu Art MD. on 06/05/19 at 0147. Scribe Documentation Reviewed: Yes Provider Attestation: The documentation as recorded by the [email or web address] accurately reflects the service I personally performed and the decisions made by , Renu Art MD. Status of Scribe Document: Viewed
[2019-06-04] MEDS ORDERED: NS 0.9% 1000 ML** 1,000 ML IV ONE (20:34)
[2019-06-04] MEDS ORDERED: Labetalol IV* 5 MG/ML 20 ML VIAL IV PUSH ONE (20:35)
[2019-06-04] MEDS ORDERED: Vancomycin(*) 1,000 MG VIAL IVPB SCH (21:00)
[2019-06-04] MEDS ORDERED: Albuterol 2.5 MG/3 ML NEB.SOL* (0.083%) INH PRN (21:07)
[2019-06-04] MEDS ORDERED: Morphine ORAL.SOLN 10 mg* 2 MG/ML UDC 5 ml PO PRN (21:07)
[2019-06-04 21:08] LABS: Troponin I 0.03 ng/mL (<0.04)
[2019-06-04] MEDS ORDERED: Labetalol IV* 5 MG/ML 20 ML VIAL IV PUSH PRN ×2 (21:11→21:35)
[2019-06-04] MEDS ORDERED: Vancomycin(*) 1,000 MG - ED ONCE IVPB ONE ×2 (21:30)
[2019-06-04] MEDS ORDERED: Morphine INJ* 4 MG/ML 1 ML SYRINGE (NEW SYRINGE VERSION) IV PRN (22:16)
[2019-06-04] MEDS ORDERED: Lorazepam PYXIS KEY PRN (22:17)
[2019-06-04] MEDS ORDERED: LORazepam INJ* 2 MG/ML 1 ML VIAL IV PUSH PRN (22:17)
[2019-06-04] MEDS ORDERED: Morphine 4 MG/ML VIAL (1 ml) 4 MG/ML VIAL IV PRN (22:29)
[2019-06-04] MEDS: cefTRIAXone(*) 1 GM in NS 0.9% 50 ML* 50 ML IVPB SCH (22:59)
[2019-06-04] MEDS: methylPREDNISolone 125 MG* 2 ML VIAL IV SCH (23:45)
[2019-06-05] MEDS: Albuterol/Ipratropium NEB.SOL* Albuterol 2.5 MG/Ipratropium 0.5 MG 3 ML INH SCH ×7 (00:10→23:09)
[2019-06-05] MEDS: Diltiazem TAB* 30 MG PO SCH ×3 (00:17→20:13)
[2019-06-05 01:05] LABS: BUN/Creatinine Ratio 33.3 (8-20); Blood Urea Nitrogen 20 mg/dL (6-24); CO2 Carbon Dioxide 33 mmol/L (22-32); Calcium 8.9 mg/dL (8.6-10.3); Chloride 97 mmol/L (101-111); EGFR African American 118.2 (>60); EGFR Non-African American 97.7 (>60); Glucose 145 mg/dL (70-100); Sodium 138 mmol/L (135-145)
[2019-06-05 01:09] LABS: Anion Gap 8 mmol/L (2-11); Troponin I 0.17 ng/mL (<0.04)
[2019-06-05] MEDS: Aspirin 81 mg CHEW TAB* 81 MG TAB.CHEW PO SCH ×2 (01:44→09:12)
[2019-06-05 05:20] LABS: ABS Lymphocytes 0.2 10^3/ul (1.0-4.8); ABS Monocytes 0.2 10^3/ul (0-0.8); ABS Neutrophils 13.1 10^3/ul (1.5-7.7); Hematocrit 29 % (35-47); Hemoglobin 9.3 g/dL (12.0-16.0); Lymphocyte % 1.3 %; Mean Corpuscular HGB Conc 33 g/dL (31-36); Mean Corpuscular Hemoglobin 29 pg (27-31); Mean Corpuscular Volume 90 fL (80-97); Mean Platelet Volume 7.4 fL (7.4-10.4); Platelet Count 307 10^3/uL (150-450); Red Blood Count 3.17 10^6 /uL (3.70-4.87); Red Cell Distribution Width 16 % (10-15); White Blood Count 13.5 10^3/uL (3.5-10.8)
[2019-06-05] MEDS: Levothyroxine TAB* 50 MCG TAB PO SCH (05:23)
[2019-06-05 05:48] LABS: Troponin I 0.03 ng/mL (<0.04)
[2019-06-05] MEDS: SPIRIVA Respimat* (tiotropium) 2.5 mcg/inh Inhaler INH SCH (07:39)
[2019-06-05] MEDS: Mometasone/Formoter 200/5 MDI INH SCH (07:39)
[2019-06-05 08:04] LABS: BUN/Creatinine Ratio 33.9 (8-20); Calcium 9.2 mg/dL (8.6-10.3); EGFR African American 120.6 (>60); EGFR Non-African American 99.6 (>60); Potassium 3.8 mmol/L (3.5-5.0)
[2019-06-05] MEDS: Enoxaparin(*) 30 MG/0.3 ML SYR SUBCUT SCH (09:04)
[2019-06-05] MEDS: methylPREDNISolone 125 MG* 2 ML VIAL IV SCH ×2 (09:06→21:31)
[2019-06-05] MEDS: FLUoxetine CAP* 20 MG PO SCH (09:11)
[2019-06-05] MEDS: Folic Acid TAB* 1 MG PO SCH (09:11)
[2019-06-05] MEDS: Pantoprazole TAB * 40 MG TAB PO SCH (09:12)
[2019-06-05] MEDS: Morphine INJ* 4 MG/ML 1 ML SYRINGE (NEW SYRINGE VERSION) IV PRN ×3 (09:44→19:29)
--- NOTE | 2019-06-05 11:22 | HP ---
CC: Chandu Sorensen at [facility] * ADMISSION HISTORY AND PHYSICAL: DATE OF ADMISSION: 06/04/19 CHIEF COMPLAINT: Dyspnea. HISTORY OF PRESENT ILLNESS: Ms. Barbosa is a 74-year-old woman with end-stage COPD, chronically on 5 L of oxygen nasal canula who presented to emergency department from the [facility] with dyspnea. Her daughter is the main historian as the patient is wearing a BiPAP. The patient's daughter reports the patient was exposed to bleach 4 days ago where her room was cleaned and she was not removed from her room. Since then she has had progressive shortness of breath and cough. The daughter asked the patient to be evaluated [facility] a physician at the [facility], but she reports that this did not occur. Daughter came to see her mother this evening at the [facility] and saw her having worsening shortness of breath and had her brought to the hospital. The patient's cough is productive of rosales and green sputum. The daughter denies history of hypertension at the [facility]. In the emergency room this evening the patient's blood pressure was 219/106 on admission and this was treated with 2 sublingual nitroglycerin and a dose of IV labetalol. The patient was last admitted to this hospital from 05/07/19 to 05/15/19 with right femur fracture. She had ORIF with Dr. Hagan and was discharged to [facility] for rehabilitation. Her hospital stay was complicated by shingles as well. PAST MEDICAL HISTORY: Includes, 1. COPD. 2. Chronic hypoxic respiratory failure. 3. Anxiety. 4. Hypothyroidism. 5. Anemia. 6. GERD. 7. History of breast cancer. 8. Tachycardia. 9. History of MRSA pneumonia. PAST SURGICAL HISTORY: 1. Right hip ORIF earlier this month. 2. Tubal ligation. 3. Left breast lumpectomy. MEDICATIONS ON ADMISSION: 1. Albuterol nebulizer q.4 hours as needed for wheezing. 2. Azithromycin 500 mg p.o. daily. 3. Diltiazem 90 mg p.o. b.i.d. 4. Fluoxetine 60 mg p.o. daily. 5. Fluticasone/vilanterol 1 inhalation daily. 6. Folic acid 1 mg p.o. daily. 7. Gabapentin 400 mg p.o. t.i.d. 8. Levothyroxine 50 mcg p.o. daily. 9. Montelukast 10 mg p.o. daily. 10. Omeprazole 20 mg p.o. daily. 11. Prednisone 40 mg p.o. daily. 12. Senna with docusate 2 tablets p.o. q.h.s. 13. Incruse inhaler 1 inhalation daily. 14. Albuterol/ipratropium 1 neb q.4 hours p.r.n. wheezing. 15. Enoxaparin 30 mg subcutaneous daily for 30 days post hip fracture repair. 16. Lorazepam 0.5 mg p.o. q.6 hours p.r.n. anxiety. 17. Morphine oral concentrate 10 mg p.o. q.2 hours p.r.n. air hunger. 18. Oxycodone 5/325 mg 1 tablet p.o. q.4 hours p.r.n. pain. ALLERGIES: SULFA. FAMILY HISTORY: Notable for father of PR at age 65. He also had stroke. Mother at 73 of liver cancer. SOCIAL HISTORY: She lives at [facility]. She is retired. She is . She has a daughter, Shweta who is her healthcare proxy. She quit tobacco 12 years ago. No alcohol or drug use. REVIEW OF SYSTEMS: The patient denies any fevers but has had anorexia lately. The patient denies any chest pain, palpitations. The patient denies any hemoptysis. The patient denies any diarrhea, but has had some nausea without vomiting. The patient denies any abdominal pain. The patient denies any hematuria or dysuria. The patient has had a fall 3 days prior to admission landing on her left hip without any major injury. Remainder of a 14-point review of systems is negative other than that mentioned in the HPI. PHYSICAL EXAMINATION GENERAL: She is an elderly woman, chronically ill, in moderate respiratory distress. VITAL SIGNS: Temperature is 36.7, pulse 124 to 129, respirations are 15 to 20, oxygen saturation is 98% on BiPAP, blood pressure is 219/106. HEENT: Head is normocephalic, atraumatic. Sclerae anicteric. Pupils are equal , round, reactive to light and accommodation. Oropharynx is moist. No lesions. NECK: No JVD. No carotid bruits. No thyromegaly. LUNGS: Scattered rales at the bases bilaterally. HEART: Tachycardiac, irregular. No murmurs. ABDOMEN: Soft, nontender. Positive bowel sounds. No hepatosplenomegaly. EXTREMITIES: No peripheral edema. Dorsalis pedis pulses are trace bilaterally. NEUROLOGIC: Cranial nerves II through XII are intact. She is moving all 4 extremities with equal power. She is alert, cannot give history, orientation. DIAGNOSTIC STUDIES/LAB DATA: Sodium 135, potassium 3.6, chloride 91, bicarb 35 , BUN 20, creatinine 0.67, glucose 182, calcium 9.7. AST 28, ALT 32, BNP 71. PH of 7.35, PCO2 66, PO2 73 consistent with respiratory acidosis with some metabolic compensation. Troponin of 0.08. White count of 18.5, hemoglobin 10.6 , hematocrit 30%, platelets of 385. EKG shows sinus tachycardia of 125 beats per minute. No ischemic ST-T wave changes. Chest x-ray shows chronic interstitial markings. No acute infiltrates. ASSESSMENT AND PLAN: A 74-year-old woman presenting with hypertensive crisis with a degree of pulmonary edema. The patient will be admitted to the ICU and have her blood pressure lowered with IV labetalol as well as continuing her oral diltiazem. If her blood pressure remains very high, she may need a nitroprusside drip. Pulmonary edema may not be the entire cause as the BNP is not elevated and a chest x-ray looks unchanged. The patient also appears to have a COPD exacerbation. We will continue her nebulizers and give her ceftriaxone for possible bacterial flare of bronchitis. She will also be switched to intravenous Solu-Medrol to treat her chronic obstructive pulmonary disease more aggressively . She certainly has acute on chronic hypoxic respiratory failure, which requires rescue BiPAP. We subsequently talked to the patient and her daughter and she is do not resuscitate, do not intubate. We confirmed the MOLST. For DVT prophylaxis she will have subcutaneous Lovenox continued in her postop state. [id number]/[facility] #: [id number] [facility]
[2019-06-05] MEDS: LORazepam TAB(*) 0.5 MG PO PRN ×2 (13:57→20:14)
[2019-06-05] MEDS: oxyCODONE/Acetamin 5/325 MG* TAB PO PRN ×2 (13:58→21:31)
--- NOTE | 2019-06-05 14:12 | PN ---
Date of Service: 06/05/19 Critical Care Services: Resting comfortably on and off BiPAP Vital Signs: Temp Pulse Resp BP SpO2 FiO2 36.9 C 81 36 133/60 94 45 06/05/19 12:00 06/05/19 13:00 06/05/19 13:58 06/05/19 10:00 06/05/19 13:00 06/05 07:44 Physical Exam: Gen: In no distress HEENT: NCAT, PERRL Lungs: scant wheeze Cardiac: S1S2 regular Abdomen: soft, NT, ND, +BS Extremities: no edema Neuro: Grossly intact Fluid Balance (Past 24 Hours): I= O= Net Intake & Output 06/03/19 06/04/19 06/05/19 06/06/19 06:59 06:59 06:59 06:59 Intake Total 542 Output Total 250 Balance 292 Weight 55.8 kg Intake: IV Fluids 454 ABX - VANCOMYCIN 352 NS (0.9%) 2 IVPB 58 ABX - CEFTRIAXONE 58 Oral 30 Output: Urine 250 Other: Estimated Void Small # Bowel Movements 1 Estimated Stool Amount Small Small Labs: Laboratory Results - last 24 hr 06/04/19 06/04/19 06/04/19 19:48 19:48 19:48 WBC 18.5 H RBC 3.65 L Hgb 10.6 L Hct 33 L MCV 90 MCH 29 MCHC 32 RDW 16 H Plt Count 385 MPV 7.4 Neut % (Auto) 87.9 Lymph % (Auto) 3.2 [place] % (Auto) 7.3 Eos % (Auto) 0.8 Baso % (Auto) 0.8 Absolute Neuts (auto) 16.3 H Absolute Lymphs (auto) 0.6 L Absolute Monos (auto) 1.4 H Absolute Eos (auto) 0.2 Absolute Basos (auto) 0.1 Absolute Nucleated RBC 0.0 Nucleated RBC % 0.0 INR (Anticoag Therapy) VBG pH VBG pCO2 VBG pO2 VBG HCO3 VBG O2 Saturation VBG Base Excess Sodium 135 Potassium 3.6 Chloride 91 L Carbon Dioxide 35 H Anion Gap 9 BUN 24 Creatinine 0.67 Est GFR ( Amer) 104.4 Est GFR (Non-Af Amer) 86.3 BUN/Creatinine Ratio 35.8 H Glucose 182 H Lactic Acid 1.8 Calcium 9.7 Total Bilirubin 0.50 AST 28 ALT 32 Alkaline Phosphatase 112 H Troponin I 0.03 B-Natriuretic Peptide Total Protein 7.3 Albumin 4.1 Globulin 3.2 Albumin/Globulin Ratio 1.3 06/04/19 06/04/19 06/04/19 19:48 19:48 19:48 WBC RBC Hgb Hct MCV MCH MCHC RDW Plt Count MPV Neut % (Auto) Lymph % (Auto) [place] % (Auto) Eos % (Auto) Baso % (Auto) Absolute Neuts (auto) Absolute Lymphs (auto) Absolute Monos (auto) Absolute Eos (auto) Absolute Basos (auto) Absolute Nucleated RBC Nucleated RBC % INR (Anticoag Therapy) 1.19 H VBG pH 7.35 VBG pCO2 66 H VBG pO2 73.0 H VBG HCO3 31.3 H VBG O2 Saturation 95.2 H VBG Base Excess 8.3 H Sodium Potassium Chloride Carbon Dioxide Anion Gap BUN Creatinine Est GFR ( Amer) Est GFR (Non-Af Amer) BUN/Creatinine Ratio Glucose Lactic Acid Calcium Total Bilirubin AST ALT Alkaline Phosphatase Troponin I B-Natriuretic Peptide 71 Total Protein Albumin Globulin Albumin/Globulin Ratio 06/05/19 06/05/19 06/05/19 00:34 05:14 05:14 WBC 13.5 H RBC 3.17 L Hgb 9.3 L Hct 29 L MCV 90 MCH 29 MCHC 33 RDW 16 H Plt Count 307 MPV 7.4 Neut % (Auto) 97.0 Lymph % (Auto) 1.3 [place] % (Auto) 1.7 Eos % (Auto) 0.0 Baso % (Auto) 0.0 Absolute Neuts (auto) 13.1 H Absolute Lymphs (auto) 0.2 L Absolute Monos (auto) 0.2 Absolute Eos (auto) 0.0 Absolute Basos (auto) 0.0 Absolute Nucleated RBC 0.0 Nucleated RBC % 0.0 INR (Anticoag Therapy) VBG pH VBG pCO2 VBG pO2 VBG HCO3 VBG O2 Saturation VBG Base Excess Sodium 138 141 Potassium TNP 3.8 Chloride 97 L 97 L Carbon Dioxide 33 H 32 Anion Gap 8 12 H BUN 20 20 Creatinine 0.60 0.59 Est GFR ( Amer) 118.2 120.6 Est GFR (Non-Af Amer) 97.7 99.6 BUN/Creatinine Ratio 33.3 H 33.9 H Glucose 145 H 154 H Lactic Acid Calcium 8.9 9.2 Total Bilirubin AST ALT Alkaline Phosphatase Troponin I 0.17 H* 0.03 B-Natriuretic Peptide Total Protein Albumin Globulin Albumin/Globulin Ratio Studies: CXR with possible left sided infiltrate, COPD Nutrition: Eating Impression: COPD exacerbation possibly secondary to pneumonia Plan: Acute Hypoxic resp Failure - steroids, bronchodilators to treat COPD exacerbation. BiPAP as much for anxiety as true pulmonary distress. Treating Pneumonia as well. CAP - Ceftriaxone, no fever, some leukocytosis and a mild infiltrate. May not need full course of ABx Severe Anxiety - trying to spare the anxiolytics, doing very well with a fan at this time and actually sleeping when I was last in the room. Making progress. DNR/DNI.
[2019-06-05] MEDS: Docusate CAP* 100 MG PO SCH (20:14)
[2019-06-05] MEDS: Senna TAB 8.6 mg* TAB PO SCH (20:14)
[2019-06-05] MEDS ORDERED: Senna/Docusate (NF) TAB PO SCH (21:00)
[2019-06-05] MEDS: cefTRIAXone(*) 1 GM in NS 0.9% 50 ML* 50 ML IVPB SCH (21:30)
[2019-06-06] MEDS: Morphine INJ* 4 MG/ML 1 ML SYRINGE (NEW SYRINGE VERSION) IV PRN ×4 (01:39→20:25)
[2019-06-06] MEDS: LORazepam TAB(*) 0.5 MG PO PRN ×3 (02:53→23:06)
[2019-06-06] MEDS: Albuterol/Ipratropium NEB.SOL* Albuterol 2.5 MG/Ipratropium 0.5 MG 3 ML INH SCH ×6 (03:00→23:03)
[2019-06-06] MEDS: Mometasone/Formoter 200/5 MDI INH SCH (07:49)
[2019-06-06] MEDS: SPIRIVA Respimat* (tiotropium) 2.5 mcg/inh Inhaler INH SCH (07:49)
[2019-06-06] MEDS: Levothyroxine TAB* 50 MCG TAB PO SCH (08:39)
[2019-06-06] MEDS: Diltiazem TAB* 30 MG PO SCH ×2 (09:43→20:25)
[2019-06-06] MEDS: FLUoxetine CAP* 20 MG PO SCH (09:44)
[2019-06-06] MEDS: Folic Acid TAB* 1 MG PO SCH (09:45)
[2019-06-06] MEDS: Pantoprazole TAB * 40 MG TAB PO SCH (09:45)
[2019-06-06] MEDS: Aspirin 81 mg CHEW TAB* 81 MG TAB.CHEW PO SCH (09:46)
[2019-06-06] MEDS: methylPREDNISolone 125 MG* 2 ML VIAL IV SCH (09:53)
[2019-06-06] MEDS: Enoxaparin(*) 30 MG/0.3 ML SYR SUBCUT SCH (10:01)
--- NOTE | 2019-06-06 11:17 | PN ---
Date of Service: 06/06/19 Critical Care Services: Complaining of left hip as primary issue. Breathing vastly improved. Vital Signs: Temp Pulse Resp BP SpO2 FiO2 36.8 C 85 30 150/82 99 45 06/06/19 04:00 06/06/19 09:00 06/06/19 10:00 06/06/19 10:00 06/06/19 09:00 06/05 07:44 Physical Exam: Gen: Awake and sharp of mind and tongue. HEENT: NCAT, PERRL Lungs: Scant wheeze but improved Cardiac: S1S2 regular Abdomen: soft, NT, ND Extremities: no edema Neuro: grossly non-focal Fluid Balance (Past 24 Hours): I= O= Net Intake & Output 06/04/19 06/05/19 06/06/19 06/07/19 06:59 06:59 06:59 06:59 Intake Total 542 365 120 Output Total 250 200 Balance 292 165 120 Weight 55.8 kg 55.9 kg Intake: IV Fluids 454 55 ABX - CEFTRIAXONE 55 ABX - VANCOMYCIN 352 NS (0.9%) 2 IVPB 58 ABX - CEFTRIAXONE 58 Oral 30 310 120 Output: Urine 250 200 Other: Estimated Void Large # Bowel Movements 1 Estimated Stool Amount Small Small # Voids 1 0 Labs: Reviewed. No new labs. Studies: CXR reviewed. Plain films of pelvis reviewed. Nutrition: Eating. Impression: COPD exacerbation secondary to possible pneumonia doing well from a respiratory standpoint. Primary complaint now left hip pain present since a fall a few days ago. Plan: COPD Exacerbation - off BiPAP. 5L NC, baseline 4L. Breathing comfortably, wheeze has improved. Continue current COPD treatment and ABx. Pneumonia - CXR with a scant left infiltrate, WBC down from 18 to 13. Afebrile. Repeat CXR tomorrow and can DC ABx if previous infiltrate has resolved. Hip Pain - plain film negative. Complaining of pain in the deep groin consistent with femoral neck fx. Can't lay still long enough for MRI, will do CT. ? Sleep Apnea - patient and daughter concerned for BRENDAN. requesting a sleep study. Will D/W Social work on how to order a study and perhaps coordinate with day of discharge. Medically appropriate to be transferred to the floor. D/W pt and daughter in detail who voiced understanding and appreciation for the care as wlel as agreement with the plan.
[2019-06-06] MEDS ORDERED: predniSONE TAB* 5 MG PO SCH (12:00)
[2019-06-06] MEDS: oxyCODONE/Acetamin 5/325 MG* TAB PO PRN ×2 (12:18→22:37)
--- NOTE | 2019-06-06 17:09 | CONS ---
PULMONARY CONSULTATION REPORT: DATE OF CONSULT: 06/06/19 CONSULTATION REQUESTED BY: Dr. Petersen. REASON FOR CONSULT: Evaluation of possible obstructive sleep apnea. 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 The patient was brought in for evaluation of shortness of breath. The patient was found to be in acute COPD exacerbation. The patient also noted to be having hypertensive crisis and pulmonary edema. She was admitted to ICU, managed with IV labetalol drip. She was also treated for COPD exacerbation with steroids, bronchodilators and antibiotics. Pulmonary/sleep consultation was requested for evaluation of possible obstructive sleep apnea. The patient seen and examined at bedside. The patient reports improvement in shortness of breath. She has mild use of accessory muscles. She was also treated with rescue BiPAP during this ICU visit. The patient reports disruptive sleep at night. She denies difficulty falling asleep. She goes to bed around 8:30. She wakes up multiple times throughout the night. The patient also reports nocturia. She wakes up unrefreshed in the morning. She usually gets out of bed around 8 in the morning. The patient reports significant daytime fatigue and sleepiness. The patient takes multiple naps and also dozes off constantly throughout the day. The patient's daughter does report history of snoring. PAST MEDICAL HISTORY: 1. COPD. 2. Chronic hypoxemic respiratory failure. 3. Anxiety. 4. Hypothyroidism. 5. Anemia. 6. GERD. 7. History of breast cancer. 8. Tachycardia. 9. History of MRSA. PAST SURGICAL HISTORY: 1. Right hip ORIF. 2. Tubal ligation. 3. Left breast lumpectomy. MEDICATIONS: 1. Albuterol. 2. Azithromycin. 3. Diltiazem. 4. Fluoxetine. 5. Fluticasone/vilanterol. 6. Folic acid. 7. Gabapentin. 8. Levothyroxine. 9. Montelukast. 10. Omeprazole. 11. Prednisone. 12. Senna. 13. Incruse. 14. DuoNeb. 15. Enoxaparin. 16. Ativan. 17. Morphine. 18. Oxycodone. ALLERGIES: SULFA. FAMILY HISTORY: Notable for father with NE at 65 and stroke. Mother with liver cancer. SOCIAL HISTORY: Lives currently at [facility]. Former smoker, quit tobacco 12 years ago. No alcohol or drug abuse. REVIEW OF SYSTEMS: All 14 systems reviewed and as per HPI. PHYSICAL EXAMINATION: Thin elderly female in bed in no apparent distress. Vital Signs: Temperature 98.7, pulse 90 beats per minute, respiratory rate 19 per minute, O2 sat 99% to 100% on 4 L, blood pressure 150/82. HEENT: Pupils equal, react to light. Mucous memories moistening. Mallampati class IV airway , overall thick and elongated. Respiratory: Diminished air entry bilaterally, scattered wheeze present. Cardiovascular: S1, S2 present. Abdomen: Soft, nontender, nondistended, bowel sounds present. Extremities: Normal range of motion. Skin: No rash. LABORATORY EXAM: WBC count 13.5, hemoglobin 9.3, hematocrit 29, platelet count 307. VBG showed pH of 7.35, with pCO2 of 66 and pO2 of 73, O2 sat of 95%. Sodium 141, potassium 3.9, chloride 97, bicarb of 32, anion gap of 12, BUN 20, creatinine 0.59. Troponin normalized, was initially elevated. BNP within normal limits. Lactate within normal limits. Chest x-ray done on admission was personally reviewed by me - evidence of hyperinflation and prominence of interstitial markings and patchy airspace opacity, left upper lobe. IMPRESSION AND RECOMMENDATION: 74-year-old female with history of severe chronic obstructive pulmonary disease and chronic hypoxemic respiratory failure on home O2 at 5 L, admitted with shortness of breath, is being treated for acute chronic obstructive pulmonary disease exacerbation. The patient also diagnosed with pulmonary edema secondary to hypertensive urgency. The patient improved currently. Chronic obstructive pulmonary disease exacerbation is being optimally treated. The patient with several symptoms concerning for sleep apnea. She appears to be retaining CO2 with evidence of elevated bicarb. She would benefit from optimal management of sleep apnea given concern with overlap syndrome. Pathophysiology of sleep apnea was discussed in detail with the patient. Consequences of untreated sleep apnea, interventions for management of sleep apnea were discussed. The patient also being evaluated for recurrent falls and possible need for orthopedic procedure. Will order sleep study as outpatient and have that scheduled when we will follow up the patient in the pulmonary clinic. Thank you for allowing me to participate in the care of your patient. Will followup with you. [id number]/[facility] #: [id number] LAURA
[2019-06-06] MEDS: Docusate CAP* 100 MG PO SCH (20:25)
[2019-06-06] MEDS: Senna TAB 8.6 mg* TAB PO SCH (20:25)
[2019-06-06] MEDS: cefTRIAXone(*) 1 GM in NS 0.9% 50 ML* 50 ML IVPB SCH (21:44)
[2019-06-07] MEDS: Albuterol/Ipratropium NEB.SOL* Albuterol 2.5 MG/Ipratropium 0.5 MG 3 ML INH SCH ×6 (03:12→23:59)
[2019-06-07 04:49] LABS: Hematocrit 30 % (35-47); Hemoglobin 9.6 g/dL (12.0-16.0); Mean Corpuscular HGB Conc 32 g/dL (31-36); Mean Corpuscular Hemoglobin 29 pg (27-31); Mean Corpuscular Volume 90 fL (80-97); Mean Platelet Volume 7.6 fL (7.4-10.4); Platelet Count 410 10^3/uL (150-450); Red Blood Count 3.34 10^6 /uL (3.70-4.87); Red Cell Distribution Width 16 % (10-15); White Blood Count 15.6 10^3/uL (3.5-10.8)
[2019-06-07] MEDS: Morphine INJ* 4 MG/ML 1 ML SYRINGE (NEW SYRINGE VERSION) IV PRN ×2 (04:49→09:14)
[2019-06-07] MEDS: Levothyroxine TAB* 50 MCG TAB PO SCH (04:53)
[2019-06-07 05:13] LABS: BUN/Creatinine Ratio 53.7 (8-20); Calcium 9.4 mg/dL (8.6-10.3); EGFR African American 133.5 (>60); EGFR Non-African American 110.4 (>60); Phosphorus 3.4 mg/dL (2.5-5.0)
[2019-06-07] MEDS: LORazepam TAB(*) 0.5 MG PO PRN ×3 (06:14→22:41)
[2019-06-07] MEDS: Mometasone/Formoter 200/5 MDI INH SCH (07:48)
[2019-06-07] MEDS: SPIRIVA Respimat* (tiotropium) 2.5 mcg/inh Inhaler INH SCH (07:48)
[2019-06-07] MEDS: Enoxaparin(*) 30 MG/0.3 ML SYR SUBCUT SCH (08:46)
[2019-06-07] MEDS: predniSONE TAB* 10 MG PO SCH (08:46)
[2019-06-07] MEDS: Folic Acid TAB* 1 MG PO SCH (08:47)
[2019-06-07] MEDS: Aspirin 81 mg CHEW TAB* 81 MG TAB.CHEW PO SCH (08:47)
[2019-06-07] MEDS: FLUoxetine CAP* 20 MG PO SCH (08:47)
[2019-06-07] MEDS: Diltiazem TAB* 30 MG PO SCH ×2 (08:47→19:35)
[2019-06-07] MEDS: Pantoprazole TAB * 40 MG TAB PO SCH (08:47)
[2019-06-07] MEDS ORDERED: Influenza VAC *QUAD* 2019-20* 0.5 ML SYRINGE IM ONE (09:00)
[2019-06-07] MEDS: Morphine ORAL CONCENTRATE* 5 MG/0.25 ML ORAL.SYRIN PO PRN ×3 (13:12→19:35)
--- NOTE | 2019-06-07 15:58 | CONS ---
ORTHOPEDIC CONSULTATION DATE OF ADMISSION: 06/04/2019. DATE OF CONSULTATION: 06/07/2019. ATTENDING ORTHOPEDIC PROVIDER: Dr. Cuauhtemoc Hagan. CHIEF COMPLAINT: Left hip pain. HISTORY OF PRESENT ILLNESS: The patient is a 74-year-old who has end-stage COPD and recent history of ORIF of the right hip which led to admission from 10/2018 to 05/15/2019. Today, we are asked to see her due to left hip pain with a fall one week ago. The patient states that she fell one week ago at [facility] and has been having pain in the left hip ever since. She has been able to bear weight through the left lower extremity, but it has been painful. Today , she has pain only with movement in the left hip. Otherwise, she is quite comfortable. There is no associated numbness or tingling. Pain is in the form of sharp, severe pain with movement, better with rest. PAST MEDICAL HISTORY: COPD, anxiety, hypothyroidism, anemia, GERD, breast cancer, tachycardia, MRSA. PAST SURGICAL HISTORY: Cannulated screws right hip, tubal ligation, left breast lumpectomy. ALLERGIES: SULFA. FAMILY HISTORY: Father ID, age 65. SOCIAL HISTORY: She lives at [facility]. She is retired and . REVIEW OF SYSTEMS: General: Denies fever or chills. HEENT: Denies headache. Cardiac: Denies chest pain. Respiratory: Confirms shortness of breath. Abdomen: Denies any abdominal pain. Musculoskeletal: Denies any pain of the upper extremities or right lower extremity. Has pain in the left hip. No other left lower extremity pain. Neuro: Denies any decreased sensation bilateral upper or lower extremities. PHYSICAL EXAM: General: The patient is in no acute distress. Vital Signs: Temperature 97.2, pulse rate 89, respiratory rate 22, oxygen saturation 97, blood pressure 145/73. HEENT: Normocephalic, atraumatic. Lungs: Mild wheezing throughout bilateral lung barr. Heart: S1, S2. Abdomen: Soft, nontender. Extremities: Bilateral upper extremities with skin envelope intact, nontender to palpation, able to flex and extend all joints without pain. Lower extremities: Right lower extremity: Skin envelope intact, nontender to palpation, able to flex and extend all joints without pain, negative log roll at the hip. Left lower extremity: Skin envelope intact, able to flex and extend at toes, ankle, knee and hip. There is mild pain with hip flexion into the groin, but no severe pain, negative log roll, negative heel strike. Neuro: Sensation intact to light touch throughout bilateral lower extremities. DIAGNOSTIC STUDIES/LAB DATA: CT left lower extremity shows displaced fracture of the left inferior pubic ramus, as well as a nondisplaced fracture of the medial aspect of the left acetabulum. ASSESSMENT: Left inferior pubic ramus and acetabular fracture. PLAN: Patient to be weightbearing as tolerated with assistive device. These are nonoperative fractures. The patient should have repeat x-rays when she is mobilizing, standing pelvic views. She can follow-up with Orthopedics in roughly two weeks. [facility] [id number]/[facility] #: [id number] MTDD
--- NOTE | 2019-06-07 16:57 | CONSULT ---
Palliative / Hospice Consult Ordering Provider: Rishi Petersen - Subjective Code Status: DNR Advance Directives Location: In Chart MOLST Part A Completed: Yes - DNR Date: 06/07/19 MOLST Part E Completed:: Yes - DNI/DNH/CC only, no FT or IV fluid Date: 06/07/19 HCP Completed: Yes - History or Present Illness History or Present Illness: This 74 year old woman has had 6 hospitalizations in the last few months, here and elsewhere, for COPD exacerbations, falls, hip fracture requiring ORIF with spinal anesth., and now is in the ICU for hypertensive urgency. She was admitted to [facility] 04/01/19 for COPD exacerbation, and palliative consultation at that time with Dr. Bello determined that she was appropriate for hospice services, but she was directed to [facility] instead because her room and board would be covered. The patient is now here because she was brought to the ER, after being exposed to bleach in her SNF room and developing severe respiratory symptoms. She is chronically on 5 L O2 and her O2 sats drop into the 70's when it is removed. She is dyspneic at rest, using accessory muscles of respiration. Her hypertensive urgency is now resolved. Lab Values: Abnormal Lab Results 06/07/19 06/07/19 06/07/19 04:35 04:35 04:35 WBC 15.6 H RBC 3.34 L Hgb 9.6 L Hct 30 L MCV 90 MCH 29 MCHC 32 RDW 16 H Plt Count 410 MPV 7.6 Sodium 139 Potassium 4.0 Chloride 97 L Carbon Dioxide 37 H Anion Gap 5 BUN 29 H Creatinine 0.54 Est GFR ( Amer) 133.5 Est GFR (Non-Af Amer) 110.4 BUN/Creatinine Ratio 53.7 H Glucose 133 H Calcium 9.4 Ionized Calcium 1.19 Phosphorus 3.4 Magnesium 2.0 Laboratory Last Values WBC 15.6 10^3/uL (3.5-10.8) H 06/07/19 04:35 RBC 3.34 10^6 /uL (3.70-4.87) L 06/07/19 04:35 Hgb 9.6 g/dL (12.0-16.0) L 06/07/19 04:35 Hct 30 % (35-47) L 06/07/19 04:35 MCV 90 fL (80-97) 06/07/19 04:35 MCH 29 pg (27-31) 06/07/19 04:35 MCHC 32 g/dL (31-36) 06/07/19 04:35 RDW 16 % (10-15) H 06/07/19 04:35 Plt Count 410 10^3/uL (150-450) 06/07/19 04:35 MPV 7.6 fL (7.4-10.4) 06/07/19 04:35 Neut % (Auto) 97.0 % 06/05/19 05:14 Lymph % (Auto) 1.3 % 06/05/19 05:14 [place] % (Auto) 1.7 % 06/05/19 05:14 Eos % (Auto) 0.0 % 06/05/19 05:14 Baso % (Auto) 0.0 % 06/05/19 05:14 Absolute Neuts (auto) 13.1 10^3/ul (1.5-7.7) H 06/05/19 05:14 Absolute Lymphs (auto) 0.2 10^3/ul (1.0-4.8) L 06/05/19 05:14 Absolute Monos (auto) 0.2 10^3/ul (0-0.8) 06/05/19 05:14 Absolute Eos (auto) 0.0 10^3/ul (0-0.6) 06/05/19 05:14 Absolute Basos (auto) 0.0 10^3/ul (0-0.2) 06/05/19 05:14 Absolute Nucleated RBC 0.0 10^3/ul 06/05/19 05:14 Nucleated RBC % 0.0 06/05/19 05:14 INR (Anticoag Therapy) 1.19 (0.82-1.09) H 06/04/19 19:48 VBG pH 7.35 (7.32-7.43) 06/04/19 19:48 VBG pCO2 66 mmHg (41-51) H 06/04/19 19:48 VBG pO2 73.0 mmHg (35-45) H 06/04/19 19:48 VBG HCO3 31.3 mmol/L (24-28) H 06/04/19 19:48 VBG O2 Saturation 95.2 % (70-80) H 06/04/19 19:48 VBG Base Excess 8.3 mmol/L (0.0-4.0) H 06/04/19 19:48 Sodium 139 mmol/L (135-145) 06/07/19 04:35 Potassium 4.0 mmol/L (3.5-5.0) 06/07/19 04:35 Chloride 97 mmol/L (101-111) L 06/07/19 04:35 Carbon Dioxide 37 mmol/L (22-32) H 06/07/19 04:35 Anion Gap 5 mmol/L (2-11) 06/07/19 04:35 BUN 29 mg/dL (6-24) H 06/07/19 04:35 Creatinine 0.54 mg/dL (0.51-0.95) 06/07/19 04:35 Est GFR ( Amer) 133.5 (>60) 06/07/19 04:35 Est GFR (Non-Af Amer) 110.4 (>60) 06/07/19 04:35 BUN/Creatinine Ratio 53.7 (8-20) H 06/07/19 04:35 Glucose 133 mg/dL (70-100) H 06/07/19 04:35 Lactic Acid 1.8 mmol/L (0.5-2.0) 06/04/19 19:48 Calcium 9.4 mg/dL (8.6-10.3) 06/07/19 04:35 Ionized Calcium 1.19 mmol/L (1.16-1.32) 06/07/19 04:35 Phosphorus 3.4 mg/dL (2.5-5.0) 06/07/19 04:35 Magnesium 2.0 mg/dL (1.9-2.7) 06/07/19 04:35 Total Bilirubin 0.50 mg/dL (0.2-1.0) 06/04/19 19:48 AST 28 U/L (13-39) 06/04/19 19:48 ALT 32 U/L (7-52) 06/04/19 19:48 Alkaline Phosphatase 112 U/L (34-104) H 06/04/19 19:48 Troponin I 0.03 ng/mL (<0.04) 06/05/19 05:14 B-Natriuretic Peptide 71 pg/mL (<=100) 06/04/19 19:48 Total Protein 7.3 g/dL (6.4-8.9) 06/04/19 19:48 Albumin 4.1 g/dL (3.2-5.2) 06/04/19 19:48 Globulin 3.2 g/dL (2-4) 06/04/19 19:48 Albumin/Globulin Ratio 1.3 (1-3) 06/04/19 19:48 - Objective Active Medications: Albuterol (Ventolin 2.5 Mg/3 Ml Neb.Vandana*) 2.5 mg INH Q4H PRN PRN Reason: SOB/WHEEZING Albuterol/Ipratropium (Duoneb (Albuterol 2.5 Mg/Ipratropium 0.5 Mg)) 1 neb INH [id number] AWAKE [facility] Last Admin: 06/07/19 14:29 Dose: 1 neb Aspirin (Aspirin 81 Mg Chew Tab*) 81 mg PO DAILY [facility] Last Admin: 06/07/19 08:47 Dose: 81 mg Diltiazem HCl (Cardizem Tab*) 90 mg PO BID [facility] Last Admin: 06/07/19 08:47 Dose: 90 mg Docusate Sodium (Colace Cap*) 200 mg PO BEDTIME [facility] Last Admin: 06/06/19 20:25 Dose: Not Given Enoxaparin Sodium (Lovenox(*)) 30 mg SUBCUT DAILY [facility] Stop: 06/09/19 10:00 Last Admin: 06/07/19 08:46 Dose: 30 mg Fluoxetine HCl (Prozac Cap*) 60 mg PO DAILY [facility] Last Admin: 06/07/19 08:47 Dose: 60 mg Folic Acid (Folvite Tab*) 1 mg PO QAM [facility] Last Admin: 06/07/19 08:47 Dose: 1 mg Ceftriaxone Sodium 1 gm/ (Sodium Chloride) 50 mls @ 100 mls/hr IVPB Q24H [facility] Last Admin: 06/06/19 21:44 Dose: 100 mls/hr Labetalol HCl (Trandate Iv*) 40 mg IV PUSH Q3H PRN PRN Reason: BLOOD PRESSURE Levothyroxine Sodium (Synthroid Tab*) 50 mcg PO 0600 [facility] Last Admin: 06/07/19 04:53 Dose: 50 mcg Lorazepam (Ativan Tab(*)) 0.5 mg PO Q6H PRN PRN Reason: ANXIETY Last Admin: 06/07/19 14:10 Dose: 0.5 mg Mometasone Furoate/Formoterol Fumar (Dulera 200/5 Mdi*) 2 puff INH DAILY [facility] Last Admin: 06/07/19 07:48 Dose: 2 puff Morphine Sulfate (Morphine Oral Concentrate*) 15 mg PO Q2H PRN PRN Reason: severe pain or air hunger Last Admin: 06/07/19 15:42 Dose: 15 mg Oxycodone/Acetaminophen (Percocet 5/325 Tab*) 1 tab PO Q4H PRN PRN Reason: PAIN - MODERATE Last Admin: 06/06/19 22:37 Dose: 1 tab Pantoprazole Sodium (Protonix Tab*) 40 mg PO DAILY [facility] Last Admin: 06/07/19 08:47 Dose: 40 mg Prednisone (Deltasone Tab*) 55 mg PO DAILY [facility]; Taper Stop: 06/19/19 11:59 Last Admin: 06/07/19 08:46 Dose: 60 mg Senna (Senokot 8.6 Mg Tab*) 2 tab PO BEDTIME [facility] Last Admin: 06/06/19 20:25 Dose: 2 tab Tiotropium [place] (Spiriva Respimat 2.5 Mcg) 2 puff INH DAILY [facility] Last Admin: 06/07/19 07:48 Dose: 2 puff Vital Signs: Vital Signs: Temp Pulse Resp BP Pulse Ox 97.2 F 89 22 145/73 97 06/07/19 14:32 06/07/19 14:29 06/07/19 14:29 06/07/19 14:20 06/07/19 14:29 Patient Weight: Weight 123 lb 3.814 oz Intake and Output: Intake & Output 06/05/19 06/06/19 06/07/19 06/08/19 06:59 06:59 06:59 06:59 Intake Total 542 365 240 360 Output Total 250 200 Balance 292 165 240 360 Weight 123 lb 0.287 oz 123 lb 3.814 oz Intake: IV Fluids 454 55 ABX - CEFTRIAXONE 55 ABX - VANCOMYCIN 352 NS (0.9%) 2 IVPB 58 ABX - CEFTRIAXONE 58 Oral 30 310 240 360 Output: Urine 250 200 Other: Estimated Void Large Medium Large # Bowel Movements 1 0 Estimated Stool Amount Small Small # Voids 1 1 1 ADLs: Meal Record Start: 06/04/19 21: 53 Freq: 09,13,18 Status: Complete Protocol: Created 06/04/19 21:53 System (Rec: 06/04/19 21:53 System ICU-C25) Document 06/05/19 09:00 [id number] (Rec: 06/05/19 11:41 [id number] ICU-C25) Document 06/05/19 13:00 [id number] (Rec: 06/05/19 15:59 [id number] ICU-C12) Document 06/05/19 18:00 [id number] (Rec: 06/05/19 19:53 [id number] ICU-C22) Document 06/06/19 09:00 [id number] (Rec: 06/06/19 10:55 [id number] ICU-C15) ADLs: Meal Record Start: 06/06/19 14: 06 Freq: DAILY@0900,1400,1800 Status: Active Protocol: Created 06/06/19 14:06 [id number] (Rec: 06/06/19 14:06 [id number] ICU-C15) Document 06/06/19 18:00 [id number] (Rec: 06/06/19 23:05 [id number] ICU-M23) Document 06/07/19 09:00 [id number] (Rec: 06/07/19 14:30 [id number] ICU-C15) Intake and Output Start: 06/04/19 19: 41 Freq: Status: Complete Protocol: Created 06/04/19 19:41 System (Rec: 06/04/19 19:41 System [id number]) Intake and Output Start: 06/04/19 21: 53 Freq: Q8HR Status: Complete Protocol: Created 06/04/19 21:53 System (Rec: 06/04/19 21:53 System ICU-C25) Document 06/04/19 22:00 [id number] (Rec: 06/04/19 23:42 [id number] ICU-M30) Document 06/04/19 23:00 [id number] (Rec: 06/04/19 23:42 [id number] ICU-M30) Document 06/05/19 00:00 [id number] (Rec: 06/05/19 00:48 [id number] ICU-C12) Document 06/05/19 01:00 [id number] (Rec: 06/05/19 01:10 [id number] ICU-C12) Document 06/05/19 02:00 [id number] (Rec: 06/05/19 02:04 [id number] ICU-C12) Document 06/05/19 03:00 [id number] (Rec: 06/05/19 03:03 [id number] ICU-C12) Document 06/05/19 04:00 [id number] (Rec: 06/05/19 04:19 [id number] ICU-C12) Document 06/05/19 05:00 [id number] (Rec: 06/05/19 05:07 [id number] ICU-C12) Document 06/05/19 06:00 [id number] (Rec: 06/05/19 06:33 [id number] ICU-C12) Document 06/05/19 12:00 [id number] (Rec: 06/05/19 13:05 [id number] ICU-C25) Document 06/05/19 20:00 [id number] (Rec: 06/06/19 05:26 [id number] ICU-L03) Document 06/06/19 00:00 [id number] (Rec: 06/06/19 01:12 [id number] ICU-L03) Document 06/06/19 05:26 [id number] (Rec: 06/06/19 05:26 [id number] ICU-L03) Document 06/06/19 08:00 [id number] (Rec: 06/06/19 10:18 [id number] ICU-C15) Intake and Output Start: 06/06/19 14: 06 Freq: DAILY@0600,1400,2200 Status: Active Protocol: Created 06/06/19 14:06 [id number] (Rec: 06/06/19 14:06 [id number] ICU-C15) Document 06/06/19 21:25 [id number] (Rec: 06/06/19 21:26 [id number] ICU-M23) Document 06/07/19 04:59 [id number] (Rec: 06/07/19 04:59 [id number] ICU-M23) Document 06/07/19 14:00 [id number] (Rec: 06/07/19 14:31 [id number] ICU-C15) General Impression: Alert, with dyspnea at rest and RR 22, labored. Head: Symmetrical Eyes: No Scleral Icterus Neck: Trachea Midline Cardiovascular: NL Sounds; No Murmurs; No JVD Respiratory: Symmetrical Chest Expansion and Respiratory Effort Extremities: No Edema Neurological: Alert and Oriented x 3 - Assessment Assessment: This patient has end-stage COPD and is appropriate for hospice services with chronic respiratory failure. Per Dr. Valentine's consultation, the patient has s/s consistent with sleep apnea, but at this point the patient is requesting no further testing, and no sleep study. She has modified and updated her MOLST to reflect these wishes. - Plan Consult Plan (MU): Hospice Plan: Discussed options with patient and her daughter. They both do not want the patient to return to [facility]. I will investigate the availability of an admission to a hospice residence bed and let Dr. Matamoros know in the AM. Face sheet faxed to [facility]. The patient qualifies for hospice on the basis of end stage COPD and respiratory failure. - Time On Unit Date of Evaluation: 06/07/19 Hospice Consult Time in: 16:15 Hospice Consult Time Out: 17:05 Hospice Consult Time Total: 50 > 50% of Time Spend In Counseling or Coordinating Care: Yes
--- NOTE | 2019-06-07 18:25 | PN ---
Subjective Date of Service: 06/07/19 Interval History: Pt is feeling better today but got upset she was still in the ICU instead of on 4N. Currently her breathing is relatively comfortable. She does have mild- moderate pain in the L hip and wonders about the results of her CT scan that was done yesterday. Objective Active Medications: Albuterol (Ventolin 2.5 Mg/3 Ml Neb.Vandana*) 2.5 mg INH Q4H PRN PRN Reason: SOB/WHEEZING Albuterol/Ipratropium (Duoneb (Albuterol 2.5 Mg/Ipratropium 0.5 Mg)) 1 neb INH [id number] AWAKE [facility] Last Admin: 06/07/19 14:29 Dose: 1 neb Aspirin (Aspirin 81 Mg Chew Tab*) 81 mg PO DAILY [facility] Last Admin: 06/07/19 08:47 Dose: 81 mg Diltiazem HCl (Cardizem Tab*) 90 mg PO BID [facility] Last Admin: 06/07/19 08:47 Dose: 90 mg Docusate Sodium (Colace Cap*) 200 mg PO BEDTIME [facility] Last Admin: 06/06/19 20:25 Dose: Not Given Enoxaparin Sodium (Lovenox(*)) 30 mg SUBCUT DAILY [facility] Stop: 06/09/19 10:00 Last Admin: 06/07/19 08:46 Dose: 30 mg Fluoxetine HCl (Prozac Cap*) 60 mg PO DAILY [facility] Last Admin: 06/07/19 08:47 Dose: 60 mg Folic Acid (Folvite Tab*) 1 mg PO QAM [facility] Last Admin: 06/07/19 08:47 Dose: 1 mg Ceftriaxone Sodium 1 gm/ (Sodium Chloride) 50 mls @ 100 mls/hr IVPB Q24H [facility] Last Admin: 06/06/19 21:44 Dose: 100 mls/hr Labetalol HCl (Trandate Iv*) 40 mg IV PUSH Q3H PRN PRN Reason: BLOOD PRESSURE Levothyroxine Sodium (Synthroid Tab*) 50 mcg PO 0600 [facility] Last Admin: 06/07/19 04:53 Dose: 50 mcg Lorazepam (Ativan Tab(*)) 0.5 mg PO Q6H PRN PRN Reason: ANXIETY Last Admin: 06/07/19 14:10 Dose: 0.5 mg Mometasone Furoate/Formoterol Fumar (Dulera 200/5 Mdi*) 2 puff INH DAILY [facility] Last Admin: 06/07/19 07:48 Dose: 2 puff Morphine Sulfate (Morphine Oral Concentrate*) 15 mg PO Q2H PRN PRN Reason: severe pain or air hunger Last Admin: 06/07/19 15:42 Dose: 15 mg Oxycodone/Acetaminophen (Percocet 5/325 Tab*) 1 tab PO Q4H PRN PRN Reason: PAIN - MODERATE Last Admin: 06/06/19 22:37 Dose: 1 tab Pantoprazole Sodium (Protonix Tab*) 40 mg PO DAILY [facility] Last Admin: 06/07/19 08:47 Dose: 40 mg Prednisone (Deltasone Tab*) 55 mg PO DAILY [facility]; Taper Stop: 06/19/19 11:59 Last Admin: 06/07/19 08:46 Dose: 60 mg Senna (Senokot 8.6 Mg Tab*) 2 tab PO BEDTIME [facility] Last Admin: 06/06/19 20:25 Dose: 2 tab Tiotropium [place] (Spiriva Respimat 2.5 Mcg) 2 puff INH DAILY [facility] Last Admin: 06/07/19 07:48 Dose: 2 puff Vital Signs - 8 hr 06/07/19 06/07/19 06/07/19 11:01 12:00 12:05 Temperature 97.5 F Pulse Rate 94 95 Respiratory 20 23 Rate Blood Pressure (mmHg) O2 Sat by Pulse 94 97 Oximetry 06/07/19 06/07/19 06/07/19 12:29 13:00 14:00 Temperature Pulse Rate 87 88 105 Respiratory 23 23 37 Rate Blood Pressure 151/70 (mmHg) O2 Sat by Pulse 96 92 92 Oximetry 06/07/19 06/07/19 06/07/19 14:10 14:20 14:29 Temperature Pulse Rate 88 89 Respiratory 28 26 22 Rate Blood Pressure 145/73 (mmHg) O2 Sat by Pulse 98 97 Oximetry 06/07/19 14:32 Temperature 97.2 F Pulse Rate Respiratory Rate Blood Pressure (mmHg) O2 Sat by Pulse Oximetry Oxygen Devices in Use Now: Nasal Cannula Appearance: Elderly female sitting up in bed, NAD Eyes: No Scleral Icterus Ears/Nose/Mouth/Throat: Mucous Membranes Moist Respiratory: Symmetrical Chest Expansion and Respiratory Effort, - - diminished throught anteriorly Cardiovascular: NL Sounds; No Murmurs; No JVD, RRR, No Edema Abdominal: NL Sounds; No Tenderness; No Distention Extremities: No Clubbing, Cyanosis Skin: No Nodules or Sclerosis Neurological: Alert and Oriented x 3 Result Diagrams: 06/07/19 04:35 06/07/19 04:35 Additional Lab and Data: Lab Results 06/04/19 06/04/19 06/04/19 Range/Units 19:48 19:48 19:48 WBC 18.5 H (3.5-10.8) 10^3/uL RBC 3.65 L (3.70-4.87) 10^6 /uL Hgb 10.6 L (12.0-16.0) g/dL Hct 33 L (35-47) % MCV 90 (80-97) fL MCH 29 (27-31) pg MCHC 32 (31-36) g/dL RDW 16 H (10-15) % Plt Count 385 (150-450) 10^3/uL MPV 7.4 (7.4-10.4) fL Neut % (Auto) 87.9 % Lymph % (Auto) 3.2 % [place] % (Auto) 7.3 % Eos % (Auto) 0.8 % Baso % (Auto) 0.8 % Absolute Neuts (auto) 16.3 H (1.5-7.7) 10^3/ul Absolute Lymphs (auto) 0.6 L (1.0-4.8) 10^3/ul Absolute Monos (auto) 1.4 H (0-0.8) 10^3/ul Absolute Eos (auto) 0.2 (0-0.6) 10^3/ul Absolute Basos (auto) 0.1 (0-0.2) 10^3/ul Absolute Nucleated RBC 0.0 10^3/ul Nucleated RBC % 0.0 INR (Anticoag Therapy) 1.19 H (0.82-1.09) VBG pH 7.35 (7.32-7.43) VBG pCO2 66 H (41-51) mmHg VBG pO2 73.0 H (35-45) mmHg VBG HCO3 31.3 H (24-28) mmol/L VBG O2 Saturation 95.2 H (70-80) % VBG Base Excess 8.3 H (0.0-4.0) mmol/L Microbiology and Other Data: Microbiology 06/05/19 05:14 Aerobic Blood Culture - Preliminary Blood Venous No Growth Day 2 Anaerobic Blood Culture - Preliminary No Growth Day 2 06/04/19 20:16 Blood Culture - Preliminary Blood Venous No Growth Day 2 Assess/Plan/Problems-Billing Ms Barbosa is well known to me from prior hospitalizations who presented to the ER with c/o SOB and was admitted for a COPD exacerbation. - Patient Problems (1) Fracture of left pelvis Current Visit: Yes Status: Acute Code(s): S32.9XXA - FRACTURE OF UNSP PARTS OF LUMBOSACRAL SPINE AND PELVIS, INIT SNOMED Code(s): 99034720 Comment: CT of the pelvis done for persistent c/o L hip pain shows L inferior pubic rami fracture and L acetabular fracture. She had been evaluated previously in the ER for the pain after a fall an X-ray was negative. Continue pain control. Ortho consult done- can be weight bearing as tolerated. (2) COPD exacerbation Current Visit: Yes Status: Acute Code(s): J44.1 - CHRONIC OBSTRUCTIVE PULMONARY DISEASE W (ACUTE) EXACERBATION SNOMED Code(s): 444206225 Comment: Doing well, no further signs of exacerbation. Continue O2, nebs, inhalers, prednisone. As above pt qualifies for hospice and will likely have bed at the residence on Tuesday. Continue ceftriaxone x1 more day for possible pna (unlikley- I think her exacerbation is secondary to anxiety and endstage COPD). (3) Acute and chronic respiratory failure Current Visit: Yes Status: Acute Code(s): J96.20 - ACUTE AND CHR RESP FAILURE, UNSP W HYPOXIA OR HYPERCAPNIA SNOMED Code(s): 07505899 Comment: Pt with chronic hypoxic respiratory failure requiring 4-5L O2 continuously. Dr. Car saw the patient today and the patient agrees to hospice. She will likely have a hospice bed for this coming Tuesday. (4) Anxiety Current Visit: Yes Status: Acute Code(s): F41.9 - ANXIETY DISORDER, UNSPECIFIED SNOMED Code(s): 92766240 Comment: Continue SSRI and prn ativan. (5) Hypothyroidism Current Visit: Yes Status: Acute Code(s): E03.9 - HYPOTHYROIDISM, UNSPECIFIED SNOMED Code(s): 89836071 Comment: Continue current dose of synthroid. (6) DVT prophylaxis Current Visit: Yes Status: Acute Code(s): Z29.9 - ENCOUNTER FOR PROPHYLACTIC MEASURES, UNSPECIFIED SNOMED Code(s): 374892977 Comment: Breana (7) DNR (do not resuscitate) Current Visit: Yes Status: Acute
[2019-06-07] MEDS: Senna TAB 8.6 mg* TAB PO SCH (19:34)
[2019-06-07] MEDS: Docusate CAP* 100 MG PO SCH (19:36)
[2019-06-07] MEDS: cefTRIAXone(*) 1 GM in NS 0.9% 50 ML* 50 ML IVPB SCH (22:43)
[2019-06-08] MEDS: Morphine ORAL CONCENTRATE* 5 MG/0.25 ML ORAL.SYRIN PO PRN ×2 (03:42→09:23)
[2019-06-08 04:24] VITALS: BP 170/79
[2019-06-08] MEDS: Levothyroxine TAB* 50 MCG TAB PO SCH (06:22)
[2019-06-08] MEDS: Albuterol/Ipratropium NEB.SOL* Albuterol 2.5 MG/Ipratropium 0.5 MG 3 ML INH SCH ×2 (06:22→07:02)
[2019-06-08] MEDS ORDERED: Albuterol/Ipratropium NEB.SOL* Albuterol 2.5 MG/Ipratropium 0.5 MG 3 ML INH SCH (07:01)
[2019-06-08] MEDS: Mometasone/Formoter 200/5 MDI INH SCH (07:45)
[2019-06-08] MEDS: SPIRIVA Respimat* (tiotropium) 2.5 mcg/inh Inhaler INH SCH (07:46)
[2019-06-08] MEDS ORDERED: Influenza VAC *QUAD* 2019-20* 0.5 ML SYRINGE IM ONE (09:00)
[2019-06-08] MEDS: Diltiazem TAB* 30 MG PO SCH (09:19)
[2019-06-08] MEDS: Folic Acid TAB* 1 MG PO SCH (09:20)
[2019-06-08] MEDS: LORazepam TAB(*) 0.5 MG PO PRN (09:20)
[2019-06-08] MEDS: FLUoxetine CAP* 20 MG PO SCH (09:20)
[2019-06-08] MEDS: predniSONE TAB* 10 MG PO SCH (09:21)
[2019-06-08] MEDS: Pantoprazole TAB * 40 MG TAB PO SCH (09:22)
[2019-06-08] MEDS: Aspirin 81 mg CHEW TAB* 81 MG TAB.CHEW PO SCH (09:22)
[2019-06-08] MEDS: Enoxaparin(*) 30 MG/0.3 ML SYR SUBCUT SCH (09:23)
--- NOTE | 2019-06-08 10:35 | DS ---
CC: Dr. Chandu Sorensen * DISCHARGE SUMMARY: DATE OF ADMISSION: 06/04/19 DATE OF DISCHARGE: 06/08/19 PRIMARY CARE PROVIDER: Dr. Chandu Sorensen at [facility]. PRINCIPAL DIAGNOSES: 1. Chronic obstructive pulmonary disease exacerbation. 2. Hypertensive urgency. 3. Left pelvic fracture. SECONDARY DIAGNOSES: 1. Anxiety. 2. Hypothyroidism. 3. Chronic hypoxic respiratory failure. DISCHARGE MEDICATIONS: 1. Prednisone 40 mg p.o. daily. 2. Incruse Ellipta 1 puff inhaled daily. 3. Sennoside-docusate sodium 2 tabs p.o. q.h.s. 4. Omeprazole 20 mg p.o. daily. 5. Morphine oral concentrate 15 mg p.o. q.2 hours p.r.n. pain or air hunger. 6. Singulair 10 mg p.o. daily. 7. Synthroid 50 mcg p.o. daily. 8. Lorazepam 0.5 mg p.o. q.6 hours p.r.n. anxiety. 9. Gabapentin 400 mg p.o. t.i.d. 10. Breo Ellipta 1 puff inhaled daily. 11. Prozac 60 mg p.o. daily. 12. Diltiazem 90 mg p.o. b.i.d. 13. Aspirin 81 mg p.o. daily. 14. DuoNeb 1 neb inhale q.6 hours standing. HOSPITAL COURSE: Ms. Barbosa is a 74-year-old female with a history of end- stage COPD with chronic hypoxic respiratory failure, requiring 4 to 5 L of oxygen continuously, who presented to the emergency room from [facility] with complaints of shortness of breath. The patient was initially requiring BiPAP. The patient had been exposed to a significant amount of bleach 4 days prior to her admission. Since that time, she had had progressive shortness of breath and cough. In the emergency room, the patient was found to have a markedly elevated blood pressure of 219/106. This was treated with IV labetalol and sublingual nitroglycerin. The patient was admitted to the ICU for COPD exacerbation and hypertensive urgency. In terms of the hypertensive urgency, the patient's blood pressure has come back down to a normal range. She continues on diltiazem 90 mg p.o. twice daily. There was a concern for possible pulmonary edema related to her hypertensive urgency; however, she did not receive any diuretic therapy and generally her breathing has improved. The patient has been treated for COPD exacerbation with steroid standing nebulizer treatments and ceftriaxone for concern of possible pneumonia. The patient has had 5 days of ceftriaxone. Given the patient's severe end-stage COPD, I spoke at length with both the patient and her daughter about possibly pursuing hospice. Dr. Car was able to evaluate the patient on 06/07/19 and felt that the patient was appropriate for the hospice residence. The patient has been offered a bed for the hospice residence for today, 06/08/19. Both the patient and her daughter are aware of this and are accepting the bed. All prescriptions have been sent to [facility] at the request of her daughter, who will vegetable picker the medications and take them to the residence. Also during the course of the hospitalization, the patient complained of severe left hip pain. She had a fall in early May where she sustained a fracture to the right hip and this was surgically repaired. She subsequently had a fall on 06/01/19. She was evaluated in the emergency room for this; however, no fracture was identified. Due to the persistent pain, a CT of the pelvis was obtained and did reveal a left inferior pubic rami fracture as well as fracture extending into the left acetabulum. Orthopedics consultation was obtained. The fractures are felt to be nonoperative and the patient is able to weight bear as tolerated. I discussed at length again with the patient and her daughter that at this point treatment of her COPD will be symptomatic in nature. She has been receiving Roxanol 10 mg every 2 hours as needed at the [place] [facility]. This helps , but does not completely take away her symptoms. I discussed trialing a higher dose of morphine at 15 mg every 2 hours as needed and the patient agrees. The patient will be discharged to hospice residence and will have Roxanol 15 mg every 2 hours ordered as needed. She will also continue on p.r.n. Ativan for anxiety. The Roxanol can be used for both the pain in the left hip as well as air hunger. On the day of discharge, Carole is awake, alert, and oriented, sitting on commode , trying to have a bowel movement. Her cardiac exam reveals a tachycardic rate , though again she is struggling to have a bowel movement. Her heart rate is regular. Her lungs are markedly diminished throughout. Her abdomen is soft, nontender, nondistended. There is no lower extremity edema. FOLLOWUP CONCERNS: The patient is being discharged to the hospice residence today, 06/08/19. Activity level is as tolerated and the patient can weight bear as tolerated. Condition on discharge is stable, but guarded. Diet is regular. TIME SPENT: Forty minutes was spent on this discharge. [id number]/[facility] #: [id number] LAURA
== END 2019-06-08 11:17 | disposition hospice, home (50) | DRG 190 ==
LOC: ED 19:32 → ICU 21:05
PROVIDERS: ADMIT Internal Medicine; ATTEND Hospitalist
PROC: 5A09357 Assistance with Respiratory Ventilation, Less than 24 Consecutive Hours, Continuous Positive Airway Pressure (ICD-10-PCS; principal; 2019-06-04)
DX: J44.1 Chronic obstructive pulmonary disease with (acute) exacerbation (principal); S32.402A Unspecified fracture of left acetabulum, initial encounter for closed fracture; J96.21 Acute and chronic respiratory failure with hypoxia; J18.9 Pneumonia, unspecified organism; S32.502A Unspecified fracture of left pubis, initial encounter for closed fracture; J96.11 Chronic respiratory failure with hypoxia; I16.0 Hypertensive urgency; K21.9 Gastro-esophageal reflux disease without esophagitis; M19.90 Unspecified osteoarthritis, unspecified site; W19.XXXA Unspecified fall, initial encounter; Z66 Do not resuscitate; G47.30 Sleep apnea, unspecified; F41.9 Anxiety disorder, unspecified; E03.9 Hypothyroidism, unspecified; Z79.52 Long term (current) use of systemic steroids; Z79.82 Long term (current) use of aspirin; Z99.81 Dependence on supplemental oxygen; Y92.9 Unspecified place or not applicable; Z87.01 Personal history of pneumonia (recurrent); Z85.3 Personal history of malignant neoplasm of breast; Z86.14 Personal history of Methicillin resistant Staphylococcus aureus infection; Z98.51 Tubal ligation status; Z88.2 Allergy status to sulfonamides; Z82.3 Family history of stroke; Z80.0 Family history of malignant neoplasm of digestive organs; Z91.040 Latex allergy status; Z88.6 Allergy status to analgesic agent; Z88.5 Allergy status to narcotic agent; Z87.891 Personal history of nicotine dependence
CPT/HCPCS: 36415; 70450; 71045; 80048; 80053; 82330; 82803; 83605; 83735; 83880; 84100; 84484; 85025; 85027; 85610; 87040; 93005; 94640; 94660; 96361; 96365; 96375; 99283; 99285; A9270-GY; J0696; J1650; J2270; J2543; J2930; J3370; J3535; J7512